=== PATIENT | female | born 1960 | race Caucasian/White ===

== ENCOUNTER 2020-01-21 00:50 | Outpatient (CLI) | payer OTHER, SELFPAY ==
[2020-01-21 17:34] LABS: SARS-CoV-2 RNA PCR Negative
== END 2020-01-21 00:51 | disposition home or self-care (01) ==
LOC: ANHCOVIDDT 00:50
PROVIDERS: PCP Nurse Practitioner Adult Health; Visit Provider Internal Medicine Gastroenterology
DX: Z01.818 Encounter for other preprocedural examination (principal); Z11.59 Encounter for screening for other viral diseases
CPT/HCPCS: 87635; C9803; U0003

== ENCOUNTER 2020-01-23 01:12 | Day surgery (SDC) | payer OTHER, SELFPAY ==
[2020-01-16 14:02] VITALS: BMI 29.9
[2020-01-23 09:30] VITALS: BP 114/66; PULSE 90; RESP 16; TEMP 37.1; O2SAT 100; BMI 29.4
--- NOTE | 2020-01-23 09:35 | PM.HPGS ---
History of Present Illness History of Present Illness Consent: Risks, benefits, and alternatives have been discussed and questions answered. Patient agrees to proceed with procedure. Chief complaint: neoplasm screening Narrative: Shaara Cancino is a 59 year old W female returns for follow-up colonoscopy secondary history of colonic polyps last colonoscopy was 3 years ago which time tubular adenoma was removed. There is no family history of colon polyps or colon cancer. The patient is asymptomatic. [facility] Past Medical History Medical History Hyperlipidemia Hypertension Hypothyroidism MVP (mitral valve prolapse) SVT (supraventricular tachycardia) s/p ablation Surgical History Surgical History (Updated 01/23/20 @ 09:37 by Tito Hall MD) Status post emergency section Status post hemorrhoidectomy Family History Family History Sibling Family history of hypothyroidism Social History Social History Smoking status: Never smoker Alcohol intake: current Gender identity (if verbalized by the patient): Female Meds Home Medications and Allergies Home Medications Medication Instructions Recorded Confirmed Type lisinopril 10 mg tablet 10 mg PO DAILY #90 tablet 07/24/19 01/16/20 Rx simvastatin 20 mg tablet 20 mg PO DAILY #90 tablet 01/07/20 01/16/20 Rx MegaRed [place]-3 Krill Oil 900 mg PO DAILY 01/16/20 01/16/20 History coenzyme Q10 [CoQ-10] 100 mg PO DAILY 01/16/20 01/16/20 History conj estrog-medroxyprogest ashlie 0.45 tablet PO DAILY 01/16/20 01/16/20 History [Prempro] fluticasone propionate [Flonase 1 spray INTRANASAL DAILY 01/16/20 01/16/20 History Allergy Relief] glucosamine-chondroitin [Osteo 250 tablet PO DAILY 01/16/20 01/16/20 History Bi-Flex] levothyroxine 75 mcg PO DAILY 01/16/20 01/16/20 History rstyarfyebgt-Va-srdo-minerals 1 tablet PO DAILY 01/16/20 01/16/20 History [Multiple Vitamin, Womens] Allergies Allergy/AdvReac Type Severity Reaction Status Date / Time Sulfa (Sulfonamide Allergy Unknown Rash Verified 01/16/20 13:59 Antibiotics) sulfamethizole Allergy Unknown Rash Verified 01/16/20 13:59 trimethoprim Allergy Unknown Rash Verified 01/16/20 13:59 Exam Const: Orientation/consciousness: patient oriented x3 Resp: Auscultation: clear to auscultation bilaterally Cardio: Rate: regular rate Rhythm: regular rhythm Heart sounds: no murmurs GI: GI Palp: Yes Soft to palpation, No Tenderness to palpation present (GI), Yes No hepatosplenomegaly present and No Palpable mass present Auscultation: normal bowel sounds Neuro: General: patient oriented x3 and no focal motor deficits Extrem: General: no pedal edema Assessment and Plan Additional Plan screening colonoscopy secondary history of colonic polyps
--- NOTE | 2020-01-23 09:45 | WPDANESEPPF ---
Anes - Initial Pre Proc Eval Procedure: Operation Date: 01/23/20 10:30 Proposed Procedures p Screening Colonoscopy - Tito Hall MD Date/Time: 01/23/20 09:45 Surgeon: Tito Hall MD Pre Op Diagnosis: neoplasm screening Patient Data Age: 59 Gender: F Height: 1.68 m Weight: 84 kg Allergies Allergy/AdvReac Type Severity Reaction Status Date / Time Sulfa (Sulfonamide Allergy Unknown Rash Verified 01/23/20 09:39 Antibiotics) sulfamethizole Allergy Unknown Rash Verified 01/23/20 09:39 trimethoprim Allergy Unknown Rash Verified 01/23/20 09:39 Home Medications Medication Instructions Recorded Confirmed Type lisinopril 10 mg tablet 10 mg PO DAILY #90 tablet 07/24/19 01/16/20 Rx simvastatin 20 mg tablet 20 mg PO DAILY #90 tablet 01/07/20 01/16/20 Rx MegaRed [place]-3 Krill Oil 900 mg PO DAILY 01/16/20 01/16/20 History coenzyme Q10 [CoQ-10] 100 mg PO DAILY 01/16/20 01/23/20 History conj estrog-medroxyprogest ashlie 0.45 tablet PO DAILY 01/16/20 01/16/20 History [Prempro] fluticasone propionate [Flonase 1 spray INTRANASAL DAILY 01/16/20 01/16/20 History Allergy Relief] glucosamine-chondroitin [Osteo 250 tablet PO DAILY 01/16/20 01/16/20 History Bi-Flex] levothyroxine 75 mcg PO DAILY 01/16/20 01/16/20 History nsbuzbyglqlj-Ng-boym-minerals 1 tablet PO DAILY 01/16/20 01/16/20 History [Multiple Vitamin, Womens] Patient hx anesthesia problems: none Family hx anesthesia problems: none PMFSH Past Medical History Medical History Hyperlipidemia Hypertension Hypothyroidism MVP (mitral valve prolapse) SVT (supraventricular tachycardia) s/p ablation Surgical History Surgical History (Updated 01/23/20 @ 09:37 by Tito Hall MD) Status post emergency section Status post hemorrhoidectomy Family History Family History Sibling Family history of hypothyroidism Social History Social History Smoking status: Never smoker Alcohol intake: current Gender identity (if verbalized by the patient): Female Anes - Eval Final PreProcedure Day of Procedure 01/23/20 09:45 Patient weight: overweight Heart: regular rate and rhythm Lungs: clear to auscultation and normal air movement Airway: Mallampati scale class II Neurological: alert and oriented Last oral intake: >/= 8 hours ASA classification: III Emergent: no Anesthetic plan: proceed Anesthesia type and monitoring: general GIVS and standard monitoring Informed Consent: The patient's anesthetic plan and its attendant risks and benefits were discussed with the patient/family/POA. Questions were solicited and answers provided to the satisfaction of the patient/family/POA.
[2020-01-23] MEDS: LACTATED RINGERS 1,000 ML 150 ML IV CONT (09:57)
[2020-01-23 11:09] VITALS: BP 110/65; PULSE 76; RESP 25; O2SAT 98
[2020-01-23 11:19] VITALS: BP 111/56; PULSE 72; RESP 20; O2SAT 100
[2020-01-23 11:29] VITALS: BP 113/69; PULSE 60; RESP 13; O2SAT 100
== END 2020-01-23 11:35 | disposition home or self-care (01) ==
PROVIDERS: PCP Nurse Practitioner Adult Health; Visit Provider Internal Medicine Gastroenterology
PROC: 0DJD8ZZ Inspection of Lower Intestinal Tract, Via Natural or Artificial Opening Endoscopic (ICD-10-PCS; CPT 45378; principal; 2020-01-23 10:30)
DX: Z12.11 Encounter for screening for malignant neoplasm of colon (principal); K57.30 Diverticulosis of large intestine without perforation or abscess without bleeding; Z86.010 Personal history of colon polyps; E78.5 Hyperlipidemia, unspecified; I10 Essential (primary) hypertension; E03.9 Hypothyroidism, unspecified; I34.1 Nonrheumatic mitral (valve) prolapse
CPT/HCPCS: 45378; J2704; J7120

== ENCOUNTER → 2020-06-09 12:39 | Outpatient (CLI) | payer OTHER, SELFPAY ==
--- NOTE | ~2020-06-09 | MM_ITS ---
EXAMINATION: MM screening [facility] [place] HISTORY: Screening mammogram TECHNIQUE: Craniocaudal and mediolateral oblique 3-D tomosynthesis images were obtained and synthetic 2-D images were generated. CAD analysis was submitted and interpreted. COMPARISON: 02/24/2019 713 02/01/2018, 01/16/2017 BREAST PARENCHYMAL COMPOSITION: There are scattered areas of fibroglandular density. FINDINGS: There is no evidence of suspicious mass, calcification, or architectural distortion to sugg est malignancy in either breast. There has been no suspicious interval change. IMPRESSION: 1. No mammographic evidence of malignancy. 2. Recommend routine screening mammography in one year. BI-RADS Category 1: Negative Reviewed, dictated and finalized at location A. NESS SEGMENT MANAGER
== END ==
PROVIDERS: PCP Nurse Practitioner Adult Health; Visit Provider Physician Assistant
DX: Z12.31 Encounter for screening mammogram for malignant neoplasm of breast (principal)
CPT/HCPCS: 77063; 77067

== ENCOUNTER → 2021-04-26 16:06 | Outpatient (CLI) | payer OTHER, SELFPAY ==
--- NOTE | ~2021-04-26 | US_ITS ---
EXAMINATION: US thyroid EXAM DATE: 04/26/2021 16:21 INDICATION: Nontoxic single thyroid nodule. TECHNIQUE: Multiple grayscale and Doppler images of the thyroid were obtained (by a technologist who performed the scan) and subsequently reviewed. Individual nodules and recommendations may be reporte d in accordance with TI-RADS system as designated by the 2017 ACR White Paper TI-RADS committee. The re is no prior study for comparison. FINDINGS: The right thyroid lobe measures 4.0 x 1.4 x 1.4 cm, the left measuring 3.2 x 1.1 x 0.9 cm. There is m oderately diffusely heterogeneous thyroid echogenicity. Possible identification of left thyroid lobe category TR 4 nodule measuring 5 x 7 mm. This is not likely clinically significant. Right thyroid lob e is mildly enlarged. IMPRESSION: Heterogeneous thyroid, mildly enlarged right thyroid lobe. Return to clinical follow-up a nd if additional palpable abnormality develops a repeat ultrasound can be obtained. Reviewed, dictated and finalized at location A. IMPRESSION: Heterogeneous thyroid, mildly enlarged right thyroid lobe. Return t o clinical follow-up and if additional palpable abnormality develops a repeat u ltrasound can be obtained.
== END ==
PROVIDERS: PCP Nurse Practitioner Adult Health; Visit Provider Otolaryngology
DX: E04.9 Nontoxic goiter, unspecified (principal)
CPT/HCPCS: 76536

== ENCOUNTER 2022-06-09 11:27 | Outpatient (CLI) | payer OTHER, SELFPAY ==
[2022-06-09 11:39] LABS: Basophils Absolute Auto 0.1 K/mm3 (0.0-0.1); Basophils Percent Auto 1.1 % (0.2-1.2); Eosinophils Absolute Auto 0.2 K/mm3 (0-0.3); Eosinophils Percent Auto 2.9 % (0-4.4); Hematocrit 36.7 % (37.0-47.0); Hemoglobin 11.8 g/dL (12.0-15.0); Immature Granulocyte Absolute 0.01 K/mm3 (0.00-0.031); Immature Granulocyte Percent A 0.2 % (0-0.5); Lymphocytes Absolute Auto 1.32 K/mm3 (0.9-3.2); Lymphocytes Percent Auto 25.1 % (18.3-44.2); Mean Corpuscular HGB Conc 32.2 g/dl (32-36); Mean Corpuscular Hemoglobin 27.9 pg (26-34); Mean Corpuscular Volume 86.8 fl (80-100); Mean Platelet Volume 9.7 fl (7.4-10.4); Monocytes Absolute Auto 0.7 K/mm3 (0.1-0.6); Monocytes Percent Auto 14.1 % (2.6-8.5); Neutrophils Percent Auto 56.6 % (45.5-73.1); Platelet Count Result 242 k/mm3 (150-375); Red Blood Count 4.23 M/mm3 (4.2-5.4); White Blood Count 5.3 K/mm3 (4.5-10.0)
[2022-06-09 13:10] LABS: Iron 36 ug/dL (37-170)
[2022-06-09 13:14] LABS: Alanine Aminotransferase 13 U/L (6-35); Albumin Level 4.1 g/dL (3.5-5.1); Alkaline Phosphatase 78 U/L (38-126); Anion Gap 9 mmol/L (8-16); Aspartate Amino Transferase 19 U/L (14-36); Bilirubin,Total 0.3 mg/dL (0.2-1.3); Blood Urea Nitrogen 15 mg/dL (7-17); Calcium 8.7 mg/dL (8.4-10.2); Carbon Dioxide 25 mmol/L (22-30); Chloride 105 mmol/L (98-107); Estimated Glomerular Filt Rate > 60; Glucose 91 mg/dL (65-110); Potassium 3.9 mmol/L (3.4-5.0); Sodium 139 mmol/L (137-145)
[2022-06-09 13:20] LABS: Percent Iron Saturation 8 % (20-50)
[2022-06-09 13:47] LABS: Ferritin 9.47 ng/mL (11.1-264)
[2022-06-09 14:19] LABS: Folic Acid 12.7 ng/mL (2.76->20)
== END 2022-06-09 11:28 | disposition home or self-care (01) ==
LOC: ANHLAB 11:28
PROVIDERS: PCP Nurse Practitioner Adult Health; Visit Provider Internal Medicine Hematology & Oncology
DX: D64.9 Anemia, unspecified (principal)
CPT/HCPCS: 36415; 80053; 82607; 82728; 82746; 83540; 83550; 85025

== ENCOUNTER → 2022-06-16 16:00 | Outpatient (CLI) | payer OTHER, SELFPAY ==
--- NOTE | ~2022-06-16 | DEXA_ITS ---
Bone Density Report Name: MOO BOYD Age: 61 Sex: Female Ethnicity: White Date of : 1960 Indication: monitoring treatment; postmenopausal Referring Provider: DEMARIOCARRI Study: Bone densitometry was performed. Exam Date: June 16, 2022 Accession number: [id number] Bone Density: Region BMD T-score Z-score Classification AP Spine (L1-L4) 1.099 0.5 1.9 Normal Femoral Neck (Left) 0.810 -0.4 1.0 Normal Total Hip (Left) 0.967 0.2 1.2 Normal Femoral Neck (Right) 0.789 -0.5 0.8 Normal Total Hip (Right) 0.973 0.3 1.2 Normal Total Hip Mean 0.970 0.3 1.2 Normal World Health Organization criteria for BMD impression classify patients as: Normal (T-score at or above -1.0), Osteopenia (T-score between -1.0 and -2.5), or Osteoporosis (T-score at or below -2.5). 10-year Fracture Risk: FRAX not reported because: All T-scores for Spine Total, Hip Total, Femoral Neck at or above -1.0 Treated for osteoporosis Previous Exams: Region Exam Age BMD T-score BMD Change BMD Change Date g/cm2 vs Baseline vs Previous AP Spine(L1-L4) 06/16/2022 61 1.099 0.5 0.023 0.023 06/20/2017 56 1.076 0.3 Total Hip(Left) 06/16/2022 61 0.967 0.2 -0.020 -0.020 06/20/2017 56 0.987 0.4 Total Hip(Right) 06/16/2022 61 0.973 0.3 -0.022 -0.022 06/20/2017 56 0.996 0.4 *Denotes significance at 95% confidence level, LSC for AP Spine = 0.022 g/cm2, LSC for Total Hip = 0.027 g/cm2 Clinical Information Provided by Patient: Is being treated for osteoporosis Has used the following medications: HRT (i.e. estrogen/hormone therapy), Calcium Patient maximum height was 67 Menopause Age: 52 Does not regularly consume dairy products Drinks caffeinated beverages Onset of menses at age 14 Number of children 2 Impression: The patient has normal bone mass. No significant bone loss was observed. Discussion: PATIENT UNDER TREATMENT WITH NO SIGNIFICANT BMD LOSS SINCE LAST EXAM. In an untreated patient, BMD typically declines with age. A lack of decline or gain is usually a sign that treatment is efficacious and fracture risk is reduced. It is important to ask patients whether they are taking their medications and to encourage continued and appropriate compliance with their osteoporosis therapies to reduce fracture risk. It is also important to review their risk factors and encourage appropriate calcium
== END ==
PROVIDERS: PCP Nurse Practitioner Adult Health; Visit Provider Nurse Practitioner Adult Health
DX: Z78.0 Asymptomatic menopausal state (principal)
CPT/HCPCS: 77080

== ENCOUNTER → 2022-06-20 13:36 | Outpatient (CLI) | payer OTHER, SELFPAY ==
--- NOTE | ~2022-06-20 | MM_ITS ---
EXAMINATION: MM screening [facility] [place] HISTORY: Screening mammogram TECHNIQUE: Craniocaudal and mediolateral oblique 3-D tomosynthesis images were obtained and synthetic 2-D images were generated. CAD analysis was submitted and interpreted. COMPARISON: 06/09/2020, 02/24/2019, 02/08/2018 bilateral screening mammogram examinations BREAST PARENCHYMAL COMPOSITION: There are scattered areas of fibroglandular density. FINDINGS: There is no evidence of suspicious mass, calcification, or architectural distortion to sugg est malignancy in either breast. There has been no suspicious interval change. IMPRESSION: 1. No mammographic evidence of malignancy. 2. Recommend routine screening mammography in one year. BI-RADS Category 1: Negative Reviewed, dictated and finalized at location A. FORCE PLANNER
== END ==
PROVIDERS: PCP Nurse Practitioner Adult Health; Visit Provider Nurse Practitioner Adult Health
DX: Z12.31 Encounter for screening mammogram for malignant neoplasm of breast (principal)
CPT/HCPCS: 77063; 77067

== ENCOUNTER 2022-08-14 10:34 | Outpatient (CLI) | payer OTHER, SELFPAY ==
[2022-08-14 10:48] LABS: Hematocrit 41.3 % (37.0-47.0); Hemoglobin 13.8 g/dL (12.0-15.0); Mean Corpuscular HGB Conc 33.4 g/dl (32-36); Mean Corpuscular Hemoglobin 30.7 pg (26-34); Mean Corpuscular Volume 91.8 fl (80-100); Mean Platelet Volume 10.5 fl (7.4-10.4); Platelet Count Result 236 k/mm3 (150-375); Red Cell Distribution Width 13.8 % (11.5-14.5); White Blood Count 6.8 K/mm3 (4.5-10.0)
[2022-08-14 12:25] LABS: Iron 120 ug/dL (37-170)
[2022-08-14 12:28] LABS: Alanine Aminotransferase 13 U/L (6-35); Albumin Level 4.2 g/dL (3.5-5.1); Alkaline Phosphatase 75 U/L (38-126); Anion Gap 6 mmol/L (8-16); Aspartate Amino Transferase 18 U/L (14-36); Bilirubin,Total 0.4 mg/dL (0.2-1.3); Blood Urea Nitrogen 12 mg/dL (7-17); Calcium 8.6 mg/dL (8.4-10.2); Carbon Dioxide 27 mmol/L (22-30); Chloride 109 mmol/L (98-107); Estimated Glomerular Filt Rate > 60; Glucose 86 mg/dL (65-110); Potassium 4.2 mmol/L (3.4-5.0); Sodium 142 mmol/L (137-145)
[2022-08-14 13:26] LABS: Percent Iron Saturation 29 % (20-50)
[2022-08-14 13:38] LABS: Folic Acid 11.7 ng/mL (2.76->20)
== END 2022-08-14 10:35 | disposition home or self-care (01) ==
LOC: ANHLAB 10:35
PROVIDERS: PCP Nurse Practitioner Adult Health; Visit Provider Internal Medicine Hematology & Oncology
DX: D64.9 Anemia, unspecified (principal)
CPT/HCPCS: 36415; 80053; 82607; 82728; 82746; 83540; 83550; 85027

== ENCOUNTER 2023-02-06 11:41 | Outpatient (CLI) | payer OTHER, SELFPAY ==
[2023-02-06 11:50] LABS: Basophils Absolute Auto 0.1 K/mm3 (0.0-0.1); Basophils Percent Auto 1.3 % (0.2-1.2); Eosinophils Absolute Auto 0.2 K/mm3 (0-0.3); Eosinophils Percent Auto 2.3 % (0-4.4); Hematocrit 41.6 % (37.0-47.0); Hemoglobin 14.2 g/dL (12.0-15.0); Immature Granulocyte Absolute 0.01 K/mm3 (0.00-0.031); Immature Granulocyte Percent A 0.1 % (0-0.5); Lymphocytes Absolute Auto 1.83 K/mm3 (0.9-3.2); Lymphocytes Percent Auto 26.7 % (18.3-44.2); Mean Corpuscular HGB Conc 34.1 g/dl (32-36); Mean Corpuscular Hemoglobin 31.6 pg (26-34); Mean Corpuscular Volume 92.7 fl (80-100); Mean Platelet Volume 9.4 fl (7.4-10.4); Monocytes Absolute Auto 0.8 K/mm3 (0.1-0.6); Monocytes Percent Auto 11.5 % (2.6-8.5); Neutrophils Percent Auto 58.1 % (45.5-73.1); Platelet Count Result 245 k/mm3 (150-375); Red Blood Count 4.49 M/mm3 (4.2-5.4); Red Cell Distribution Width 11.7 % (11.5-14.5); White Blood Count 6.9 K/mm3 (4.5-10.0)
[2023-02-06 13:28] LABS: Iron 226 ug/dL (37-170)
[2023-02-06 13:38] LABS: Percent Iron Saturation 65 % (20-50)
[2023-02-06 13:43] LABS: Folic Acid 14.3 ng/mL (2.76->20)
== END 2023-02-06 11:42 | disposition home or self-care (01) ==
LOC: ANHLAB 11:43
PROVIDERS: PCP Nurse Practitioner Adult Health; Visit Provider Internal Medicine Hematology & Oncology
DX: D64.9 Anemia, unspecified (principal)
CPT/HCPCS: 36415; 82607; 82728; 82746; 83540; 83550; 85025

== ENCOUNTER 2023-02-12 13:32 | Outpatient (CLI) | payer OTHER, SELFPAY | END 2023-02-12 13:33 | disposition home or self-care (01) | LOC: ANHLAB 13:33 | PROVIDERS: PCP Nurse Practitioner Adult Health; Visit Provider Internal Medicine Hematology & Oncology | DX: E83.19 Other disorders of iron metabolism (principal) | CPT/HCPCS: 36415; 81256 ==

== ENCOUNTER 2023-05-10 15:38 | Outpatient (CLI) | payer OTHER, SELFPAY ==
[2023-05-10 15:53] LABS: Basophils Absolute Auto 0.1 K/mm3 (0.0-0.1); Eosinophils Absolute Auto 0.2 K/mm3 (0-0.3); Eosinophils Percent Auto 2.7 % (0-4.4); Hematocrit 39.9 % (37.0-47.0); Hemoglobin 13.5 g/dL (12.0-15.0); Immature Granulocyte Absolute 0.02 K/mm3 (0.00-0.031); Immature Granulocyte Percent A 0.3 % (0-0.5); Lymphocytes Absolute Auto 1.95 K/mm3 (0.9-3.2); Lymphocytes Percent Auto 27.9 % (18.3-44.2); Mean Corpuscular HGB Conc 33.8 g/dl (32-36); Mean Corpuscular Hemoglobin 31.5 pg (26-34); Mean Corpuscular Volume 93.2 fl (80-100); Mean Platelet Volume 9.8 fl (7.4-10.4); Monocytes Absolute Auto 0.7 K/mm3 (0.1-0.6); Neutrophils Absolute Auto 4.1 K/mm3 (1.3-6.7); Neutrophils Percent Auto 58.1 % (45.5-73.1); Platelet Count Result 249 k/mm3 (150-375); Red Blood Count 4.28 M/mm3 (4.2-5.4); Red Cell Distribution Width 11.5 % (11.5-14.5)
[2023-05-10 19:11] LABS: Iron 85 ug/dL (37-170); Percent Iron Saturation 28 % (20-50)
== END 2023-05-10 15:39 | disposition home or self-care (01) ==
PROVIDERS: PCP Nurse Practitioner Adult Health; Visit Provider Internal Medicine Hematology & Oncology
DX: E83.19 Other disorders of iron metabolism (principal)
CPT/HCPCS: 36415; 81256; 82728; 83540; 83550; 85025

== ENCOUNTER 2023-08-21 15:42 | Outpatient (CLI) | payer OTHER, SELFPAY ==
[2023-08-21 15:52] LABS: Basophils Absolute Auto 0.1 K/mm3 (0.0-0.1); Basophils Percent Auto 1.1 % (0.2-1.2); Eosinophils Absolute Auto 0.2 K/mm3 (0-0.3); Hematocrit 40.7 % (37.0-47.0); Hemoglobin 13.6 g/dL (12.0-15.0); Immature Granulocyte Absolute 0.02 K/mm3 (0.00-0.031); Immature Granulocyte Percent A 0.2 % (0-0.5); Lymphocytes Absolute Auto 2.13 K/mm3 (0.9-3.2); Lymphocytes Percent Auto 26.2 % (18.3-44.2); Mean Corpuscular HGB Conc 33.4 g/dl (32-36); Mean Corpuscular Hemoglobin 30.9 pg (26-34); Mean Corpuscular Volume 92.5 fl (80-100); Monocytes Absolute Auto 0.7 K/mm3 (0.1-0.6); Monocytes Percent Auto 8.7 % (2.6-8.5); Neutrophils Percent Auto 61.8 % (45.5-73.1); Platelet Count Result 246 k/mm3 (150-375); Red Cell Distribution Width 11.7 % (11.5-14.5); White Blood Count 8.1 K/mm3 (4.5-10.0)
[2023-08-21 17:41] LABS: Iron 87 ug/dL (37-170)
[2023-08-21 17:51] LABS: Percent Iron Saturation 25 % (20-50)
== END 2023-08-21 15:43 | disposition home or self-care (01) ==
LOC: ANHLAB 15:44
PROVIDERS: PCP Family Medicine; Visit Provider Internal Medicine Hematology & Oncology
DX: E83.19 Other disorders of iron metabolism (principal)
CPT/HCPCS: 36415; 82728; 83540; 83550; 85025

== ENCOUNTER 2023-12-26 12:15 | Outpatient (CLI) | payer OTHER, SELFPAY ==
[2023-12-26 12:35] LABS: Basophils Absolute Auto 0.1 K/mm3 (0.0-0.1); Basophils Percent Auto 1.1 % (0.2-1.2); Eosinophils Absolute Auto 0.1 K/mm3 (0-0.3); Eosinophils Percent Auto 1.7 % (0-4.4); Hematocrit 42.9 % (37.0-47.0); Immature Granulocyte Absolute 0.03 K/mm3 (0.00-0.031); Immature Granulocyte Percent A 0.4 % (0-0.5); Lymphocytes Absolute Auto 1.92 K/mm3 (0.9-3.2); Lymphocytes Percent Auto 23.6 % (18.3-44.2); Mean Corpuscular HGB Conc 32.6 g/dl (32-36); Mean Corpuscular Hemoglobin 30.6 pg (26-34); Mean Corpuscular Volume 93.7 fl (80-100); Mean Platelet Volume 10.1 fl (7.4-10.4); Monocytes Absolute Auto 0.8 K/mm3 (0.1-0.6); Monocytes Percent Auto 9.6 % (2.6-8.5); Neutrophils Absolute Auto 5.2 K/mm3 (1.3-6.7); Neutrophils Percent Auto 63.6 % (45.5-73.1); Platelet Count Result 238 k/mm3 (150-375); Red Blood Count 4.58 M/mm3 (4.2-5.4); Red Cell Distribution Width 11.9 % (11.5-14.5); White Blood Count 8.1 K/mm3 (4.5-10.0)
[2023-12-26 18:40] LABS: Iron 122 ug/dL (37-170)
[2023-12-26 18:49] LABS: Percent Iron Saturation 37 % (20-50)
== END 2023-12-26 12:16 | disposition home or self-care (01) ==
LOC: ANHLAB 12:17
PROVIDERS: PCP Physician Assistant; Visit Provider Internal Medicine Hematology & Oncology
DX: E83.19 Other disorders of iron metabolism (principal)
CPT/HCPCS: 36415; 82728; 83540; 83550; 85025

== ENCOUNTER 2023-12-27 15:40 | Outpatient (CLI) | payer OTHER, SELFPAY ==
--- NOTE | ~2023-12-27 | MM_ITS ---
EXAMINATION: MM screening [facility] [place] HISTORY: Screening TECHNIQUE: Craniocaudal and mediolateral oblique 3-D tomosynthesis images were obtained and synthetic 2-D images were generated. CAD analysis was submitted and interpreted. COMPARISON: Comparison to multiple prior studies sequentially, with oldest reviewed study dated 01/16. BREAST PARENCHYMAL COMPOSITION: Not dense: There are scattered areas of fibroglandular density. FINDINGS: There is no evidence of suspicious mass, calcification, or architectural distortion to sugg est malignancy in either breast. There has been no suspicious interval change. IMPRESSION: 1. No mammographic evidence of malignancy. 2. Recommend routine screening mammography in one year. BI-RADS Category 1: Negative Reviewed, dictated and finalized at location B.
== END 2023-12-27 15:41 ==
LOC: MICIMG 15:40
PROVIDERS: PCP Physician Assistant; Visit Provider Nurse Practitioner
DX: Z12.31 Encounter for screening mammogram for malignant neoplasm of breast (principal)
CPT/HCPCS: 77063; 77067

== ENCOUNTER 2024-03-20 15:49 | Outpatient (CLI) | payer OTHER, SELFPAY ==
--- NOTE | ~2024-03-20 | CT_ITS ---
EXAMINATION: CT soft tissue neck w con DATE: 03/20/2024 16:17 INDICATION: Otalgia, right ear. TECHNIQUE: Computed tomography (CT) of the neck was performed with 75 mL Omnipaque-350 intravenous co ntrast. Automated exposure control and iterative reconstruction technique were employed. The dose-sergio gth product was 338.89 mGy-cm. COMPARISON: None FINDINGS: There are no pathologically enlarged lymph nodes. There is no significant plaque in the pro ximal internal coronary arteries. There is 0% stenosis of the proximal internal carotid arteries rela tive to normal distal artery lumen diameters. The tympanic cavities and mastoid air cells are normal. The external auditory canals are normal. The parotid glands and submandibular glands are normal. The re is mild cervical spondylosis. There is severe osteoarthritis of the temporomandibular joints. Ther e is a loose body in right temporomandibular joint. IMPRESSION: 1. Severe osteoarthritis of the temporomandibular joints. Loose body in right temporomandibular joint . Reviewed, dictated and finalized at location A. IMPRESSION: 1. Severe osteoarthritis of the temporomandibular joints. Loose body in right t emporomandibular joint.
[2024-03-20 16:12] LABS: Estimated Glomerular Filt Rate > 60
== END 2024-03-20 15:50 ==
PROVIDERS: PCP Physician Assistant; Visit Provider Otolaryngology
DX: M19.09 Primary osteoarthritis, other specified site (principal)
CPT/HCPCS: 70491; Q9967

== ENCOUNTER 2024-04-28 15:52 | Outpatient (CLI) | payer OTHER, SELFPAY ==
[2024-04-28 16:05] LABS: Basophils Absolute Auto 0.1 K/mm3 (0.0-0.1); Basophils Percent Auto 0.9 % (0.2-1.2); Eosinophils Absolute Auto 0.1 K/mm3 (0-0.3); Eosinophils Percent Auto 1.2 % (0-4.4); Hematocrit 37.7 % (37.0-47.0); Hemoglobin 12.7 g/dL (12.0-15.0); Immature Granulocyte Absolute 0.03 K/mm3 (0.00-0.031); Immature Granulocyte Percent A 0.3 % (0-0.5); Lymphocytes Absolute Auto 2.25 K/mm3 (0.9-3.2); Lymphocytes Percent Auto 21.5 % (18.3-44.2); Mean Corpuscular HGB Conc 33.7 g/dl (32-36); Mean Corpuscular Hemoglobin 31.2 pg (26-34); Mean Corpuscular Volume 92.6 fl (80-100); Mean Platelet Volume 10.2 fl (7.4-10.4); Monocytes Absolute Auto 0.7 K/mm3 (0.1-0.6); Monocytes Percent Auto 7.1 % (2.6-8.5); Neutrophils Absolute Auto 7.2 K/mm3 (1.3-6.7); Platelet Count Result 264 k/mm3 (150-375); Red Blood Count 4.07 M/mm3 (4.2-5.4); Red Cell Distribution Width 11.9 % (11.5-14.5); White Blood Count 10.5 K/mm3 (4.5-10.0)
[2024-04-28 16:21] LABS: Iron 82 ug/dL (37-170)
[2024-04-28 16:31] LABS: Percent Iron Saturation 23 % (20-50)
== END 2024-04-28 15:53 | disposition home or self-care (01) ==
LOC: ANHLAB 15:54
PROVIDERS: PCP Physician Assistant; Visit Provider Internal Medicine Hematology & Oncology
DX: E83.19 Other disorders of iron metabolism (principal)
CPT/HCPCS: 36415; 82728; 83540; 83550; 85025

== ENCOUNTER 2024-10-28 15:39 | Outpatient (CLI) | payer OTHER, SELFPAY ==
[2024-10-28 15:52] LABS: Hematocrit 36.5 % (37.0-47.0); Hemoglobin 11.9 g/dL (12.0-15.0); Mean Corpuscular HGB Conc 32.6 g/dl (32-36); Mean Corpuscular Hemoglobin 30.1 pg (26-34); Mean Corpuscular Volume 92.2 fl (80-100); Mean Platelet Volume 9.9 fl (7.4-10.4); Platelet Count Result 246 k/mm3 (150-375); Red Blood Count 3.96 M/mm3 (4.2-5.4); White Blood Count 8.2 K/mm3 (4.5-10.0)
--- OUTSIDE RECORDS SUMMARY | 2024-10-28 17:06 | XMS_ITS | Data Portability ---
Author Organization [facility] Address [address] [place] [address] Care Team Providers Care Ems Instructor Name Role Phone ELIA ROSSI Primary Care Provider [phone] DINA SANDOVAL Primary Care Provider [phone] Assessment Encounter Date Assessment Date Assessment LastModified by Organization Details LastModified Time 09/05/2022 09/05/2022 Annual gynecological exam performed. Patient will come back in a year unless there are new symptoms. [email or web address] Not available 09/05/2022 16:56:20 09/14/2023 09/14/2023 Annual gynecological exam performed. Patient will come back in a year unless there are new symptoms. Not available 09/14/2023 10:55:17 10/01/2024 10/01/2024 Annual gynecological exam performed. Patient will come back in a year unless there are new symptoms. [email or web address] Not available 10/01/2024 17:09:17 Plan of Treatment Reminders Order Date Submit Date Provider Last Modified By Organization Details Last Modified Time Details Appointments None recorded. Lab None recorded. Referral None recorded. Procedures None recorded. Surgeries None recorded. Imaging MAMMO, diagnostic, digital, unilateral - Right breast lump noted at 5 o'clock position 2024 [facility] [address], [facility] [address], [place], [address], 12:10:10 MAMMO, screening, digital, bilateral 2023 024 [facility], [address], [address], [place], [address], 4 17:47:44 Medication Orders None recorded. Patient TargetsNo targets recorded. Patient InstructionsNo instructions recorded. Reason for Referral None Reported. Results Created Date Observation Date Name Description Value Unit Range Abnormal Flag Note LastModifiedBy Organization Detail LastModifiedTime 09/05/19 23 09/05/2022 IMAGE GUIDE D PAP AND HPV REGAR DLESS image guided Pap, HPV regardless of Pap result SEE RESULT S BELOW CASE REPOR T: Cytol ogy Gynec ologi john Repor t Case: [id number] Autho doreenrobbie joe Provi eleni: Maria Guadalupe Steele, JAYANT Colle cted: 09/05 1659 Order ing Locat ion: [place] [facility] Recei chip: 09/06 0230 First Scree n: Melony Lerma, CT Rescr een: Mari Sánchez ret, CT Speci men: Scree álvaro Pap - Image d, Cervi x STATE MENT OF ADEQU ACY: Satis facto ry for evalu ation Trans forma tion zone compo nent absen t The absen ce of an endoc ervic al compo nent was confi rmed by an addit ional scree ner. FINAL DIAGN OSIS: Negat jess for Intra epith elial Lesio n or Kathy olsen (NIL) . Elect perla mccarty shun d by Mari Sánchez ret, CT on 023 at 2:21 PM ----- ----- ----- ----- ----- ----- ----- ----- ----- ----- ----- ----- ----- ----- ----- ----- ----- ---- HPV RESUL TS: HPV mRNA E6/E7 : No HPV mRNA Detec jeremiah NOTE: This high risk HPV mRNA assay detec ts fourt een high- risk HPV types (16, 18, 31, 33, 35, 39, 45, 51, 52, 56, 58, 59, 66, 68) witho ut diffe renti ation . COMME NT: Note: This speci men was revie wed by a Cytot echno logis t and/o r Patho logis t (as indic ated in this repor t) after evalu ation using the Thinp rep Imagi ng Syste m. CLINI JOHN INFOR MATIO N: Menst rual Statu s: LMP (if appli cable ): Clini john Histo ry/Pr eviou s Pap: Type of Neopl arlin (if appli cable ): Signi fican t Clini john Findi ngs: Other Histo ry: Hormo ritchie (if appli cable ): PAP EDUCA GADIEL L NOTE: The Pap Test is a scree álvaro test with an inher ent false negat jess rate. Liqui d-bas ed sampl ing may decre ase, but will not elimi vasyl, false negat jess resul ts. A negat jess resul t does not precl ude the prese nce and/o r devel opmen t of disea se, since the prese nce of abnor mal cells in the sampl e depen ds on the locat ion of the lesio n and sampl ing techn ique. Ban nued regul ar scree álvaro is the best metho d of cance r preve ntion . If repor jeremiah cytol ogic findi ng do not corre late with physi john and/o r histo rical findi ngs, furth er inves tigat ion is recom abby d, as clini larry willoughby nted. Not Available [facility] (Lab) [address], [place], [address], 09/07/2022 15:23:07 09/14/19 24 09/14/2023 IMAGE GUIDE D PAP AND HPV REGAR DLESS image guided Pap, HPV regardless of Pap result SEE RESULT S BELOW CASE REPOR T: Cytol ogy Gynec ologi john Repor t Case: [id number] Autho velia g Provi eleni: Maria Guadalupe Steele, JAYANT Colle cted: 09/14 1403 Order ing Locat ion: [place] Patho logeduardo Recei chip: 09/17 0736 First Scree n: Fatimah Enciso, CT Speci men: Scree álvaro Pap - Image d, Cervi x STATE MENT OF ADEQU ACY: Satis facto ry for evalu ation Trans forma tion zone compo nent canno t be defin itive ly ident ified due to the prese nce of atrop hy or other hormo nal irwin es FINAL DIAGN OSIS: Negat jess for Intra epith elial Lesio n or Kathy olsen (NIL) . Atrop hic cell naldo kiser. Elect justinanayely manciaeduardo shun d by Fatimah Enciso, CT on 2023 at 7:42 AM ----- ----- ----- ----- ----- ----- ----- ----- ----- ----- ----- ----- ----- ----- ----- ----- ----- ---- HPV RESUL TS: HPV mRNA E6/E7 : No HPV mRNA Detec jeremiah NOTE: This high risk HPV mRNA assay detec ts fourt een high- risk HPV types (16, 18, 31, 33, 35, 39, 45, 51, 52, 56, 58, 59, 66, 68) witho ut diffe renti ation . COMME NT: This speci men was revie wed by a Cytot echno logis t and/o r Patho logis t (as indic ated in this repor t) after evalu ation using the Thinp rep Imagi ng Syste m. CLINI JOHN INFOR MATIO N: Menst rual Statu s: LMP (if appli cable ): Clini john Histo ry/Pr eviou s Pap: Type of Neopl arlin (if appli cable ): Signi fican t Clini john Findi ngs: Other Histo ry: Hormo ritchie (if appli cable ): PAP EDUCA GADIEL L NOTE: The Pap Test is a scree álvaro test with an inher ent false negat jess rate. Liqui d-bas ed sampl ing may decre ase, but will not elimi vasyl, false negat jess resul ts. A negat jess resul t does not precl ude the prese nce and/o r devel opmen t of disea se, since the prese nce of abnor mal cells in the sampl e depen ds on the locat ion of the lesio n and sampl ing techn ique. Ban nued regul ar scree álvaro is the best metho d of cance r preve ntion . If repor jeremiah cytol ogic findi ng do not corre late with physi john and/o r histo rical findi ngs, furth er inves tigat ion is recom abby d, as clini larry willoughby nted. Not Available [facility] (Lab) [address], [place], [address], 09/20/2023 08:46:55 10/02/19 25 10/01/2024 IMAGE GUIDE D PAP AND HPV REGAR DLESS image guided Pap, HPV regardless of Pap result SEE RESULT S BELOW CASE REPOR T: Cytol ogy Gynec ologi john Repor t Case: [id number] Autho velia g Provi eleni: Maria Guadalupe Steele, JAYANT Colle cted: 10/01 1706 Order ing Locat ion: [place] [facility] Recei chip: 10/02 0151 First Scree n: Nonichole ni, Moham ed, CT Speci men: Scree álvaro Pap - Image d, Cervi x STATE MENT OF ADEQU ACY: Satis facto ry for evalu ation Trans forma tion zone compo nent canno t be defin itive ly ident ified due to the prese nce of atrop hy or other hormo nal irwin es ----- ----- ----- ----- ----- ----- ----- ----- ----- ----- ----- ----- ----- ----- ----- ----- ----- ---- FINAL DIAGN OSIS: Negat jess for Intra epith elial Lesio n or Kathy burdency (NIL) . Atrop hic cell naldo rn. Elect perla mccarty shun d by Hermes rogel, CT on 025 at 0133 CLAY MINER ----- ----- ----- ----- ----- ----- ----- ----- ----- ----- ----- ----- ----- ----- ----- ----- ----- ---- HPV RESUL TS: HPV mRNA E6/E7 : No HPV mRNA Detec jeremiah NOTE: This high risk HPV mRNA assay detec ts fourt een high- risk HPV types (16, 18, 31, 33, 35, 39, 45, 51, 52, 56, 58, 59, 66, 68) witho ut diffe renti ation . COMME NT: This speci men was revie wed by a Cytot echno logis t and/o r Patho logis t (as indic ated in this repor t) after evalu ation using the Thinp rep Imagi ng Syste m. CLINI JOHN INFOR MATIO N: Menst rual Statu s: LMP (if appli cable ): Clini john Histo ry/Pr eviou s Pap: Type of Neopl arlin (if appli cable ): Signi fican t Clini john Findi ngs: Other Histo ry: Hormo ritchie (if appli cable ): PAP EDUCA GADIEL L NOTE: The Pap Test is a scree álvaro test with an inher ent false negat jess rate. Liqui d-bas ed sampl ing may decre ase, but will not elimi vasyl, false negat jess resul ts. A negat jess resul t does not precl ude the prese nce and/o r devel opmen t of disea se, since the prese nce of abnor mal cells in the sampl e depen ds on the locat ion of the lesio n and sampl ing techn ique. Ban nued regul ar scree álvaro is the best metho d of cance r preve ntion . If repor jeremiah cytol ogic findi ng do not corre late with physi jonh and/o r histo rical findi ngs, furth er inves tigat ion is recom abby d, as clini larry willoughby nted. Not Available [facility] (Lab) [address], [place], [address], 10/05/2024 03:36:35 12/27/19 24 12/27/2023 MAMMO , scree álvaro, digit al, bilat eral No observ ation record ed. [facility] [address], [place], [address], 01/03/2024 11:18:28 08/22/1908/22/2024 MAMMO , diagn ostic , digit al, unila teral No observ ation record ed. [facility] [address], [place], [address], 08/25/2024 17:50:27 Result Notes None recorded. Problems Name Problem SNOMED Code Status Onset Date Resolution Date Notes Provider Name and Address Organization Details Recorded Time Microscop ic hematuria 941319581 Active 2015 Other microscopi c hematuria; Recorded Elsewhere: No Locatio n: [facility] rce: EHR Chroni c: N Practice ID: 0001 Billa ble Time: 10:30:00 AM Not Available [facility] 0 18:04:27 Postmenop ausal bleeding [id number] Active 2011 Postmenopa usal bleeding;R ecorded Elsewhere: No Locatio n: [facility] rce: EHR Chroni c: N Practice ID: 0001 Billa ble Time: 02:30:00 PM Not Available [facility] 0 18:04:27 Vaginitis and vulvovagi nitis Active 2011 Vaginitis; Recorded Elsewhere: No Locatio n: [facility] rce: EHR Chroni c: N Practice ID: 0001 Billa ble Time: 02:45:00 PM Not Available [facility] 0 18:04:27 Screening for malignant neoplasm of cervix Active 2011 Screening for malignant neoplasms of the cervix;Rec orded Elsewhere: No Locatio n: [facility] rce: EHR Chroni c: N Practice ID: 0001 Billa ble Time: 10:00:00 AM Not Available [facility] 0 18:04:27 Screening for malignant neoplasm of rectum Active 2018 Encounter for screening for malignant neoplasm of rectum;Rec orded Elsewhere: No Locatio n: [facility] rce: EHR Chroni c: N Practice ID: 0001 Billa ble Time: 10:30:00 AM Not Available [facility] 0 18:04:27 Atypical glandular cells on cervical Papanicol aou smear 525592375 Active 2014 Abnormal glandular Papanicola ou smear of cervix;Rec orded Elsewhere: No Locatio n: [facility] rce: EHR Chroni c: N Practice ID: 0001 Billa ble Time: 01:00:00 PM Not Available [facility] 0 18:04:[address] Concept Active 2018 Encntr for general adult medical exam w/o abnormal findings;R ecorded Elsewhere: No Locatio n: [facility] rce: EHR Chroni c: N Practice ID: 0001 Billa ble Time: 10:30:00 AM Not Available [facility] 0 18:04:27 Overweigh t [id number] Active 2013 Overweight ;Recorded Elsewhere: No Locatio n: [facility] rce: EHR Chroni c: N Practice ID: 0001 Billa ble Time: 02:00:00 PM Not Available [facility] 0 18:04:27 Specializ ed medical examinati on Active 2014 Gynecologi john Examinatio n;Recorded Elsewhere: No Locatio n: [facility] rce: EHR Chroni c: N Practice ID: 0001 Billa ble Time: 10:00:00 AM Not Available [facility] 0 18:04:[address] Concept Active 2015 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) w/o abn findings;R ecorded Elsewhere: No Locatio n: [facility] rce: EHR Chroni c: N Practice ID: 0001 Billa ble Time: 10:30:00 AM Not Available [facility] 0 18:04:27 Evaluatio n finding Active 2018 Hematuria, unspecifie d;Recorded Elsewhere: No Locatio n: [facility] rce: EHR Chroni c: N Practice ID: 0001 Billa ble Time: 10:30:00 AM Not Available [facility] 0 18:04:27 Neoplasti c disease of uncertain behavior [id number] Active 2011 Neoplasm of uncertain behavior, site unspecifie d;Recorded Elsewhere: No Locatio n: [facility] rce: EHR Chroni c: N Practice ID: 0001 Billa ble Time: 10:00:00 AM Not Available [facility] 0 18:04:27 Cyst of ovary 57716622 Active 2012 Other and unspecifie d ovarian cyst;Recor ded Elsewhere: No Locatio n: [facility] rce: EHR Chroni c: N Practice ID: 0001 Billa ble Time: 09:00:00 AM Not Available [facility] 0 18:04:28 Satisfact ory for evaluatio n but limited by absence of an endocervi john/trans formation zone component from a patient with a cervix [id number] Active 2011 SAT CERV SMR-NO TRNSFRM;Re corded Elsewhere: No Locatio n: [facility] rce: EHR Chroni c: Y Practice ID: 0001 Billa ble Time: 11:00:00 AM Not Available [facility] 0 18:04:28 Abnormal cervical Papanicol aou smear 129995714 Active 2011 SAT CERV SMR-NO TRNSFRM;Re corded Elsewhere: No Locatio n: [facility] rce: EHR Chroni c: Y Practice ID: 0001 Billa ble Time: 11:00:00 AM Not Available [facility] 0 18:04:28 Abnormal cervical Papanicol aou smear with 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 129165843 Active 2013 Cervical high risk human papillomav irus (HPV) DNA test positive;R ecorded Elsewhere: No Locatio n: [facility] rce: EHR Chroni c: N Practice ID: 0001 Billa ble Time: 02:00:00 PM Not Available [facility] 0 18:04:28 Adult health examinati on Active 2014 ROUTINE MEDICAL EXAM;Recor ded Elsewhere: No Locatio n: [facility] rce: EHR Chroni c: N Practice ID: 0001 Billa ble Time: 10:00:00 AM Not Available [facility] 0 18:04:28 Menopausa l symptom 66307586 Active 2011 Menopausal or female climacteri c states;Rec orded Elsewhere: No Locatio n: [facility] rce: EHR Chroni c: N Practice ID: 0001 Billa ble Time: 02:00:00 PM Not Available [facility] 0 18:04:28 Dysfuncti onal uterine bleeding Active 2011 Other disorders of menstruati on and other abnormal bleeding from female genital tract;Joshua rded Elsewhere: No Locatio n: [facility] rce: EHR Chroni c: N Practice ID: 0001 Billa ble Time: 04:45:00 PM Not Available [facility] 0 18:04:28 Radiologi c finding 575701554 Active 2017 Oth abn and inconclusi ve findings on dx imaging of breast;Rec orded Elsewhere: No Locatio n: [facility] rce: EHR Chroni c: N Practice ID: 0001 Billa ble Time: 10:22:40 AM Not Available [facility] 0 18:04:28 Urinary tract infectiou s disease 65800740 Active 2014 UTI;Record ed Elsewhere: No Locatio n: [facility] rce: EHR Chroni c: N Practice ID: 0001 Billa ble Time: 10:00:00 AM Not Available [facility] 0 18:04:29 Screening for malignant neoplasm of colon Active 2010 Special screening for malignant neoplasms, colon;Prac christina ID: 0001 Not Available [facility] 0 18:04:29 test negative 628953413 Active 2011 Negative Test;Abelinot ice ID: 0001 Not Available [facility] 0 18:04:30 Problem Notes None recorded. Procedures Surgical History Date Name Laterality Status Provider Name and Address Organization Details Recorded Time 12/27/19 24 Date of Last Mammogram completed [facility] 08/12/2024 17:04:01 09/14/19 24 Date of Last Pap Smear completed [facility] 09/14/2023 11:01:27 01/23/20 20 Date of Last Colonoscopy completed [facility] 08/12/2024 17:04:01 04/15/19 89 Caesarean Section completed [facility] 09/05/2022 16:56:55 06/26/19 87 Caesarean Section completed [facility] 09/05/2022 16:56:55 LEEP completed [facility] 09/05/2022 16:56:55 Colonoscopy completed [facility] 09/05/2022 16:56:55 cardiac radiofrequency ablation using ultrasound guidance completed RUPALI Carvajal [address], [place], [address], [facility] 09/05/2022 17:20:05 [facility] 10:59:46 Imaging Results Imaging Date Name Status LastModified by Organiz ation Details LastModified Time 12/27/2023 MAMMO, screening, digital, bilateral completed [facility] [address] [address], [place], [address], 01/03/2024 11:18:28 08/22/2024 MAMMO, diagnostic, digital, unilateral completed [facility] [address], [place], [address], 08/25/2024 17:50:27 Procedure Notes None recorded. Medical Equipment None Reported. Allergies Allergen ID Allergen Name Allergen Category Reaction Reaction Severity Criticality Documentation Date Start Date Code Code System Note Provider Name and Address Organization Details Recorded Time 52356 Substance with sulfonami de structure and antibacte rial mechanism of action (substanc e) medicatio n Not available Not available Not available 07/16/2020 17071 8003 SNOMED Comme nt: [facility]at [facility]; Not Available [facility] 0 14:20:57 Medications Name Sig Start Date Stop Date Status Note LastModified by Organization Details LastModified Time nystatin 1mu/oz, hydrocort isone 1%, zinc oxide 1% topical gel Apply to affected areas twice daily for 3 weeks then as needed. 08/12 completed Not Available Not Available Not Available Vitamin C 500 mg tablet 1 mg every day by oral route. active Not Available Not Available No t Available biotin 5 mg capsule 01/22 completed Prescrib ed Elsewher e: Yes Loca tion: [facility] odify By: chris rehman DateTime : 01/05/20 12 10:00:00 AM Not Available Not Available Not Available Monistat 7 2 % vaginal cream insert 1 applicat orful by vaginal route every day at bedtime 06/06 completed Prescrib ed Elsewher e: No [facility] By: ngoc rehman DateTime : 02/19/20 12 02:45:00 PM Not Available Not Available Not Available prednison e 20 mg tablet TAKE 1 TABLET BY MOUTH DAILY FOR 5 DAYS 08/12 completed Not Available Not Available Not Available Synthroid 100 mcg tablet 1 tablet every day by oral route. active Not Available Not Available No t Available phentermi ne 37.5 mg tablet TAKE 1 TABLET BY MOUTH EVERY DAY 09/05 completed Not Available Not Available Not Available norethind scott acetate 1 mg-ethiny l estradiol 5 mcg tablet 09/05 completed Not Available Not Available Not Available levothyro xine 25 mcg tablet take 1 tablet by oral route every day 08/31 completed Prescrib ed Elsewher e: Yes Loca tion: [facility] odify By: niesha babcock DateTime : 02/11/20 19 10:30:00 AM Not Available Not Available Not Available aspirin 500 mg tablet take 2 tablet by oral route every 6 hours as needed 01/31 completed Prescrib ed Elsewher e: Yes Loca tion: [facility] odify By: sreedhar babcock DateTime : 01/04/20 12 10:41:43 PM Not Available Not Available Not Available benzonata te 100 mg capsule TAKE 1 CAPSULE BY MOUTH THREE TIMES DAILY NEEDED 08/12 completed Not Available Not Available Not Available simvastat in 20 mg tablet active Not Available Not Available Not Available Cipro 500 mg tablet take 1 tablet by oral route every 12 hours 01/31 completed Prescrib ed Elsewher e: No Locat ion: [facility] odify By: sreedhar babcock DateTime : 01/26/20 15 10:00:00 AM Not Available Not Available Not Available lisinopri l 10 mg tablet 1 mg every day by oral route. active Not Available Not Available No t Available Calcium-6 00 600 mg (as calcium carbonate 1,500 mg) tablet 01/22 completed Prescrib ed Elsewher e: Yes Loca tion: [facility] odify By: chris rehman DateTime : 06/06/20 12 02:30:00 PM Not Available Not Available Not Available Ferrous Sulfate FC 325 mg tablet Take 1 tablet every day by oral route. 08/12 completed Not Available Not Available Not Available Zocor 40 mg tablet take 1 tablet by oral route every day in the evening 08/31 completed Prescrib ed Elsewher e: Yes Loca tion: [facility] odify By: arnaldo aguilar DateTime : 01/04/20 12 10:41:43 PM Not Available Not Available Not Available lisinopri l 2.5 mg tablet take 1 tablet by oral route every day 09/05 completed Prescrib ed Elsewher e: Yes Loca tion: [facility] odify By: juanita rehman DateTime : 01/05/20 12 10:00:00 AM Not Available Not Available Not Available ipratropi um bromide 21 mcg (0.03 %) nasal spray USE 2 SPRAYS IN EACH NOSTRIL THREE TIMES DAILY active Not Available Not Available No t Available amoxicill in 875 mg-potass ium clavulana te 125 mg tablet TAKE 1 TABLET BY MOUTH TWICE DAILY FOR 7 DAYS 08/12 completed Not Available Not Available Not Available Norethind scott/Ethi n Estradiol 0.5 mg-35 mcg tablet Take 1 tablet every day by oral route. 09/14 completed Not Available Not Available Not Available Prempro 0.45 mg-1.5 mg tablet TAKE 1 TABLET DAILY 08/31 completed Prescrib ed Elsewher e: No [facility] By: char Red ter DateTime : 03/25/20 08:43:48 AM Not Available Not Available Not Available ciproflox acin 0.3 %-dexamet hasone 0.1 % ear drops,josephine pension SHAKE LIQUID AND INSTILL 4 DROPS TO AFFECTED EAR TWICE DAILY FOR 7 DAYS 08/12 completed Not Available Not Available Not Available Prempro 0.3 mg-1.5 mg tablet take 1 tablet by oral route every day 05/17 completed Prescrib ed Elsewher e: No Locat ion: [facility] odify By: char rehman DateTime : 02/01/20 16 10:30:00 AM Not Available Not Available Not Available Fiber (psyllium husk) 0.52 gram capsule 01/25 completed Prescrib ed Elsewher e: Yes Loca tion: [facility] odify By: cmedical Encount er DateTime : 01/05/20 12 10:00:00 AM Not Available Not Available Not Available CoQ10 active Not Available Not Availa ble Not Available [place] 3 Fish Oil active Not Available Not Available Not Available meloxicam 7.5 mg/5 mL oral suspensio n take 5 millilit er by oral route every day 06/06 completed Prescrib ed Elsewher e: Yes Loca tion: [facility] odify By: ngoc rehman DateTime : 01/05/20 12 10:00:00 AM Not Available Not Available Not Available simvastat in (bulk) 09/05 completed Not Available Not Available Not Available Activella 0.5 mg-0.1 mg tablet take 1 tablet by oral route every day 01/14 completed Prescrib ed Elsewher e: No Locat ion: [facility] odify By: portia Junior ncounter DateTime : 01/15/20 12 02:00:00 PM Not Available Not Available Not Available Omnaris 50 mcg nasal spray spray 2 spray by intranas al route every day in each nostril 01/04 completed Prescrib ed Elsewher e: Yes Loca tion: [facility] odify By: juanita rehman DateTime : 01/04/20 12 10:41:43 PM Not Available Not Available Not Available B12 active Not Available Not Availa ble Not Available Lo Loestrin Fe 1 mg-10 mcg (24)/10 mcg (2) tablet TAKE 1 TABLET BY ORAL ROUTE EVERY DAY 01/31 completed Prescrib ed Elsewher e: No Locat ion: [facility] odify By: sreedhar Junior ncounter DateTime : 12/24/19 14 03:31:09 PM Not Available Not Available Not Available Fish Oil 120 mg-180 mg-500 mg capsule 01/22 completed Prescrib ed Elsewher e: Yes Loca tion: [facility] odify By: chris rehman DateTime : 01/04/20 12 10:41:43 PM Not Available Not Available Not Available Glucosami ne Chondroit in PLUS 10/01 completed Not Available Not Available Not Available [employer] COVID-19 Antigen Home Test kit 09/05 completed Not Available Not Available Not Available Paxlovid 300 mg (150 mg x 2)-100 mg tablets in a dose pack TAKE 2 NIRMATRE LVIR TABLETS AND 1 RITONAVI R TABLET TOGETHER BY MOUTH TWICE DAILY FOR 5 DAYS 08/12 completed Not Available Not Available Not Available Vitals Date Recorded Body height Body mass index (BMI) Body weight Systolic blood pressure Diastolic blood pressure Provider Name and Address Organization Details Last Updated DateTime 09/05/2022 168.91 cm 27.9 kg/m2 41145.1 g 136 mm[Hg] 89 mm[Hg] Martha Gasca [facility] 3 16:56:46 Date Recorded Body weight Systolic blood pressure Diastolic blood pressure Provider Name and Address Organization Details Last Updated DateTime 09/14/2023 73908.22 g 130 mm[Hg] 85 mm[Hg] Naty Boateng [facility] 09/14/2023 10:59:27 Date Recorded Body height Body mass index (BMI) Body weight Systolic blood pressure Diastolic blood pressure Provider Name and Address Organization Details Last Updated DateTime 08/12/2024 168.91 cm 28.2 kg/m2 29028.29 g 140 mm[Hg] 84 mm[Hg] Huong Isaacs [facility] 5 17:08:47 Date Recorded Body height Body mass index (BMI) Body weight Systolic blood pressure Diastolic blood pressure Systolic blood pressure Diastolic blood pressure Provider Name and Address Organization Details Last Updated DateTime 5 168.91 cm 27.8 kg/m2 02261.6 6 g 149 mm[Hg] 84 mm[Hg] 150 mm[Hg] 90 mm[Hg] ZOFIA Patel [facility] 5 17:13:37 Social History Question Answer Notes LastModified by Organizat ion Details LastModified Time Tobacco Smoking Status Never Smoker Martha Gasca [facility] 09/05/2022 17:01:35 Do You Have An Advance Directive? No [email or web address] Information n ot available 08/12/2024 What Is Your Level Of Alcohol Consumption? None Information not available 09/05/2022 Are You Blind Or Do You Have Difficulty Seeing? No Information n ot available 09/05/2022 What Is Your Level Of Caffeine Consumption? Occasional Information not available 09/14/2023 How Much Tobacco Do You Chew? None Information not available 09/14/2023 In The 14 Days Before Symptom Onset, Have You Had Close Contact With A Laboratory-confirm ed COVID-19 While That Case Was Ill? No Information n ot available 09/14/2023 In The 14 Days Before Symptom Onset, Have You Had Close Contact With A Person Who Is Under Investigation For COVID-19 While That Person Was Ill? No Information not available 09/14/2023 Have You Been To An Area Known To Be High Risk For COVID-19? No Information not available 09/14/2023 Are You Deaf Or Do You Have Serious Difficulty Hearing? No Information not available 09/05/2022 What Type Of Diet Are You Following? REGULAR Information n ot available 09/05/2022 What Is The Highest Grade Or Level Of School You Have Completed Or The Highest Degree You Have Received? 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 No Information not available 09/14/2023 Do You Use Protection During Sex? No Information not available 09/14/2023 Do You Use Your Seat Belt Or Car Seat Routinely? Yes Information not available 09/14/2023 Are You Sexually Active? Yes Information not available 09/14/2023 Do You Have Smoke And Carbon Monoxide Detectors In Your Home? Yes Information not available 09/14/2023 How Much Tobacco Do You Smoke? No Information not available 09/14/2023 Do You Feel Stressed (tense, Restless, Nervous, Or Anxious, Or Unable To Sleep At Night)? [id number] Information not available 09/14/2023 Do You Use Any Illicit Or Recreational Drugs? No Information not available 09/14/2023 Do You Use Sunscreen Routinely? Yes Information not available 09/14/2023 Have You Used IV Drugs? No Information not available 09/14/2023 Sex: Unknown Functional Status Question Answer Note LastModified by Organizat ion Details LastModified Time Do you have difficulty walking or climbing stairs? No Information not available 09/05/2022 Are you able to walk? YESWOREST Information not available 09/05/2022 Are you able to care for yourself? Yes Information not available 09/05/2022 Do you have difficulty dressing or bathing? No Information not available 09/05/2022 What is your exercise level? Moderate Information not available 09/14/2023 Mental Status None recorded. Family History Relationship Description Onset Age of this Age Resolved Age Notes LastModified by Organization Details LastModified Time Paternal Grandmother Malignant neoplastic disease [email or web address] Not available 2024 17:04:00 Mother Disorder of thyroid gland [email or web address] Not available 2024 17:04:00 Mother Hypertensive disorder [email or web address] Not available 2024 17:04:00 Daughter Disorder of thyroid gland [email or web address] Not available 2024 17:04:00 Daughter Anxiety disorder [email or web address] Not available 2024 17:04:00 Sister Disorder of thyroid gland [email or web address] Not available 2024 17:04:00 Sister Hypertensive disorder [email or web address] Not available 2024 17:04:00 Father Malignant neoplastic disease [email or web address] Not available 2024 17:04:00 Father Hypertensive disorder [email or web address] Not available 2024 17:04:00 Notes:Father: Parkinson's di sease, Hypertension Maternal grandfather: Cancer, lung Mother: Thyroid disease, Hypertension Paternal grandfather: Stroke Paternal grandmother: Cancer, lung Sister: Thyroid disease Medical History Condition Response Allergies (Food, seasonal, environmental ) N Other Y Breast Cancer N Drug/Latex Allergies/Reactions N Blood Transfusion N Dermatologic Disorders N Lung Disease N Defects or Inherited Disease N Breast Problem N Gestational Diabetes N Hematologic disorders Y Anesthesia Complications N History of STI N Deep Vein Thrombosis N Polycystic ovary syndrome N Anxiety Disorder N Autoimmune disease N Arthritis N Infertility N Polyps N Acid Reflux (GERD) N History of abnormal pap N Cancer N Stroke N Varicosities N Neurologic/Epilepsy N Endometriosis N High Cholesterol Y Headaches N Fibromyalgia N Kidney Disease N Heart Problems Y Kidney or Bladder Problems N Thyroid Problems Y GI Problems N Eating Disorder N Anemia N Art (IVF or FET) N Psychiatric Illness N Ovarian Cancer N Diabetes N Pulmonary (TB, Asthma) N Hepatitis/Liver Disease N No Past Medical History N Eczema N Urinary Tract Infection N Abuse/Domestic Violence N Asthma N Trauma/Violence N Depression/ depression N Heart Disease N Pre-Eclampsia N Hypertension Y Osteoporosis N Thrombophilias N Gynecological History Statement/Question Response Abnormal Pap Y Date of Last Mammogram 12/27/2023 On BCP's at Conception? N N STIs/STDs N HPV Vaccine N Current Control Method Menopause Age at First Child 26 Date of Last Colonoscopy 01/23/2020 Sexually Active? Y Date of DEXA bone scan 06/16/2022 Age of first menstrual cycle 14 Date of Last Pap Smear 09/14/2023 Sexual Problems? N LMP Unknown N Obstetrics History GPAL:G 2 P 0 0 0 2 Type Value Living 2 Total 2 Past Encounters Encounter ID Performer Location Encounter Start Date Encounter Closed Date Diagnosis/Indication Diagnosis SNOMED-CT Code Diagnosis ICD10 Code Diagnosis Note [id number] RUPALI Carvajal [facility] [address] [address] 09/05/2022 16:41:43 09/05/2022 17:37:04 Gynecologic examination 56792023 Z01.419 Take Calcium with Vitamin D 12-1500mg daily. Do monthly self breast exams. It is advised to get annual flu shot in the fall and she could obtain at [facility] or [facility] clinic. If you haven't received the Tdap vaccine in the last 10 years you should obtain one as well. Have mammogram yearly, bone density every 2-3 years and colonoscop y every 5-10 years depending on findings and history. Engage in daily exercise of low impact aerobic exercise 45-60 minutes 4-5 times weekly. Avoid tobacco and illicit drugs as well as using moderation with alcohol intake less than 1-2 8 oz beverages daily. This lifestyle behavior pattern will lead to less health conditions and longer life span. If BMI greater than 25 weight watchers or dietary consult advised. Questions have been answered. Patient appears to understand instructio ns, but if you have any further questions call or respond to this email WWEPostmen opausalOn HRT. No hot flashes or night sweats. Desires to discontinu e HRT use. We discussed this, she will notify the office if hot flashes/ni ght sweats return.Hx of abnormal paps, LEEP 25-30 years ago. Last abnormal pap 2013, HPV (+).Last pap 2019, normal per patientPap done todaySTI testing declinedMa mmogram UTD, due 3Dex a UTD, 05/2022 - normal per patientCol onoscopy UTD - last 3-4 years ago, told to repeat in 10 yearsUTD with PCPRTC in 1 year or sooner if needed [id number] RUPALI Carvajal [place] [address] [address] 09/14/2023 10:52:09 09/14/2023 11:51:42 Gynecologic examination [id number] Z01.419 WWEpap updateddec lined STI screeningm ammogram order givencolon oscopy UTDdexa due 2024routin e labs UTDRTC in 1 yr or sooner if needed Take Calcium with Vitamin D daily. Do monthly self breast exams. It is advised to get annual flu shot in the fall and she could obtain at [facility] or [facility] clinic. If you haven't received the Tdap vaccine in the last 10 years you should obtain one as well. Have mammogram yearly, bone density every 2-3 years and colonoscop y every 5-10 years depending on findings and history. Engage in daily exercise of low impact aerobic exercise 45-60 minutes 4-5 times weekly. Avoid tobacco and illicit drugs as well as using moderation with alcohol intake less than 1-2 8 oz beverages daily. This lifestyle behavior pattern will lead to less health conditions and longer life span. If BMI greater than 25 dietary consult advised. Questions have been answered. Patient appears to understand instructio ns, but if you have any further questions call or respond to this email veg based moisturize r routine discussedd iscussed vaginal estrogen, r/b/a reviewed - declined at this time Screening for malignant neoplasm of breast [id number] Z12.39 [id number] SAGAR CAMARA NP [facility] [address] [address] 08/12/2024 17:01:42 08/12/2024 17:30:17 Mass of right breast [id number] N63.10 We discussed her breast exam findings and pt is counseled. Questions answered.I maging: Diagnostic mammogram of right breast with u/s ordered to further evaluate right breast mass. Order given, pt to call and schedule mammogram. Patient to continue to perform self-breas t exams and report any changes.FU for WWE on/after 09/14/24. [id number] RUPALI Carvajal [place] [address] [address] 10/01/2024 16:58:35 10/02/2024 11:16:05 Gynecologic examination [id number] Z01.419 WWEpostmen opausalPap - done today per pt preference STI screen - declinedMa mmogram - UTDColon cancer screening - UTD/PCPDex a - UTD/PCPRou chon labs - UTD/PCPBP precaution s discussedR TC in 1 yr or sooner if needed Do monthly self breast exams.It is advised to get annual flu shot in the fall and she could obtain at local pharmacy. If you haven't received the Tdap vaccine in the last 10 years you should obtain one as well.Have mammogram yearly, bone density every 2-3 years and stay up to date on colon cancer screening. Engage in regular exercise. Avoid tobacco and illicit drugs. This lifestyle behavior pattern will lead to less health conditions and longer life span. If BMI greater than 25 dietary consult advised.Qu estions have been answered. Health Concerns Section Related Observation LastModified by Organization Detai ls LastModified Time None Recorded Concern Status LastModified by Organization Details LastModified Time None Recorded Advance Directives Directive N: Payers Encounter Date Sequence Insurance Name Policy Number Policy [place] Covered Member ID [place] Member ID Guarantor Name 09/05/2022 1 [facility] [id number] [facility] [id number] Sahara Cancino 09/14/2023 1 [facility] [id number] [facility] [id number] Sahara Cancino 08/12/2024 1 [facility] [id number] Sahara Cancino [id number] Sahara Mackenzieconstantino 10/01/2024 1 [facility] [id number] Sahara Cancino [id number] Sahara Cancino Notes Date Note Type Note Provider Name and Address Organization Details Recorded Time 3 text/html Annual Manager Field Sales Post-MenopausalReporte d bypatient.Menopausal Symptoms:no menopausal symptoms; normal vaginal lubrication Vaginal Bleeding:history of menopause having occurred; no history of post menopausal bleeding Urinary Symptoms:no hematuria; no incontinence; no nocturia; no urinary frequency Vulva:no genital lesion; no vulvar atrophy Vagina:normal vaginal discharge; no vaginal atrophy Breast:no breast lump; no nipple discharge; no breast pain Sexual Complaints:no sexual complaints Psychological Symptoms:no depression; no anxiety Preventive Measures:encourage regular mammograms starting age 40; encourage self breast examination; encourage regular exercise; encourage no tobacco use; mammogram performed within the past year; history of recent colonoscopy RUPALI Carvajal [address], [place], [address], [facility] 09/05/2022 17:34:42 4 text/html Annual Manager Field Sales Post-MenopausalReporte d bypatient.Menopausal Symptoms:no menopausal symptoms; normal vaginal lubrication Vaginal Bleeding:history of menopause having occurred; no history of post menopausal bleeding Urinary Symptoms:no hematuria; no incontinence; no nocturia; no urinary frequency Vulva:no genital lesion; no vulvar atrophy Vagina:normal vaginal discharge; no vaginal atrophy Breast:no breast lump; no nipple discharge; no breast pain Sexual Complaints:no sexual complaints Psychological Symptoms:no depression; no anxiety Preventive Measures:encourage regular mammograms starting age 40; encourage self breast examination; encourage regular exercise; encourage no tobacco use; needs to schedule mammogram; history of recent colonoscopy; needs to schedule bone densityNotes:h/o LEEP 30 years agolast abnormal pap 2014pap done 08/2022 normalmammogram 1 yr agocolonoscopy UTDdexa done 2021 - normal per pt has some vaginal dryness [address], [place], [address], [facility] 09/14/2023 11:50:22 5 text/html Patient here with c/o lump under right breast since Sunday. Patient states that the size has remained unchanged.Denies skin changes, breast pain, or nipple discharge. Reports tenderness upon palpation of breast lump.Denies family or personal history of breast cancer.Last mammogram: 12/27/23 [facility] 1Patient reports applying a combo topical cream of lanolin/low-dose steroid under bilateral breasts and belt-line that was prescribed by plastic welder for skin irritation r/t friction caused by bras/underwear. SAGAR CAMARA NP [address], [place], [address], [facility] 08/12/2024 17:29:29 5 text/html Annual Manager Field Sales Post-MenopausalReporte d bypatient.Menopausal Symptoms:no menopausal symptoms; normal vaginal lubrication Vaginal Bleeding:history of menopause having occurred; no history of post menopausal bleeding Urinary Symptoms:no hematuria; no incontinence; no nocturia; no urinary frequency Vulva:no genital lesion; no vulvar atrophy Vagina:normal vaginal discharge; no vaginal atrophy Breast:no breast lump; no nipple discharge; no breast pain Sexual Complaints:no sexual complaints Psychological Symptoms:no depression; no anxiety Preventive Measures:encourage regular mammograms starting age 40; encourage self breast examination; encourage regular exercise; encourage no tobacco use; mammogram performed within the past yearNotes:64yo wwepostmenopausallast pap 09/14/2023 : nilm, HPV (-)h/o abnormal pap last 2013dexa UTD/PCPmammogram UTDcolonoscopy UTD/PCP RUPALI Carvajal [address], [place], [address], [facility] 10/02/2024 11:01:46 OBGyn Episode Ob Episode Information Episode Created Date Number of Fetuses Patient Bloodtype Patient rh Status Prepregnancy Weight lbs Domestic Partner Domestic Partner Phone Father Name Plaster Maker Status 09/05/19 23 1 CLOSED Fetus Data First Name Last Name Admitted to NICU Weight (g) Sex Living Outcome Pediatric Complications Fetus ID Race Codes Race Delivery Type 1502.29 [id number] F Prematur e [id number] Primary Carlo Calculation Initial Carlo Date Initial Exam Date Initial Exam Provider Initial Ultrasound Date Last Menstrual Period Date Ultra Sound Weeks Gestation 0 Eighteen To Twenty Week Carlo Update Ultra Sound Date Fundal Height At Umbil Quickening Date Ultra Sound Latest Weeks Gestation Final Carlo Confirmed By Final Carlo Confirmed Date Final Carlo Date Ultra Sound Latest Days Gestation 0 0 Menstrual History Last Menstrual Date Menses Monthly On Bcp Conception Prior Menses Frequency Hcg Plus Date Menarche Onset Age Delivery Information Delivery Date Delivery Type Labor Anesthesia Weeks Gestation Incision Type Labor Labor Length Hrs Delivered By Post Complications Tubal Sterilization Discharge Date Comments 7 28 Discharge Information Feeding Method Contraceptive Method Maternal HG B and HCT Levels Ob Episode Information Episode Created Date Number of Fetuses Patient Bloodtype Patient rh Status Prepregnancy Weight lbs Domestic Partner Domestic Partner Phone Father Name Plaster Maker Status 09/05/19 23 1 CLOSED Fetus Data First Name Last Name Admitted to NICU Weight (g) Sex Living Outcome Pediatric Complications Fetus ID Race Codes Race Delivery Type 3798.83 3 F Full Term [id number] Repeat Carlo Calculation Initial Carlo Date Initial Exam Date Initial Exam Provider Initial Ultrasound Date Last Menstrual Period Date Ultra Sound Weeks Gestation 0 Eighteen To Twenty Week Carlo Update Ultra Sound Date Fundal Height At Umbil Quickening Date Ultra Sound Latest Weeks Gestation Final Carlo Confirmed By Final Carlo Confirmed Date Final Carlo Date Ultra Sound Latest Days Gestation 0 0 Menstrual History Last Menstrual Date Menses Monthly On Bcp Conception Prior Menses Frequency Hcg Plus Date Menarche Onset Age Delivery Information Delivery Date Delivery Type Labor Anesthesia Weeks Gestation Incision Type Labor Labor Length Hrs Delivered By Post Complications Tubal Sterilization Discharge Date Comments 9 37 Discharge Information Feeding Method Contraceptive Method Maternal HG B and HCT Levels
--- OUTSIDE RECORDS SUMMARY | 2024-10-28 17:06 | XMS_ITS | Clinical Summary ---
Author Organization [facility] Address [address] [place] [address] Care Team Providers Care Bookkeeper Receptionist Name Role Phone Nia Pickard Primary Care Provider + [phone] Allergies Active Allergy Reactions Criticality Noted Date Comments Sulfamethoxazole-Trimethoprim Itching 2019 Medications lisinopril 10 MG tablet Take 10 mg by mouth daily. Active simvastatin 20 MG tablet Take 20 mg by mouth nightly at bedtime. Active levothyroxine 75 MCG tablet Take 75 mcg by mouth every morning. Active Ascorbic Acid (VITAMIN C) 100 MG tablet Take 100 mg by mouth daily. Active Multiple Vitamin (ONE-A-DAY 55 PLUS OR) Take by mouth daily. Active Boswellia-Gluco samine-Vit D (OSTEO BI-FLEX ONE PER DAY OR) Take by mouth daily. Active Cyanocobalamin (B-12) 250 MCG Tab Take 500 mg by mouth daily. Active PREMPRO LOW DOSE 0.45-1.5 MG tabletIndicatio ns:Menopause TAKE 1 TABLET DAILY 84 tablet 08/11/2020 Active Active Problems No known active problems Immunizations Name Administration Dates Next Due MODERNA COVID-19 (12+) MRNA, LNP-S, PF, 100 MCG/ 0.5 ML DOSE 05/31/2021,10/09/2020,09/11/2020 MODERNA COVID-19 (SUPERVISOR LIQUEFACTION CATRACHITA GYPSY), MRNA, LNP-S, PF, 50 MCG/ 0.25 ML DOSE 11/07/2021 Tdap (Historical Only-select from [employer] glass) 02/17/2020 Family History Medical History Relation Comments Cancer Father Hypertension Mother hypothyroidism Mother Relation Status Comments Father Mother Alive Social History Tobacco Use Types Packs/Day Years Used Date Smoking Tobacco: Never Smokeless Tobacco: Never Alcohol Use Standard Drinks/Week Comments Yes 0 (1 standard drink = 0.6 oz pur e alcohol) socially PHQ-2 Answer Date Recorded PHQ-2 Score - If the patient scores above 3, please move on to questions 3-9 0 02/17/2020 Comments Unknown Sex and Gender Information Value Date Recorded Sex Assigned at Not on file Legal Sex Female 4:16 PM CDT Gender Identity Not on file Sexual Orientation Not on file Last Filed Vital Signs Vital Sign Reading Time Taken Comments Blood Pressure 120/84 02/17/2020 9:57 AM CDT Pulse 84 02/17/2020 9:57 AM CDT Temperature 35.9 C (96.7 F) 02/17/2020 9:57 AM CDT Respiratory Rate 18 02/17/2020 9:57 AM CDT Oxygen Saturation 99% 02/17/2020 9:57 AM CDT Inhaled Oxygen Concentration - - Weight 84.8 kg (187 lb) 02/17/2020 9:57 AM CDT Height 172.7 cm (5' 8 ) 02/17/2020 9:57 AM CDT Body Mass Index 28.43 02/17/2020 9:57 AM CDT Plan of Treatment Health Maintenance Due Date Last Done Comments Colorectal Cancer Screening Colonoscopy (10 Years) 1961 Hepatitis C 1979 Mammogram Screening 02/08/2019 02/08/2018, 02/01/2018, 01/16/2017, Additional history exists Annual Physical 02/16/2021 02/17/2020 Cervical Cancer Screening Pap with HPV Testing (Age 30 to 64) Every 5 Years 02/06/2022 02/06/2017, 02/01/2016, 01/25/2015, Additional history exists Cervical Cancer Screening Pap Smear (Age 30 to 64) Every 3 Years 02/16/2023 02/17/2020, 02/10/2019, 02/07/2018 Cervical Cancer Screening with HPV 02/16/2023 COVID-19 Vaccine ( season) 2024 11/07/2021, 05/31/2021, 10/09/2020, Additional history exists DTaP, Tdap and Td Vaccines (3 - Td or Tdap) 02/16/2030 02/17/2020, 04/19/2017 RSV Immunization or 60+ Years (1 - 1-dose 75+ series) 2036 Zoster Vaccines Completed 06/06/2022, 02/01/2022 Meningococcal B Vaccine Aged Out No l onger eligible based on patient's age to complete this topic Meningococcal Vaccine Aged Out No gladys kendrick eligible based on patient's age to complete this topic Pneumococcal Vaccine: Pediatrics (0 to 5 Years) and At-Risk Patients (6 to 64 Years) Aged Out No longer eligible based on patient's age to complete this topic RSV Immunizations Under 20 Months Aged Out No longer eligible based on patient's age to complete this topic Procedures Procedure Name Priority Date/Time Associated Diagnosis Comments CYTOPATH CERV/VAG THIN LAYER Routine 02/17/2020 11:18 AM CDT Need for diphtheria-tetanus- pertussis (Tdap) vaccine MAMMOGRAM GENERIC (SCAN ORDER) 02/08/2018 OUTSIDE CYTOPATH CERV/VAG INTERPRET (PAP) 02/06/2017 from Last 3 Months or Most Recently Relevant to Health Maintenance Results * Cytopath Cerv/Vag Thin Layer (02/17/2020 11:18 AM CDT) CLINICAL INFORMATION: Information not provided [place], [place] Clinical Information: INFORMATION NOT PROVIDED [place], [place] Date of Last Pap INFORMATION NOT PROVIDED [place], [place] Previous Biopsy? INFORMATION NOT PROVIDED [place], [place] SOURCE (QST) Information not provided [place], [place] STATEMENT OF ADEQUACY: [place], [place] Comment: Satisfactory for evaluation. Endocervical/transformation zone component present. PAP INTERPRETATION/RESU LTS Negative for intraepithelial lesion or malignancy. [place], [place] CONCRETE JOURNEYMAN E[place], [place] Comment: YQ, CT(ASCP) CT screening location: [place] [address] [address] [address] COMMENT: [place], [place] Comment: EXPLANATORY NOTE: The Pap is a screening test for cervical cancer. It is not a diagnostic test and is subject to false negative and false positive results. It is most reliable when a satisfactory sample, regularly obtained, is submitted with relevant clinical findings and history, and when the Pap result is evaluated along with historic and current clinical information. 02/17/2020 11:1 8 AM CDT 02/18/2020 3:59 AM CDT Narrative Resulting Agency Comment Performing Organization Information: Site ID: Name[facility] Address: [facility] [place] [address] Director: Nany Subramanian us Nia BEASLEY PATHOLOGY/CYTOLOGY ORDERABLE S Final Result [facility] [address], [place] * MAMMOGRAM GENERIC (02/08/2018) Anatomical Region Laterality Modality Other 02/08/2018 Narrative 02/08/2018 Ordered by an unspecified provider. us Documents Scanned SCANNING Final Result * OUTSIDE CYTOPATH VAG/CERV PAP WITH HPV (02/06/2017) 02/06/2017 Narrative 02/06/2017 Ordered by an unspecified provider. us Documents Scanned SCANNING Final Result from Last 3 Months or Most Recently Relevant to Health Maintenance Insurance [facility] Care Teams Bookkeeper Receptionist Relationship Specialty [place] [address] [place] [address] PCP - General PHYSICIAN PICKING BELT OPERATOR 02/17/20
--- OUTSIDE RECORDS SUMMARY | 2024-10-28 17:06 | XMS_ITS | Data Portability ---
Author Organization [facility], Main Office Address [address] [place] [address] Assessment No assessment recorded. Plan of Treatment Reminders Order Date Submit Date Provider Last Modified By Organization Details Last Modified Time Details Appointments None recorded. Lab CBC w/ auto diff 2023 024 [email or web address] [facility] (Lab), [address] [place], [address], 4 08:57:03 ferritin, serum or plasma 2023 024 [email or web address] 2 [facility] (Lab), [address] [place], [address], 4 08:57:03 lipid panel, serum 2023 024 [email or web address] 2 [facility] (Lab), [address] [place], [address], 4 08:57:02 CMP, serum or plasma 2023 024 [email or web address] 2 [facility] (Lab), [address] [place], [address], 4 08:57:02 CK (creatine kinase), total, serum 2023 024 [email or web address] 2 [facility] (Lab), [address] [place], [address], 4 08:57:03 TSH, serum or plasma 2023 024 [email or web address] 2 [facility] (Lab), [address] [place], [address], 4 08:57:02 T4, free, serum 2023 024 [email or web address] 2 [facility] (Lab), [address] [place], [address], 4 08:57:02 Referral None recorded. Procedures None recorded. Surgeries None recorded. Imaging None recorded. Medication Orders Synthroid 100 mcg tablet 2023 024 [facility] [address] [facility], [address] [facility], [place], [address], 4 16:37:50 Patient TargetsNo targets recorded. Patient InstructionsNo instructions recorded. Reason for Referral None Reported. Results Created Date Observation Date Name Description Value Unit Range Abnormal Flag Note LastModifiedBy Organization Detail LastModifiedTime 02/26/20 21 02/26/2021 HEPAT IC FUNCT ION PANEL protein, total 6.7 g/dL 6.1-8. 1 normal Not Available [facility] [address] [address] [place], [address], 02/26/2021 04:14:53 02/26/2002/26/2021 HEPAT IC FUNCT ION PANEL albumin 4.3 g/dL 3.6-5. 1 normal Not Available [facility] [address] [address] [place], [address], 02/26/2021 04:14:53 02/26/20 21 02/26/2021 HEPAT IC FUNCT ION PANEL globulin 2.4 g/dL_ (calc ) 1.9-3. 7 normal Not Available [facility] [address] [address] [place], [address], 02/26/2021 04:14:53 02/26/20 21 02/26/2021 HEPAT IC FUNCT ION PANEL albumin/glob ulin ratio 1.8 (calc ) 1.0-2. 5 normal Not Available [address] [address] [place], [address], 02/26/2021 04:14:53 02/26/20 21 02/26/2021 HEPAT IC FUNCT ION PANEL bilirubin, total 0.8 mg/dL 0.2-1. 2 normal Not Available [address] [address] [place], [address], 02/26/2021 04:14:53 02/26/20 21 02/26/2021 HEPAT IC FUNCT ION PANEL bilirubin, direct 0.1 mg/dL < or = 0.2 normal Not Available [address] [address] [place], [address], 02/26/2021 04:14:53 02/26/20 21 02/26/2021 HEPAT IC FUNCT ION PANEL bilirubin, indirect 0.7 mg/dL _(john c) 0.2-1. 2 normal Not Available [address] [address] [place], [address], 02/26/2021 04:14:53 02/26/20 21 02/26/2021 HEPAT IC FUNCT ION PANEL alkaline phosphatase 69 U/L 37-153 normal Not Available [facility] [employer] [facility] [address] [address] [place], [address], 02/26/2021 04:14:53 02/26/20 21 02/26/2021 HEPAT IC FUNCT ION PANEL AST 14 U/L 10-35 normal Not Available [address], [address], 02/26/2021 04:14:53 02/26/20 21 02/26/2021 HEPAT IC FUNCT ION PANEL ALT 10 U/L 6-29 normal Not Available [address] [address] [place], [address], 02/26/2021 04:14:53 02/26/20 21 02/26/2021 BASIC METAB OLIC PANEL creatinine 0.84 mg/dL 0.50-1 .05 normal For patie nts >49 years of age, the refer ence limit for Creat inine is appro jadet juany 13% highe r for peopl e ident ified as Afric an-Am rogelio n. Not Available [address], [address], 02/26/2021 04:14:53 02/26/20 21 02/26/2021 BASIC METAB OLIC PANEL glucose 88 mg/dL 65-99 normal Fasti ng refer ence inter yulia Not Available [address], [address], 02/26/2021 04:14:53 02/26/20 21 02/26/2021 BASIC METAB OLIC PANEL urea nitrogen (BUN) 15 mg/dL 7-25 normal Not Available [address], [address], 02/26/2021 04:14:53 02/26/20 21 02/26/2021 BASIC METAB OLIC PANEL eGFR non-afr. australian 76 mL/mi n/1.7 3m2 > or = 60 normal Not Available [address], [address], 02/26/2021 04:14:53 02/26/20 21 02/26/2021 BASIC METAB OLIC PANEL eGFR 88 mL/mi n/1.7 3m2 > or = 60 normal Not Available [facility] [address], [address], 02/26/2021 04:14:53 02/26/20 21 02/26/2021 BASIC METAB OLIC PANEL BUN/creatini ne ratio not applic able (calc ) 6-22 Not Available [address], [address], 02/26/2021 04:14:53 02/26/20 21 02/26/2021 BASIC METAB OLIC PANEL sodium 139 mmol/ L 135-14 6 normal Not Available [address], [address], 02/26/2021 04:14:53 02/26/20 21 02/26/2021 BASIC METAB OLIC PANEL potassium 4.1 mmol/ L 3.5-5. 3 normal Not Available [address], [address], 02/26/2021 04:14:53 02/26/20 21 02/26/2021 BASIC METAB OLIC PANEL chloride 106 mmol/ L 98-110 normal Not Available [address], [address], 02/26/2021 04:14:53 02/26/20 21 02/26/2021 BASIC METAB OLIC PANEL carbon dioxide 25 mmol/ L 20-32 normal Not Available [address], [address], 02/26/2021 04:14:53 02/26/20 21 02/26/2021 BASIC METAB OLIC PANEL calcium 9.0 mg/dL 8.6-10 .4 normal Not Available [address], [address], 02/26/2021 04:14:53 02/26/20 21 02/26/2021 LIPID PANEL , STAND [place]WARD HDL cholesterol 37 mg/dL > or = 50 low Not Available [address], [address], 02/26/2021 04:14:52 02/26/20 21 02/26/2021 LIPID PANEL , ST[facility] [place] cholesterol, total 156 mg/dL <200 normal Not Available [address], [address], 02/26/2021 04:14:52 02/26/20 21 02/26/2021 LIPID PANEL , [place] [place]WARD triglyceride s 144 mg/dL <150 normal Not Available [address], [address], 02/26/2021 04:14:52 02/26/20 21 02/26/2021 LIPID PANEL , [place] [place] LDL-choleste rol 95 mg/dL _(john c) normal Refer ence range : <100 Joe able range <100 mg/dL for prima ry preve ntion ; <70 mg/dL for patie nts with CHD or diabe tic patie nts with > or = 2 CHD risk facto rs. LDL-C is now calcu lated using the Lay n-Hop kins calcu latjad n, which is a valid ated novel metho d provi ding carole r accur acy than the Fried shahriar equat ion in the estim ation of LDL-C . Lay patterson SS et al. ARTIE. 2013; 310(1 9): 2061- 2068 (http ://ed ucati on.Qu estDi OnMyBlock. com/f aq/FA Q164) Not Available [address], [address], 02/26/2021 04:14:52 02/26/20 21 02/26/2021 LIPID PANEL , ST[place]WARD chol/HDLC ratio 4.2 (calc ) <5.0 normal Not Available [address] [place], [address], 02/26/2021 04:14:52 02/26/20 21 02/26/2021 LIPID PANEL , [place] [place] non HDL cholesterol 119 mg/dL _(john c) <130 normal For patie nts with diabe mragarita plus 1 major ASCVD risk facto r, treat ing to a non-H DL-C goal of <100 mg/dL (LDL- C of <70 mg/dL ) is consi dered a thera peuti c optio n. Not Available [facility] [address], [address], 02/26/2021 04:14:52 02/26/20 21 02/26/2021 IRON, TIBC AND MANAN TIN PANEL iron, total 193 mcg/d L 45-160 high Not Available [address], [address], 02/26/2021 04:14:52 02/26/20 21 02/26/2021 IRON, TIBC AND MANAN TIN PANEL iron binding capacity 432 mcg/d L_(ca lc) 250-45 0 normal Not Available [address], [address], 02/26/2021 04:14:52 02/26/20 21 02/26/2021 IRON, TIBC AND MANAN TIN PANEL % saturation 45 %_(ca lc) 16-45 normal Not Available [address], [address], 02/26/2021 04:14:52 02/26/20 21 02/26/2021 IRON, TIBC AND MANAN TIN PANEL ferritin 16 NG/mL 16-232 normal Not Available [address], [address], 02/26/2021 04:14:52 02/26/2002/26/2021 TSH TSH 2.13 mIU/L 0.40-4 .50 normal Not Available [address], [address], 02/26/2021 04:14:55 02/26/2002/26/2021 CBC (INCL UDES DIFF/ PLT) white blood cell count 6.6 thous and/u L 3.8-10 .8 normal Not Available [address], [address], 02/26/2021 04:14:55 02/26/20 21 02/26/2021 CBC (INCL UDES DIFF/ PLT) red blood cell count 5.01 ernestine on/uL 3.80-5 .10 normal Not Available [address], [address], 02/26/2021 04:14:55 02/26/20 21 02/26/2021 CBC (INCL UDES DIFF/ PLT) hemoglobin 13.9 g/dL 11.7-1 5.5 normal Not Available [address], [address], 02/26/2021 04:14:55 02/26/2002/26/2021 CBC (INCL UDES DIFF/ PLT) hematocrit 44.6 % 35.0-4 5.0 normal Not Available [address], [address], 02/26/2021 04:14:55 02/26/20 21 02/26/2021 CBC (INCL UDES DIFF/ PLT) MCV 89.0 fL 80.0-1 00.0 normal Not Available [address], [address], 02/26/2021 04:14:55 02/26/20 21 02/26/2021 CBC (INCL UDES DIFF/ PLT) MCH 27.7 pg 27.0-3 3.0 normal Not Available [address], [address], 02/26/2021 04:14:55 02/26/2002/26/2021 CBC (INCL UDES DIFF/ PLT) MCHC 31.2 g/dL 32.0-3 6.0 low Not Available [address], [address], 02/26/2021 04:14:55 02/26/20 21 02/26/2021 CBC (INCL UDES DIFF/ PLT) RDW 13.7 % 11.0-1 5.0 normal Not Available [facility] [place] [address] [address], [place], [address], 02/26/2021 04:14:55 02/26/20 21 02/26/2021 CBC (INCL UDES DIFF/ PLT) platelet count 250 thous and/u L 140-40 0 normal Not Available [address], [address], 02/26/2021 04:14:55 02/26/20 21 02/26/2021 CBC (INCL UDES DIFF/ PLT) MPV 11.5 fL 7.5-12 .5 normal Not Available [address], [address], 02/26/2021 04:14:55 02/26/20 21 02/26/2021 CBC (INCL UDES DIFF/ PLT) absolute neutrophils 4019 cells /uL 1500-7 800 normal Not Available [address], [address], 02/26/2021 04:14:55 02/26/20 21 02/26/2021 CBC (INCL UDES DIFF/ PLT) absolute lymphocytes 1736 cells /uL 850-39 00 normal Not Available [address], [address], 02/26/2021 04:14:55 02/26/20 21 02/26/2021 CBC (INCL UDES DIFF/ PLT) absolute monocytes 653 cells /uL 200-95 0 normal Not Available [address], [address], 02/26/2021 04:14:55 02/26/20 21 02/26/2021 CBC (INCL UDES DIFF/ PLT) lymphocytes 26.3 % normal Not Available [address], [address], 02/26/2021 04:14:55 02/26/20 21 02/26/2021 CBC (INCL UDES DIFF/ PLT) absolute eosinophils 132 cells /uL 15-500 normal Not Available [address], [address], 02/26/2021 04:14:55 02/26/20 21 02/26/2021 CBC (INCL UDES DIFF/ PLT) absolute basophils 59 cells /uL 0-200 normal Not Available [address], [address], 02/26/2021 04:14:55 02/26/20 21 02/26/2021 CBC (INCL UDES DIFF/ PLT) neutrophils 60.9 % normal Not Available [address], [address], 02/26/2021 04:14:55 02/26/20 21 02/26/2021 CBC (INCL UDES DIFF/ PLT) monocytes 9.9 % normal Not Available [address], [address], 02/26/2021 04:14:55 02/26/2002/26/2021 CBC (INCL UDES DIFF/ PLT) eosinophils 2.0 % normal Not Available [address], [address], 02/26/2021 04:14:55 02/26/2002/26/2021 CBC (INCL UDES DIFF/ PLT) basophils 0.9 % normal Not Available [address], [address], 02/26/2021 04:14:55 09/17/19 22 09/18/2021 TSH W/REF HERLINDA TO FT4 TSH w/reflex to FT4 1.76 mIU/L 0.40-4 .50 normal Not Available [address], [address], 09/18/2021 08:52:11 03/03/20 22 03/04/2022 TSH TSH 2.98 mIU/L 0.40-4 .50 normal Not Available [facility] [address], [address], 03/04/2022 02:27:37 03/03/20 22 03/04/2022 CBC (INCL UDES DIFF/ PLT) white blood cell count 5.5 thous and/u L 3.8-10 .8 normal Not Available [facility] [address], [address], 03/04/2022 02:27:36 03/03/20 22 03/04/2022 CBC (INCL UDES DIFF/ PLT) red blood cell count 4.32 ernestine on/uL 3.80-5 .10 normal Not Available [address], [address], 03/04/2022 02:27:36 03/03/20 22 03/04/2022 CBC (INCL UDES DIFF/ PLT) hemoglobin 11.2 g/dL 11.7-1 5.5 low Not Available [facility] [address], [address], 03/04/2022 02:27:36 03/03/20 22 03/04/2022 CBC (INCL UDES DIFF/ PLT) hematocrit 36.8 % 35.0-4 5.0 normal Not Available [facility] [address], [address], 03/04/2022 02:27:36 03/03/20 22 03/04/2022 CBC (INCL UDES DIFF/ PLT) MCV 85.2 fL 80.0-1 00.0 normal Not Available [facility] [address], [address], 03/04/2022 02:27:36 03/03/20 22 03/04/2022 CBC (INCL UDES DIFF/ PLT) MCH 25.9 pg 27.0-3 3.0 low Not Available [facility] [place] [address] [address], [place], [address], 03/04/2022 02:27:36 03/03/20 22 03/04/2022 CBC (INCL UDES DIFF/ PLT) MCHC 30.4 g/dL 32.0-3 6.0 low Not Available [address], [address], 03/04/2022 02:27:36 03/03/20 22 03/04/2022 CBC (INCL UDES DIFF/ PLT) RDW 15.1 % 11.0-1 5.0 high Not Available [address], [address], 03/04/2022 02:27:36 03/03/20 22 03/04/2022 CBC (INCL UDES DIFF/ PLT) platelet count 295 thous and/u L 140-40 0 normal Not Available [address], [address], 03/04/2022 02:27:36 03/03/20 22 03/04/2022 CBC (INCL UDES DIFF/ PLT) MPV 10.8 fL 7.5-12 .5 normal Not Available [address], [address], 03/04/2022 02:27:36 03/03/20 22 03/04/2022 CBC (INCL UDES DIFF/ PLT) absolute neutrophils 3394 cells /uL 1500-7 800 normal Not Available [facility] [address], [address], 03/04/2022 02:27:36 03/03/20 22 03/04/2022 CBC (INCL UDES DIFF/ PLT) absolute basophils 61 cells /uL 0-200 normal Not Available [facility] [address], [address], 03/04/2022 02:27:36 03/03/20 22 03/04/2022 CBC (INCL UDES DIFF/ PLT) absolute lymphocytes 1392 cells /uL 850-39 00 normal Not Available [address], [address], 03/04/2022 02:27:36 03/03/20 22 03/04/2022 CBC (INCL UDES DIFF/ PLT) absolute monocytes 517 cells /uL 200-95 0 normal Not Available [address], [address], 03/04/2022 02:27:36 03/03/20 22 03/04/2022 CBC (INCL UDES DIFF/ PLT) absolute eosinophils 138 cells /uL 15-500 normal Not Available [address], [address], 03/04/2022 02:27:36 03/03/20 22 03/04/2022 CBC (INCL UDES DIFF/ PLT) neutrophils 61.7 % normal Not Available [facility] [address], [address], 03/04/2022 02:27:36 03/03/20 22 03/04/2022 CBC (INCL UDES DIFF/ PLT) lymphocytes 25.3 % normal Not Available [facility] [address], [address], 03/04/2022 02:27:36 03/03/20 22 03/04/2022 CBC (INCL UDES DIFF/ PLT) monocytes 9.4 % normal Not Available [facility] [address], [address], 03/04/2022 02:27:36 03/03/20 22 03/04/2022 CBC (INCL UDES DIFF/ PLT) eosinophils 2.5 % normal Not Available [facility] [address], [address], 03/04/2022 02:27:36 03/03/20 22 03/04/2022 CBC (INCL UDES DIFF/ PLT) basophils 1.1 % normal Not Available [address], [address], 03/04/2022 02:27:36 03/03/20 22 03/04/2022 HEPAT IC FUNCT ION PANEL protein, total 6.8 g/dL 6.1-8. 1 normal Not Available [address], [address], 03/04/2022 02:27:36 03/03/20 22 03/04/2022 HEPAT IC FUNCT ION PANEL albumin 4.4 g/dL 3.6-5. 1 normal Not Available [address], [address], 03/04/2022 02:27:36 03/03/20 22 03/04/2022 HEPAT IC FUNCT ION PANEL globulin 2.4 g/dL_ (calc ) 1.9-3. 7 normal Not Available [address], [address], 03/04/2022 02:27:36 03/03/20 22 03/04/2022 HEPAT IC FUNCT ION PANEL albumin/glob ulin ratio 1.8 (calc ) 1.0-2. 5 normal Not Available [address], [address], 03/04/2022 02:27:36 03/03/20 22 03/04/2022 HEPAT IC FUNCT ION PANEL bilirubin, total 0.6 mg/dL 0.2-1. 2 normal Not Available [address], [address], 03/04/2022 02:27:36 03/03/20 22 03/04/2022 HEPAT IC FUNCT ION PANEL bilirubin, direct 0.1 mg/dL < or = 0.2 normal Not Available [address], [place], [address], 03/04/2022 02:27:36 03/03/20 22 03/04/2022 HEPAT IC FUNCT ION PANEL bilirubin, indirect 0.5 mg/dL _(john c) 0.2-1. 2 normal Not Available [address], [address], 03/04/2022 02:27:36 03/03/20 22 03/04/2022 HEPAT IC FUNCT ION PANEL alkaline phosphatase 65 U/L 37-153 normal Not Available [facility] [address] [address] [place], [address], 03/04/2022 02:27:36 03/03/20 22 03/04/2022 HEPAT IC FUNCT ION PANEL AST 13 U/L 10-35 normal Not Available [address], [address], 03/04/2022 02:27:36 03/03/20 22 03/04/2022 HEPAT IC FUNCT ION PANEL ALT 8 U/L 6-29 normal Not Available [address], [address], 03/04/2022 02:27:36 03/03/20 22 03/04/2022 HEPAT IC FUNCT ION PANEL comment We recei chip your handw ritte n test order and perfo rmed the AMA defin ed Hepat ic Funct ion Panel . If this is not what you inten ded to order , pleas e conta ct your local clien t servi ce repre senta tive immed iatel y so that we may adjus t our alec ng appro lowell harrington. You may also inqui re about alter nativ e or addit ional testi ng. Not Available [address], [address], 03/04/2022 02:27:36 03/03/20 22 03/04/2022 BASIC METAB OLIC PANEL creatinine 0.84 mg/dL 0.50-1 .05 normal Not Available [address] [address] [place], [address], 03/04/2022 02:27:35 03/03/20 22 03/04/2022 BASIC METAB OLIC PANEL glucose 90 mg/dL 65-99 normal Fasti ng refer ence inter yulia Not Available [address], [address], 03/04/2022 02:27:35 03/03/20 22 03/04/2022 BASIC METAB OLIC PANEL urea nitrogen (BUN) 15 mg/dL 7-25 normal Not Available [address], [address], 03/04/2022 02:27:35 03/03/20 22 03/04/2022 BASIC METAB OLIC PANEL eGFR 80 mL/mi n/1.7 3m2 > or = 60 normal The eGFR is based on the CKD-E PI 2020 equat ion. To calcu late the new eGFR from a previ ous Creat inine or Cysta tin C resul t, go to https ://pura trent/mary ibrahim/ kdoqi /gfr% 5Fcal culat or Not Available [address] [address] [place], [address], 03/04/2022 02:27:35 03/03/20 22 03/04/2022 BASIC METAB OLIC PANEL BUN/creatini ne ratio not applic able (calc ) 6-22 Not Available [address] [address] [place], [address], 03/04/2022 02:27:35 03/03/20 22 03/04/2022 BASIC METAB OLIC PANEL sodium 141 mmol/ L 135-14 6 normal Not Available [address] [address] [place], [address], 03/04/2022 02:27:35 03/03/20 22 03/04/2022 BASIC METAB OLIC PANEL potassium 4.9 mmol/ L 3.5-5. 3 normal Not Available [address], [address], 03/04/2022 02:27:35 03/03/20 22 03/04/2022 BASIC METAB OLIC PANEL chloride 108 mmol/ L 98-110 normal Not Available [address], [address], 03/04/2022 02:27:35 03/03/20 22 03/04/2022 BASIC METAB OLIC PANEL carbon dioxide 25 mmol/ L 20-32 normal Not Available [address], [address], 03/04/2022 02:27:35 03/03/20 22 03/04/2022 BASIC METAB OLIC PANEL calcium 9.1 mg/dL 8.6-10 .4 normal Not Available [address], [address], 03/04/2022 02:27:35 03/03/20 22 03/04/2022 LIPID PANEL , [place] cholesterol, total 161 mg/dL <200 normal Not Available [address], [address], 03/04/2022 02:27:35 03/03/20 22 03/04/2022 LIPID PANEL , [place] HDL cholesterol 42 mg/dL > or = 50 low Not Available [address], [address], 03/04/2022 02:27:35 03/03/20 22 03/04/2022 LIPID PANEL , [place] triglyceride s 143 mg/dL <150 normal Not Available [address], [address], 03/04/2022 02:27:35 03/03/20 22 03/04/2022 LIPID PANEL , [place] LDL-choleste rol 95 mg/dL _(john c) normal Refer ence range : <100 Joe able range <100 mg/dL for prima ry preve ntion ; <70 mg/dL for patie nts with CHD or diabe tic patie nts with > or = 2 CHD risk facto rs. LDL-C is now calcu lated using the Lay n-Hop kins kristenu john n, which is a valid ated novel metho d provi ding carole r accur acy than the Fried shahriar equat ion in the estim ation of LDL-C . Lay patterson SS et al. ARTIE. 2013; 310(1 9): 2061- 2068 (http ://ed ucati on.[employer]anny[employer]. com/f aq/FA Q164) Not Available [facility] [address], [address], 03/04/2022 02:27:35 03/03/20 22 03/04/2022 LIPID PANEL , [place] chol/HDLC ratio 3.8 (calc ) <5.0 normal Not Available [address], [address], 03/04/2022 02:27:35 03/03/20 22 03/04/2022 LIPID PANEL , [place] non HDL cholesterol 119 mg/dL _(john c) <130 normal For patie nts with diabe margarita plus 1 major ASCVD risk facto r, treat ing to a non-H DL-C goal of <100 mg/dL (LDL- C of <70 mg/dL ) is consi dered a thera peuti c optio n. Not Available [facility] [address], [address], 03/04/2022 02:27:35 03/03/20 22 03/04/2022 IRON, TIBC AND MANAN TIN PANEL iron, total 47 mcg/d L 45-160 normal Not Available [facility] [address], [address], 03/04/2022 02:27:34 03/03/20 22 03/04/2022 IRON, TIBC AND MANAN TIN PANEL iron binding capacity 478 mcg/d L_(ca lc) 250-45 0 high Not Available [address], [address], 03/04/2022 02:27:34 03/03/20 22 03/04/2022 IRON, TIBC AND MANAN TIN PANEL % saturation 10 %_(ca lc) 16-45 low Not Available [address], [address], 03/04/2022 02:27:34 03/03/20 22 03/04/2022 IRON, TIBC AND MANAN TIN PANEL ferritin 4 NG/mL 16-232 low Not Available [address], [address], 03/04/2022 02:27:34 09/27/19 24 09/28/2023 LIPID PANEL , [place] cholesterol, total 158 mg/dL <200 normal Not Available [address], [address], 09/28/2023 06:28:22 09/27/19 24 09/28/2023 LIPID PANEL , [place] HDL cholesterol 43 mg/dL > or = 50 low Not Available [address], [address], 09/28/2023 06:28:22 09/27/19 24 09/28/2023 LIPID PANEL , [place]AND [place] triglyceride s 93 mg/dL <150 normal Not Available [address], [address], 09/28/2023 06:28:22 09/27/19 24 09/28/2023 LIPID PANEL , [place] LDL-choleste rol 96 mg/dL _(john c) normal Refer ence range : <100 Joe able range <100 mg/dL for prima ry preve ntion ; <70 mg/dL for patie nts with CHD or diabe tic patie nts with > or = 2 CHD risk facto rs. LDL-C is now calcu lated using the [facility] n-Hop kins calcu génesisjad n, which is a valid ated novel metho d provi ding carole r accur acy than the Fried shahriar equat ion in the estim ation of LDL-C . Lay patterson SS et al. ARTIE. 2013; 310(1 9): 2061- 2068 (http ://ed ucati on.Qu estInsyde Software. com/f aq/FA Q164) Not Available [facility] [address] [address] [place], [address], 09/28/2023 06:28:22 09/27/19 24 09/28/2023 LIPID PANEL , [place] chol/HDLC ratio 3.7 (calc ) <5.0 normal Not Available [facility] [address] [address] [place], [address], 09/28/2023 06:28:22 09/27/1909/28/2023 LIPID PANEL , [place] non HDL cholesterol 115 mg/dL _(john c) <130 normal For patie nts with diabe margarita plus 1 major ASCVD risk facto r, treat ing to a non-H DL-C goal of <100 mg/dL (LDL- C of <70 mg/dL ) is consi dered a thera petereso c optio n. Not Available [facility] [address] [address] [address] , [place], [address], 09/28/2023 06:28:22 09/27/1909/28/2023 COMPR EHENS JENNIFER METAB OLIC PANEL glucose 95 mg/dL 65-99 normal Fasti ng refer ence inter yulia Not Available [facility] [address] [address] [place], [address], 09/28/2023 06:28:24 09/27/19 24 09/28/2023 COMPR EHENS JENNIFER METAB OLIC PANEL urea nitrogen (BUN) 15 mg/dL 7-25 normal Not Available [address], [address], 09/28/2023 06:28:24 09/27/19 24 09/28/2023 COMPR EHENS JENNIFER METAB OLIC PANEL creatinine 0.68 mg/dL 0.50-1 .05 normal Not Available [address], [address], 09/28/2023 06:28:24 09/27/19 24 09/28/2023 COMPR EHENS JENNIFER METAB OLIC PANEL eGFR 98 mL/mi n/1.7 3m2 > or = 60 normal Not Available [address], [address], 09/28/2023 06:28:24 09/27/19 24 09/28/2023 COMPR EHENS JENNIFER METAB OLIC PANEL BUN/creatini ne ratio SEE NOTE: (calc ) 6-22 Not Repor jeremiah: BUN and Creat inine are withi n refer ence range . Not Available [address], [address], 09/28/2023 06:28:24 09/27/19 24 09/28/2023 COMPR EHENS EJNNIFER METAB OLIC PANEL sodium 142 mmol/ L 135-14 6 normal Not Available [address], [address], 09/28/2023 06:28:24 09/27/19 24 09/28/2023 COMPR EHENS JENNIFER METAB OLIC PANEL potassium 4.3 mmol/ L 3.5-5. 3 normal Not Available [address], [address], 09/28/2023 06:28:24 09/27/19 24 09/28/2023 COMPR EHENS JENNIFER METAB OLIC PANEL chloride 107 mmol/ L 98-110 normal Not Available [address], [address], 09/28/2023 06:28:24 09/27/19 24 09/28/2023 COMPR EHENS JENNIFER METAB OLIC PANEL carbon dioxide 25 mmol/ L 20-32 normal Not Available [address], [address], 09/28/2023 06:28:24 09/27/19 24 09/28/2023 COMPR EHENS JENNIFER METAB OLIC PANEL calcium 9.3 mg/dL 8.6-10 .4 normal Not Available [address], [address], 09/28/2023 06:28:24 09/27/19 24 09/28/2023 COMPR EHENS JENNIFER METAB OLIC PANEL protein, total 6.4 g/dL 6.1-8. 1 normal Not Available [address], [address], 09/28/2023 06:28:24 09/27/19 24 09/28/2023 COMPR EHENS JENNIFER METAB OLIC PANEL albumin 4.3 g/dL 3.6-5. 1 normal Not Available [address], [address], 09/28/2023 06:28:24 09/27/19 24 09/28/2023 COMPR EHENS JENNIFER METAB OLIC PANEL globulin 2.1 g/dL_ (calc ) 1.9-3. 7 normal Not Available [address], [address], 09/28/2023 06:28:24 09/27/19 24 09/28/2023 COMPR EHENS JENNIFER METAB OLIC PANEL albumin/glob ulin ratio 2.0 (calc ) 1.0-2. 5 normal Not Available [address], [address], 09/28/2023 06:28:24 09/27/19 24 09/28/2023 COMPR EHENS JENNIFER METAB OLIC PANEL bilirubin, total 0.9 mg/dL 0.2-1. 2 normal Not Available [address], [address], 09/28/2023 06:28:24 09/27/19 24 09/28/2023 COMPR EHENS JENNIFER METAB OLIC PANEL alkaline phosphatase 84 U/L 37-153 normal Not Available [address], [address], 09/28/2023 06:28:24 09/27/19 24 09/28/2023 COMPR EHENS JENNIFER METAB OLIC PANEL AST 18 U/L 10-35 normal Not Available [address], [address], 09/28/2023 06:28:24 09/27/19 24 09/28/2023 COMPR EHENS JENNIFER METAB OLIC PANEL ALT 14 U/L 6-29 normal Not Available [address], [address], 09/28/2023 06:28:24 09/27/19 24 09/28/2023 CREAT INE KINAS E, TOTAL creatine kinase, total 73 U/L 29-143 normal Not Available [address], [address], 09/28/2023 06:28:25 09/27/19 24 09/28/2023 CBC (INCL UDES DIFF/ PLT) white blood cell count 5.9 thous and/u L 3.8-10 .8 normal Not Available [address], [address], 09/28/2023 06:28:26 09/27/19 24 09/28/2023 CBC (INCL UDES DIFF/ PLT) red blood cell count 4.56 ernestine on/uL 3.80-5 .10 normal Not Available [address], [address], 09/28/2023 06:28:26 09/27/19 24 09/28/2023 CBC (INCL UDES DIFF/ PLT) hemoglobin 14.1 g/dL 11.7-1 5.5 normal Not Available [address], [address], 09/28/2023 06:28:26 09/27/19 24 09/28/2023 CBC (INCL UDES DIFF/ PLT) hematocrit 41.6 % 35.0-4 5.0 normal Not Available [address], [address], 09/28/2023 06:28:26 09/27/19 24 09/28/2023 CBC (INCL UDES DIFF/ PLT) MCV 91.2 fL 80.0-1 00.0 normal Not Available [address], [address], 09/28/2023 06:28:26 09/27/19 24 09/28/2023 CBC (INCL UDES DIFF/ PLT) MCH 30.9 pg 27.0-3 3.0 normal Not Available [address], [address], 09/28/2023 06:28:26 09/27/19 24 09/28/2023 CBC (INCL UDES DIFF/ PLT) MCHC 33.9 g/dL 32.0-3 6.0 normal Not Available [address], [address], 09/28/2023 06:28:26 09/27/19 24 09/28/2023 CBC (INCL UDES DIFF/ PLT) RDW 12.3 % 11.0-1 5.0 normal Not Available [facility] [address], [address], 09/28/2023 06:28:26 09/27/19 24 09/28/2023 CBC (INCL UDES DIFF/ PLT) platelet count 222 thous and/u L 140-40 0 normal Not Available [address], [address], 09/28/2023 06:28:26 09/27/19 24 09/28/2023 CBC (INCL UDES DIFF/ PLT) MPV 10.9 fL 7.5-12 .5 normal Not Available [address], [address], 09/28/2023 06:28:26 09/27/19 24 09/28/2023 CBC (INCL UDES DIFF/ PLT) absolute neutrophils 3811 cells /uL 1500-7 800 normal Not Available [address], [address], 09/28/2023 06:28:26 09/27/19 24 09/28/2023 CBC (INCL UDES DIFF/ PLT) absolute lymphocytes 1375 cells /uL 850-39 00 normal Not Available [address], [address], 09/28/2023 06:28:26 09/27/19 24 09/28/2023 CBC (INCL UDES DIFF/ PLT) absolute monocytes 525 cells /uL 200-95 0 normal Not Available [address], [address], 09/28/2023 06:28:26 09/27/19 24 09/28/2023 CBC (INCL UDES DIFF/ PLT) absolute eosinophils 118 cells /uL 15-500 normal Not Available [address], [address], 09/28/2023 06:28:26 09/27/19 24 09/28/2023 CBC (INCL UDES DIFF/ PLT) absolute basophils 71 cells /uL 0-200 normal Not Available [address], [address], 09/28/2023 06:28:26 09/27/19 24 09/28/2023 CBC (INCL UDES DIFF/ PLT) neutrophils 64.6 % normal Not Available [address], [address], 09/28/2023 06:28:26 09/27/19 24 09/28/2023 CBC (INCL UDES DIFF/ PLT) lymphocytes 23.3 % normal Not Available [address], [address], 09/28/2023 06:28:26 09/27/19 24 09/28/2023 CBC (INCL UDES DIFF/ PLT) monocytes 8.9 % normal Not Available [address], [address], 09/28/2023 06:28:26 09/27/19 24 09/28/2023 CBC (INCL UDES DIFF/ PLT) eosinophils 2.0 % normal Not Available [address], [address], 09/28/2023 06:28:26 09/27/19 24 09/28/2023 CBC (INCL UDES DIFF/ PLT) basophils 1.2 % normal Not Available [address], [address], 09/28/2023 06:28:26 09/27/19 24 09/28/2023 MANAN TIN ferritin 26 NG/mL 16-288 normal Not Available [address], [address], 09/28/2023 06:28:27 09/27/19 24 09/28/2023 T4, FREE T4, free 1.4 NG/dL 0.8-1. 8 normal Not Available [address] [place], [address], 09/28/2023 06:28:28 09/27/19 24 09/28/2023 TSH TSH 3.20 mIU/L 0.40-4 .50 normal Not Available [facility] [address] , [place], [address], 09/28/2023 06:28:29 04/27/20 21 04/26/2021 US, thyro id No observ ation record ed. [id number] [facility] [address], [place], [address], 09/27/2022 08:28:14 06/20/20 22 06/16/2022 bone densi ty No observ ation record ed. [id number] [facility] [address], [place], [address], 09/27/2022 08:28:14 06/20/20 22 06/20/2022 MAMMO , scree álvaro, digit al, bilat eral No observ ation record ed. [id number] [facility] [address], [place], [address], 09/27/2022 08:28:14 06/20/20 22 06/20/2022 MAMMO , scree álvaro, digit al, bilat eral No observ ation record ed. [id number] [facility] [address], [place], [address], 09/27/2022 08:28:14 Result Notes None recorded. Problems Name Problem SNOMED Code Status Onset Date Resolution Date Notes Provider Name and Address Organization Details Recorded Time Ferritin level below reference range 809364938 Active 2019 Not Available [facility] 3 08:23:29 Anemia 233554338 Active 2020 Not Available [facility] 3 08:23:29 Hypertensive disorder 09109619 Active 2018 Not Available [facility] 3 08:23:29 Hypothyroidis m 70216236 Active 2018 Not Available [facility] 3 08:23:29 Hyperlipidemi a 52501125 Active 2018 Not Available [facility] 3 08:23:29 Hereditary hemochromatos is 05708677 Active 2023 GALE Ledezma [address], [place], [address] , [place] [facility] 4 16:23:14 Problem Notes None recorded. Procedures Surgical History Date Name Laterality Status Provider Name and Address Organization Details Recorded Time 01/07/20 Date of Last Colonoscopy completed Not Available [facility] 09/27/2022 08:19:14 Imaging Results Imaging Date Name Status LastModified by Organiz ation Details LastModified Time 04/26/2021 US, thyroid completed [id number] [facility] [address], [place], [address], 09/27/2022 08:28:14 06/16/2022 bone density completed [id number] [facility] [address], [place], [address], 09/27/2022 08:28:14 06/20/2022 MAMMO, screening, digital, bilateral completed [id number] [facility] [address], [place], [address], 09/27/2022 08:28:14 06/20/2022 MAMMO, screening, digital, bilateral completed [id number] [facility] [address], [place], [address], 09/27/2022 08:28:14 Procedure Notes None recorded. Medical Equipment None Reported. Allergies Allergen ID Allergen Name Allergen Category Reaction Reaction Severity Criticality Documentation Date Start Date Code Code System Note Provider Name and Address Organization Details Recorded Time Substance with sulfonami de structure and antibacte rial mechanism of action (substanc e) medicatio n Not available Not available Not available 09/27/2022 [id number] SNOMED Not Available [facility] 3 08:28:03 Medications Name Sig Start Date Stop Date Status Note LastModified by Organization Details LastModified Time amoxicill in 500 mg capsule TAKE 1 CAPSULE BY MOUTH THREE TIMES DAILY UNTIL ALL TAKEN 10/06 completed Not Available Not Available Not Available azithromy aman 250 mg tablet TAKE 2 TABLETS (500 MG) BY ORAL ROUTE ONCE DAILY FOR 1 DAY THEN 1 TABLET (250 MG) BY ORAL ROUTE ONCE DAILY FOR 4 DAYS 11/30 completed Not Available Not Available Not Available ibuprofen 800 mg tablet takes as needed 02/27 completed Not Available Not Available Not Available Synthroid 100 mcg tablet TAKE 1 TABLET DAILY FOR HYPOTHYR OIDISM (PATIENT NEEDS APPOINTM ENT FOR REFILLS) 2024 active Not Available Not Available Not Avai lable fluoroura cil 5 % topical cream active Not Available Not Available Not Available penicilli n V potassium 500 mg tablet 02/18 completed Not Available Not Available Not Available phentermi ne 37.5 mg tablet TAKE 1 TABLET BY MOUTH EVERY DAY 09/13 completed Not Available Not Available Not Available norethind scott acetate 1 mg-ethiny l estradiol 5 mcg tablet Take 1 tablet every day by oral route for 90 days. 09/13 completed Not Available Not Available Not Available levothyro xine 25 mcg tablet TK 1 T PO D 11/30 completed Not Available Not Available Not Available benzonata te 100 mg capsule TAKE 1 CAPSULE BY MOUTH EVERY 8 HOURS NEEDED 02/27 completed Not Available Not Available Not Available simvastat in 20 mg tablet TAKE 1 TABLET BY ORAL ROUTE DAILY 2023 active Not Available Not Available Not Avai lable lisinopri l 10 mg tablet TAKE 1 TABLET DAILY 2024 active Not Available Not Available Not Avai lable Synthroid 75 mcg tablet TAKE 1 TABLET DAILY active Not Available Not Available No t Available Synthroid 50 mcg tablet Take 1 po daily 01/10 completed Brand name Not Available Not Available Not Available hydroxyzi ne HCl 25 mg tablet 02/18 completed Not Available Not Available Not Available lisinopri l 5 mg tablet 02/18 completed Not Available Not Available Not Available amoxicill in 875 mg-potass ium clavulana te 125 mg tablet TAKE 1 TABLET BY MOUTH EVERY 12 HOURS FOR 10 DAYS 02/27 completed Not Available Not Available Not Available Prempro 0.45 mg-1.5 mg tablet 10/25 completed Not Available Not Available Not Available Vitamin C 02/23 completed gummies Not Available Not Available Not Available multivita min 2020 active Not Available Not Available Not Avai lable Elderberr y 11/04 completed gummies Not Available Not Available Not Available ferrous sulfate 324 mg (65 mg iron) tablet,de layed release TAKE 1 TABLET BY MOUTH DAILY active Not Available Not Available No t Available Triple [place] 3-6-9 2020 active Not Available Not Available Not Avai lable Suprep Bowel Prep Kit 17.5 gram-3.13 gram-1.6 gram oral solution MIX AND DRINK UTD active Not Available Not Available No t Available Osteo Bi-Flex 02/23 completed Not Available Not Available Not Available Auvi-Q 0.3 mg/0.3 mL injection , auto-inje ctor USE DIRECTED active Not Available Not Available No t Available Virtussin AC 10 mg-100 mg/5 mL oral liquid 11/30 completed Not Available Not Available Not Available Flonase Allergy Relief 2 sprays each nostril once daily 02/27 completed as needed Not Available Not Available Not Available Afluria Quad 9758-8794 (PF) 60 mcg (15 mcg x 4)/0.5 mL IM syringe ADM 0.5ML IM UTD 02/18 completed Not Available Not Available Not Available Flucelvax Quad (PF) 60 mcg (15 mcg x 4)/0.5 mL IM syringe ADM 0.5ML IM UTD 11/30 completed Not Available Not Available Not Available Flucelvax Quad (PF) 60 mcg (15 mcg x 4)/0.5 mL IM syringe ADM 0.5ML IM UTD 05/13 completed Not Available Not Available Not Available Flowflex COVID-19 Antigen Home Test kit 09/13 completed Not Available Not Available Not Available Vitals Date Recorded Body mass index (BMI) Body height Oxygen saturation Oxygen saturation in Arterial blood by Pulse oximetry Heart rate Body temperature Body weight Systolic blood pressure Diastolic blood pressure Provider Name and Address Organization Details Last Updated DateTime 1 29.3 kg/m2 168.91 cm 97 % 97 % 84 /min 97.2 [degF] 13693 g 136 mm[Hg] 84 mm[Hg] Not Available [facility] 3 08:20:32 Date Recorded Body mass index (BMI) Body height Oxygen saturation Oxygen saturation in Arterial blood by Pulse oximetry Heart rate Body temperature Body weight Systolic blood pressure Diastolic blood pressure Provider Name and Address Organization Details Last Updated DateTime 2 29.7 kg/m2 167.64 cm 98 % 98 % 96 /min 97.2 [degF] 67323 g 120 mm[Hg] 82 mm[Hg] Not Available [facility] 3 08:20:33 Date Recorded Body mass index (BMI) Body height Oxygen saturation Oxygen saturation in Arterial blood by Pulse oximetry Heart rate Body temperature Body weight Systolic blood pressure Diastolic blood pressure Provider Name and Address Organization Details Last Updated DateTime 2 28.2 kg/m2 167.64 cm 98 % 98 % 97 /min 97.7 [degF] 40364.9 5 g 120 mm[Hg] 80 mm[Hg] Not Available [facility] 3 08:20:33 Date Recorded Body mass index (BMI) Body height Oxygen saturation Oxygen saturation in Arterial blood by Pulse oximetry Heart rate Body temperature Body weight Systolic blood pressure Diastolic blood pressure Provider Name and Address Organization Details Last Updated DateTime 3 27.9 kg/m2 167.64 cm 98 % 98 % 84 /min 97.2 [degF] 01682.4 8 g 136 mm[Hg] 82 mm[Hg] Not Available [facility] 3 08:20:33 Date Recorded Body weight Body mass index (BMI) Body height Body temperature Heart rate Oxygen saturation Oxygen saturation in Arterial blood by Pulse oximetry Respiratory rate Systolic blood pressure Diastolic blood pressure Provider Name and Address Organization Details Last Updated DateTime 4 80049.4 4 g 28.7 kg/m2 167.64 cm 97.8 [degF] 84 /min 97 % 97 % 16 /min 128 mm[Hg] 84 mm[Hg] Danette Yadav RN [facility] 15:57:44 Social History Question Answer Notes LastModified by [facility] Details LastModified Time Tobacco Smoking Status Never Smoker Elena Magalie sahu [facility] 09/18/2023 15:52:23 What Is Your Level Of Alcohol Consumption? Occasional [id number] Information not available 09/27/2022 What Is Your Level Of Caffeine Consumption? Moderate [id number] Information not available 09/27/2022 In The 14 Days Before Symptom Onset, Have You Had Close Contact With A Laboratory-confirm ed COVID-19 While That Case Was Ill? No [email or web address] Information n ot available 09/18/2023 In The 14 Days Before Symptom Onset, Have You Had Close Contact With A Person Who Is Under Investigation For COVID-19 While That Person Was Ill? No [email or web address] Information not available 09/18/2023 What Type Of Diet Are You Following? REGULAR [id number] Information not available 09/27/2022 Are There Any Guns Present In Your Home? No [email or web address] Information not available 09/18/2023 What Was The Date Of Your Most Recent Tobacco Screening? 10/07/2020 Information not available 09/18/2023 Have You Ever Been Counseled For Unhealthy Alcohol Use? No [email or web address] Information not available 09/18/2023 Do You Use Any Illicit Or Recreational Drugs? No [email or web address] Information not available 09/18/2023 Has Tobacco Cessation Counseling Been Provided? No [email or web address] Information not available 09/18/2023 Have You Recently Traveled Abroad? No [email or web address] Information not available 09/18/2023 Do You Have Any Dietary Restrictions? No [email or web address] Information not available 09/18/2023 Do You Or Have You Ever Used Any Other Forms Of Tobacco Or Nicotine? No [email or web address] Information not available 09/18/2023 Sex: Unknown Functional Status Question Answer Note LastModified by [facility] Details LastModified Time What is your exercise level? Moderate [id number] Information not available 09/27/2022 Mental Status None recorded. Family History Relationship Description Onset Age of this Age Resolved Age Notes LastModified by Organization Details LastModified Time Father Hypertensive disorder [id number] Not available 09/27/2022 08:19:18 Mother Hypertensive disorder [id number] Not available 09/27/2022 08:19:18 Medical History Condition Response BLINDNESS N RHEUMATIC FEVER N KIDNEY STONES N BLADDER PROBLEMS N OTHER # 1 N POLIO N LUNG DISEASE/DISORDER N RADIATION / CHEMOTHERAPY N COPD N Other # 2 N BLOOD DISEASES N SURGERY N EAR OR HEARING PROBLEMS N MUMPS N FEMALE PROBLEMS / INFECTIONS N DEPRESSION (INCLUDING POST ) N BOWEL PROBLEMS N STROKE/TIA N THYROID DISEASE N ULCERS N BENIGN PROSTATIC HYPERPLASIA N MEASLES N CERVICALGIA N TB SKIN TEST N MYOCARDIAL INFARCTION N PARAPELGIA N OBESITY N GERD/NAUSEA N ANEURYSM N URINARY/BLADDER/KIDNEY PROBLEMS N INPATIENT PSYCH CARE N CORONARY ARTERY DISEASE (CAD) N MENIERE'S DISEASE N ADDICTION CONCERNS N ENDOMETRIOSIS N USE OF BLOOD THINNERS N SKIN PROBLEMS N EMPHYSEMA N GASTROINTESTINAL DISORDER N MUSCLE,JOINT OR BONE PROBLEMS N GASTROINTESTINAL BLEEDING N BLOOD CLOTS N ASTHMA N CATARACTS N ERECTILE DYSFUNCTION N GI PROBLEMS N CHF N Low Testosterone N NEUROPATHY N INFERTILITY N AIDS/HIV N FRACTURES N VISION/EYE PROBLEMS N LIVER DISEASE N MALE HYPOGONADISM N HYPERTENSION N ANXIETY DISORDER N BLOOD TRANSFUSION N ANEMIA/BLOOD DISORDER N CHRONIC EAR INFECTIONS N BRONCHITIS N TUBERCULOSIS N GLAUCOMA N FOOT PROBLEM N DIVERTICULITIS N SLEEP APNEA N CHICKENPOX N ALLERGIES/HAYFEVER N INFECTIOUS DISEASE N PROSTATE N HEART ARRHYTHMIA N INSOMNIA N HIGH CHOLESTEROL / HYPERLIPIDEMIA N EYE PROBLEMS N HYPERTHYROIDISM N EATING DISORDER N NEUROLOGICAL PROBLEMS N EDEMA N CHRONIC PAIN SYNDROME N HYPOTHYROIDISM N CAROTID BLOCKAGE N CONSTIPATION N BACK / NECK PROBLEMS N HAVE YOU BEEN HOSPITALIZED OR SEEN IN [facility] IN THE PAST YEAR ? N ATHEROSCLEROSIS N BREAST PROBLEMS N DIALYSIS N ECZEMA N FIBROMYALGIA N OSTEOPOROSIS N ARTHRITIS N NO SIGNIFICANT PAST MEDICAL HISTORY N APPENDICITIS N DIABETES, TYPE N BAD TEETH N HEARTBURN / REFLUX N ADD/ADHD N AUTISM SPECTRUM DISORDER (ASD) N HEPATITIS / LIVER DISEASE N PULMONARY DISEASE N GOUT N SLEEP DISORDER N ALZHEIMER'S DISEASE N PAIN N DEMENTIA N HERPES N SEIZURES/EPILEPSY N HEADACHES/MIGRAINES N VASCULAR DISEASE N PACEMAKER N DIZZINESS N HEART DISEASE/HEART PROBLEMS N KIDNEY DISEASE N SCARLET FEVER N MULTIPLE SCLEROSIS N DEVELOPMENTAL OR BEHAVIORAL DISORDERS N MENTAL DISORDER/ILLNESS N CANCER: SPECIFY N CARDIAC ARRHYTHMIA N PNEUMONIA N ANESTHESIA COMPLICATIONS N ATRIAL FIBRILLATION N PULMONARY EMBOLISM N AUTOIMMUNE DISEASE N Gynecological History Statement/Question Response Date of Last Pap 02/06/2020 Date of Last Mammogram 06/09/2020 Date of Last Colonoscopy 01/07/2020 Obstetrics History GPAL:G 0 P 0 0 0 0 Immunizations Vaccine Type Date Status Note Provider Nam e and Address Organization Details Recorded Time SARS-COV-2 (COVID-19) vaccine, UNSPECIFIED 1 completed Not Available [facility] 09/27/2022 08:27:50 SARS-COV-2 (COVID-19) vaccine, UNSPECIFIED 1 completed Not Available [facility] 09/27/2022 08:27:50 Influenza, split virus, quadrivalent, preservative 2 completed Not Available [facility] 09/27/2022 08:27:51 Influenza, split virus, quadrivalent, preservative 0 completed Not Available [facility] 09/27/2022 08:27:51 Influenza, split virus, quadrivalent, preservative 9 completed Not Available [facility] 09/27/2022 08:27:51 Past Encounters Encounter ID Performer Location Encounter Start Date Encounter Closed Date Diagnosis/Indication Diagnosis SNOMED-CT Code Diagnosis ICD10 Code Diagnosis Note [id number] [facility] [place] [address] 10/06/2020 00:00:00 10/07/2020 17:14:00 [id number] [facility] [place] [address] 11/04/2020 00:00:00 11/04/2020 17:00:13 [id number] [facility] [place] [address] 02/23/2021 00:00:00 02/23/2021 09:42:47 [id number] [facility] [place] [address] 02/27/2022 00:00:00 02/27/2022 10:34:14 [id number] [facility] [place] [address] [place] [address] 05/08/2022 00:00:00 05/08/2022 12:56:29 [id number] [facility] [place] [address] [place] [address] 09/13/2022 00:00:00 09/13/2022 10:28:20 [id number] GALE Ledezma [facility] [place] [address] [place] [address] 09/18/2023 15:43:33 09/18/2023 17:08:16 Hypothyroidism 28184447 E03.9 Hyperlipidemia 18101701 E78.5 Anemia 909893277 D64.9 Hereditary hemochromatosis 88014892 E83.110 Hypertensive disorder 38 890067 I10 Health Concerns Section Related Observation LastModified by Organization Detai ls LastModified Time None Recorded Concern Status LastModified by Organization Details LastModified Time None Recorded Advance Directives Directive None Recorded Payers Encounter Date Sequence Insurance Name Policy Number Policy [place] Covered Member ID [place] Member ID Guarantor Name 09/18/2023 1 [facility] [id number] Sahara Cancino [id number] Sahara Cancino Notes Date Note Type Note Provider Name and Address Organization Details Recorded Time 09/18/2023 text/html diagnosed with hemochromatosis GALE Ledezma [address] [place] [address] Amelia [facility] [address], [place], [address], [facility] 12/11/2023 14:30:12 OBGyn Episode No OBEpisode recorded.
--- OUTSIDE RECORDS SUMMARY | 2024-10-28 17:07 | XMS_ITS | Clinical Summary ---
Author Organization [facility] Abimael Yo Address [address] [place] [address] Care Team Providers Care Schedule Clerk Name Role Phone Michaela Valenzuela MD Primary Care Provider [phone] Allergies Active Allergy Reactions Criticality Noted Date Comments Sulfa (Sulfonamide Antibiotics) Hives High 05/30 Medications lisinopriL (PRINIVIL) 10 mg tablet 05/28/2022 Active simvastatin (ZOCOR) 20 mg tablet 05/21/2022 Active levothyroxine 75 mcg tablet Take 100 mcg by mouth. Active norethindrone-e thynyl estradiol (FEMHRT) 1-5 mg-mcg tablet 06/05/2022 Activ e ascorbic acid, vitamin C, (VITAMIN C) 100 mg Tablet Take 100 mg by mouth daily. Active ferrous sulfate 324 mg (65 mg iron) Tablet, Delayed Release (E.C.) ferrous sulfate 324 mg (65 mg iron) tablet,delay ed release TAKE 1 TABLET BY MOUTH DAILY Active cyanocobalamin (VITAMIN B-12) 250 mcg Tablet Take 500 mg by mouth daily. Active omega-3 fatty acids-fish oil 300-1,000 mg Capsule Take by mouth daily. Active coenzyme Q10 100 mg Capsule Take 100 mg by mouth daily. Active Active Problems No known active problems Encounters Date Type Department Care Team Description 10/15/2024 External Device Data [facility] ABSTRACTION Provider, Abstract 10/08/2024 External Device Data [facility] ABSTRACTION Provider, Abstract 10/07/2024 External Device Data [facility] ABSTRACTION Provider, Abstract 10/06/2024 External Device Data [facility] ABSTRACTION Provider, Abstract 10/04/2024 External Device Data [facility] ABSTRACTION Provider, Abstract 10/04/2024 External Device Data [facility] ABSTRACTION Provider, Abstract 10/01/2024 External Device Data [facility] ABSTRACTION Provider, Abstract 09/17/2024 External Device Data [facility] ABSTRACTION Provider, Abstract 08/21/2024 External Device Data [facility] ABSTRACTION Provider, Abstract 08/12/2024 External Device Data [facility] ABSTRACTION Provider, Abstract from Last 3 Months Family History Relation Name Status Comments Father Mother Alive Sister 1 Alive Sister 2 Alive Social History Tobacco Use Types Packs/Day Years Used Date Smoking Tobacco: Never Smokeless Tobacco: Never Tobacco Cessation:Counseling Given: Not Answered Comments Unknown Sex and Gender Information Value Date Recorded Sex Assigned at Not on file Legal Sex Female 3:47 PM CDT Gender Identity Not on file Sexual Orientation Not on file Last Filed Vital Signs Vital Sign Reading Time Taken Comments Blood Pressure 148/71 05/05/2024 2:51 PM CDT Pulse 71 05/05/2024 2:51 PM CDT Temperature 36.5 C (97.7 F) 05/05/2024 2:51 PM CDT Respiratory Rate 14 01/01/2024 2:01 PM CDT Oxygen Saturation 98% 05/05/2024 2:51 PM CDT Inhaled Oxygen Concentration - - Weight 81.2 kg (179 lb) 05/05/2024 2:51 PM CDT Height 170.2 cm (5' 7 ) 02/12/2023 1:07 PM CDT Body Mass Index 28.04 02/12/2023 1:07 PM CDT Plan of Treatment Upcoming Encounters Date Type Department Care Team (Late st Contact Info) Description 11/05/2024 1:00 PM CDT Office Visit [facility] Oncology and Hematology - [place] [address] [facility] [address] [place] [address] Kip Mccarty MD [address] [facility] [address] [place] [address] Health Maintenance Due Date Last Done Comments Pre-Diabetes and Diabetes Screening 1961 HPV/Cotest (21-29) 1982 HPV/Cotest (30-65) 1991 BREAST CANCER SCREENING 2001 COLORECTAL SCREENING 2006 Colorectal Cancer Screening 2006 FIT-DNA Q 3 years 2006 FIT/FOBT Q 1 year 2006 Flex Sig/CT Colonography Q 5 years 2006 ZOSTER VACCINE (1 of 2) 2011 INFLUENZA VACCINE (#1) 2024 04/28/2023 COVID-19 Vaccine (5 - 2023-2 5 season) 2024 11/07/2021, 05/31/2021, 10/09/2020, Additional history exists Preventative Visit- Commercial 07/30/2024 09/05/2022 , 02/17/2020 CERVICAL CANCER SCREENING 09/14/2026 PAP SMEAR 09/14/2026 09/14/2023, 01/2023, 02/17/2020 DTAP/TDAP/TD VACCINES (2 - T d or Tdap) 02/16/2030 02/17/2020 RSV VACCINE (60+ or ) (1 - 1-dose 75+ series) 2036 Insurance Care Teams Schedule Clerk Relationship Specialty Start Date End Date Michaela Valenzuela MD PCP - General Family Practice 02/12/23
--- OUTSIDE RECORDS SUMMARY | 2024-10-28 17:07 | XMS_ITS | Encounter Summary ---
Author Organization [facility] Address [address] [place] [address] Care Team Providers Care Manager Pharmacy Name Role Phone Neal Barger DO Primary Care Provider [phone] Neal Barger DO Primary Care Provider [phone] Miriam Laurent Primary Care Pr ovider Encounter Details Date Type Department Care Team (Late st Contact Info) Description 10/12/2016 Orders Only [facility]hythmia Center Provider, MD Haley [address] [place] [id number] Social History Tobacco Use Types Packs/Day Years Used Date Smoking Tobacco: Never Assessed Alcohol Use Standard Drinks/Week Comments Yes 0 (1 standard drink = 0.6 oz pur e alcohol) Comments Unknown Sex and Gender Information Value Date Recorded Sex Assigned at Not on file 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 Historical Provider [facility] DUFFY Final Result documented in this encounter Visit Diagnoses Not on filedocumented in this encounter Care Teams Manager Pharmacy Relationship Specialty Start Date End Date Neal Barger DO PCP - General 10/27/16 07/23/24 Neal Barger DO PCP - General 08/24/16 10/26/16 Miriam Laurent PA [address] [place] [address] PCP - General Physician Prizer Hand 07/24/24 documented as of this encounter
--- OUTSIDE RECORDS SUMMARY | 2024-10-28 17:07 | XMS_ITS | Referral Summary ---
Author Organization [facility] [address] Address [address] [place] [address] Care Team Providers Care Learning Manager Name Role Phone Miriam Laurent Primary Care Pr ovider Allergies Active Allergy Reactions Criticality Noted Date Comments Sulfa (Sulfonamide Antibiotics) Medications simvastatin (ZOCOR) 20 mg tablet take 1 tablet by oral route every day in the evening 0 0 4 Active lisinopril (PRINIVIL,ZESTRI L) 5 mg tablet take 1 tablet by oral route every day 0 0 4 Active Additional Information Patient taking differently: 10 mg oral Daily, Reported on 07/24/2024 mometasone (NASONEX) 50 mcg/actuation nasal spray spray 2 spray by intranasal route every day in each nostril 0 spray 0 7 Active Additional Information Patient not taking.Reported on 07/24/2024 coenzyme Q10 (CO Q-10) 100 mg capsule take 1 by Oral route once 0 0 7 Active metoprolol (LOPRESSOR) 25 mg tablet take 1 tablet by oral route every day as needed 60 1 4 Active Additional Information Patient not taking.Reported on 07/24/2024 chromium-brindal hare (APPETITE CONTROL) 200-500 mcg-mg tablet 0 3 Active aspirin (ASPIRIN LOW DOSE) 81 mg tablet take 1 tablet (81MG) by oral route every day 0 3 Active Additional Information Patient not taking.Reported on 07/24/2024 glucosamine-rosa droit-vit C-Mn (GLUCOSAMINE CHONDROITIN MAXSTR) 500-400 mg capsule take 2 Capsule by Oral route every day 0 3 Active Additional Information Patient not taking.Reported on 07/24/2024 lisinopril (PRINIVIL,ZESTRI L) 5 mg tablet take 1 tablet (5MG) by oral route every day 0 3 Active Additional Information Patient not taking.Reported on 07/24/2024 norethindrone-e. estradiol-iron (LOESTRIN 24 FE) 1 mg-20 mcg (24)/75 mg (4) per tablet take 1 tablet by oral route every day 0 3 Active Additional Information Patient not taking.Reported on 07/24/2024 methylcellulose, laxative, (FIBER THERAPY, M-CELLULOSE,) 500 mg tablet 500 mg. 0 3 Active Additional Information Patient not taking.Reported on 07/24/2024 simvastatin (ZOCOR) 20 mg tablet take 1 tablet (20MG) by oral route every day at bedtime 0 3 Active Additional Information Patient not taking.Reported on 07/24/2024 collagenase (SANTYL) ointment 0 3 Active Additional Information Patient not taking.Reported on 07/24/2024 cyanocobalamin (Vitamin B-12) 250 mcg tablet Take 2,000 tablets (500,000 mcg total) by mouth daily Active ascorbic acid (VITAMIN C) 100 mg tablet Take 1 tablet (100 mg total) by mouth daily Active fish,bora,flax oils-om3,6,9no1 (Triple [place] 3-6-9) 400-400-400 mg capsule 1 Active benzonatate (TESSALON) 100 mg capsuleIndicatio ns:Cough Take 1 capsule (100 mg total) by mouth 3 (three) times a day as needed for cough 21 capsule 4 Active Active Problems No known active problems Social History Tobacco Use Types Packs/Day Years Used Date Smoking Tobacco: Never Assessed Alcohol Use Standard Drinks/Week Comments Yes 0 (1 standard drink = 0.6 oz pur e alcohol) Comments Unknown Sex and Gender Information Value Date Recorded Sex Assigned at Not on file 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 Gender Identity Not on file Sexual Orientation Not on file Last Filed Vital Signs Vital Sign Reading Time Taken Comments Blood Pressure 147/86 07/24/2024 3:20 PM WRONG ADDRESS CLERK Pulse 87 07/24/2024 3:20 PM WRONG ADDRESS CLERK Temperature 36.9 C (98.5 F) 07/24/2024 3:20 PM WRONG ADDRESS CLERK Respiratory Rate 18 07/24/2024 3:20 PM WRONG ADDRESS CLERK Oxygen Saturation 99% 07/24/2024 3:20 PM WRONG ADDRESS CLERK Inhaled Oxygen Concentration - - Weight 80.4 kg (177 lb 3.2 oz) 07/24/2024 3:20 P M WRONG ADDRESS CLERK Height 170.2 cm (5' 7.01 ) 07/24/2024 3:20 PM CS T Body Mass Index 27.75 07/24/2024 3:20 PM WRONG ADDRESS CLERK Plan of Treatment Not on file Insurance [facility] CHOICE PLUS [facility] HMO/PPO Address: [facility] [address] [id number] Care Teams Learning Manager Relationship Specialty Start Date End Date Miriam Laurent PA [address] [place] [address] PCP - General Physician Manager Immunology 07/24/24
--- OUTSIDE RECORDS SUMMARY | 2024-10-28 17:07 | XMS_ITS | Encounter Summary ---
Author Organization [facility] Address [address] [facility] [address] [place] [address] Care Team Providers Care Day Care Aide Name Role Phone Neal Barger DO Primary Care Provider [phone] Neal Barger DO Primary Care Provider [phone] Miriam Laurent Primary Care Pr ovider Encounter Details Date Type Department Care Team (Late st Contact Info) Description 08/24/2016 Orders Only Arrhythmia Center Provider, MD Haley [address] [place] [id number] Social History Tobacco Use Types Packs/Day Years Used Date Smoking Tobacco: Never Assessed Alcohol Use Standard Drinks/Week Comments Yes 0 (1 standard drink = 0.6 oz pur e alcohol) Comments Unknown Sex and Gender Information Value Date Recorded Sex Assigned at Not on file 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 Historical Provider [facility] DUFF[facility] Final Result documented in this encounter Visit Diagnoses Not on filedocumented in this encounter Care Teams Day Care Aide Relationship Specialty Start Date End Date Neal Barger DO PCP - General 10/27/16 07/23/24 Neal Barger DO PCP - General 08/24/16 10/26/16 Miriam Laurent PA [address] [place] [address] PCP - General Physician Party Plan Salesperson 07/24/24 documented as of this encounter
--- OUTSIDE RECORDS SUMMARY | 2024-10-28 17:07 | XMS_ITS | Clinical Summary ---
Author Organization [facility] [address] Address [address] [place] [phone] Care Team Providers Care Aquatic Performer Name Role Phone Miriam Laurent Primary Care [...] by mouth daily Active fish,bora,flax oils-om3,6,9no1 (Triple [place] 3-6-9) 400-400-400 mg capsule 1 Active benzonatate (TESSALON) 100 mg capsuleIndicatio ns:Cough Take 1 capsule (100 mg total) by mouth 3 (three) times a day as needed for cough 21 capsule 4 Active Active Problems No known active problems Surgical History Surgery Date Site/Laterality Comments SECTION 1986 Caesarean Section SECTION 1988 Caesarean Section Medical History Medical History Date Comments Delivered by section Jana lira delivery; Comments: HUSSAIN 04/02/2014 - Family History Medical History Relation Name Comments Arrhythmia Father 2 Arrhythmias; Valvular heart disease Sister 3 1 Valvu lar Heart Disease; Arrhythmia Sister 4 2 Arrhythmias; Relation Name Status Comments Father 1 Alive Father 2 Sister 1 1 Alive Sister 2 2 Alive Sister 3 1 Sister 4 2 Social History Tobacco Use Types Packs/Day Years Used Date Smoking Tobacco: Never Assessed Alcohol Use Standard Drinks/Week Comments Yes 0 (1 standard drink = 0.6 oz pur e alcohol) Comments Unknown Sex and Gender Information Value Date Recorded Sex Assigned at Not on file 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 Gender Identity Not on file Sexual Orientation Not on file Obstetrics History Last Filed Vital Signs Vital Sign Reading Time Taken Comments Blood Pressure 147/86 07/24/2024 3:20 PM PROFESSOR OF ENGLISH Pulse 87 07/24/2024 3:20 PM PROFESSOR OF ENGLISH Temperature 36.9 C (98.5 F) 07/24/2024 3:20 PM PROFESSOR OF ENGLISH Respiratory Rate 18 07/24/2024 3:20 PM PROFESSOR OF ENGLISH Oxygen Saturation 99% 07/24/2024 3:20 PM PROFESSOR OF ENGLISH Inhaled Oxygen Concentration - - Weight 80.4 kg (177 lb 3.2 oz) 07/24/2024 3:20 P M PROFESSOR OF ENGLISH Height 170.2 cm (5' 7.01 ) 07/24/2024 3:20 PM CS T Body Mass Index 27.75 07/24/2024 3:20 PM PROFESSOR OF ENGLISH Plan of Treatment Health Maintenance Due Date Last Done Comments Breast Cancer Screening-Mammogram 1961 Colon Cancer Screening-Colonoscopy 1961 Depression Screening 1961 Hepatitis C Screening 1961 Hepatitis B Screening 1979 Regular Well Visit/Exam 18-64 1979 Cervical Cancer Screening 02/16/2021 02/17/2020 DTaP/Tdap/Td Vaccine (3 - Td or Tdap) 02/16/2030 02/17/2020, 04/19/2017 Zoster Vaccine Completed 06/06/2022, 02/01/2022 Influenza Vaccine Completed 05/17/2024, , 05/05/2022, Additional history exists Covid-19 Vaccine Completed 05/29/2024, 08/2022, 11/07/2021, Additional history exists Pneumococcal vaccine <65 Aged Out No longer eligible based on patient's age to complete this topic Insurance [facility] CHOICE PLUS Care Teams Aquatic Performer Relationship Specialty Start Date End Date Miriam Laurent PA [address] [place] [address] PCP - General Physician Instructional Writer 07/24/24
[2024-10-28 17:22] LABS: Iron 86 ug/dL (37-170)
[2024-10-28 17:32] LABS: Percent Iron Saturation 24 % (20-50)
[2024-10-28 17:56] LABS: Ferritin 9.99 ng/mL (11.1-264)
[2024-10-28 18:28] LABS: Folic Acid 9.1 ng/mL (2.76->20)
== END 2024-10-28 15:40 | disposition home or self-care (01) ==
LOC: ANHLAB 15:40
PROVIDERS: PCP Physician Assistant; Visit Provider Internal Medicine Hematology & Oncology
DX: E83.19 Other disorders of iron metabolism (principal)
CPT/HCPCS: 36415; 82607; 82728; 82746; 83540; 83550; 85027

== ENCOUNTER 2024-12-29 15:49 | Outpatient (CLI) | payer OTHER, SELFPAY ==
--- NOTE | ~2024-12-29 | MM_ITS ---
PROCEDURE: MM SCREENING VIVIAN BI W SAMUEL INDICATION: Asymptomatic, referred for screening mammogram COMPARISON: 12/27/2023 through 02/24/2019 TECHNIQUE: Digital breast tomosynthesis craniocaudal and mediolateral oblique views of Both breasts w ere obtained with computer-aided detection to assist in interpretation of the study. FINDINGS: There are scattered areas of fibroglandular density No focal dominant mass, architectural distortion, or suspicious microcalcifications are identified. There are no features to suggest malignancy. IMPRESSION: No evidence of malignancy in the breast. Recommend continued screening mammography BI-RADS 1, NEGATIVE Reviewed, dictated and finalized at location B.
== END 2024-12-29 15:50 | disposition home or self-care (01) ==
LOC: MICIMG 15:50
PROVIDERS: PCP Nurse Practitioner; Visit Provider Physician Assistant
DX: Z12.31 Encounter for screening mammogram for malignant neoplasm of breast (principal)
CPT/HCPCS: 77063; 77067

== ENCOUNTER 2025-01-16 13:54 | Outpatient (CLI) | payer OTHER, SELFPAY ==
--- NOTE | ~2025-01-16 | US_ITS ---
Thyroid ultrasound. Clinical History: Thyroid nodule COMPARISON: 04/26/2021 Findings: Real-time sonography of the thyroid gland was performed. The right lobe measures 3.8 x 1.6 x 1.7 cm. The left lobe measures 3.2 x 1.1 x 0.8 cm. The isthmus is 3 mm in AP diameter. Thyroid parenchyma is markedly and diffusely heterogeneous. No definite discrete nodule seen. Impression: Diffusely, markedly heterogeneous thyroid parenchyma without definite, discrete nodule.. Reviewed, dictated and finalized at location M. Impression: Diffusely, markedly heterogeneous thyroid parenchyma without definite, discrete nodule..
== END 2025-01-16 13:55 | disposition home or self-care (01) ==
PROVIDERS: PCP Nurse Practitioner; Visit Provider Physician Assistant
DX: E07.9 Disorder of thyroid, unspecified (principal)
CPT/HCPCS: 76536

== ENCOUNTER 2025-05-20 15:31 | Outpatient (CLI) | payer OTHER, SELFPAY ==
[2025-05-20 15:44] LABS: Hematocrit 39.0 % (37.0-47.0); Hemoglobin 13.0 g/dL (12.0-15.0); Mean Corpuscular HGB Conc 33.3 g/dl (32-36); Mean Corpuscular Hemoglobin 30.7 pg (26-34); Mean Corpuscular Volume 92.2 fl (80-100); Platelet Count Result 217 k/mm3 (150-375); Red Blood Count 4.23 M/mm3 (4.2-5.4); White Blood Count 7.2 K/mm3 (4.5-10.0)
[2025-05-20 17:08] LABS: Iron 82 ug/dL (37-170)
[2025-05-20 17:21] LABS: Percent Iron Saturation 24 % (20-50)
[2025-05-20 17:45] LABS: Ferritin 15.80 ng/mL (11.1-264)
[2025-05-20 17:53] LABS: Vitamin B12 992.0 pg/mL (239-931)
--- OUTSIDE RECORDS SUMMARY | 2025-05-20 19:47 | XMS_ITS | Data Portability ---
Author Organization [place] [facility] [address], Main Office Address [address] [place] [address] Assessment No assessment recorded. Plan of Treatment Reminders Order Date Submit Date Provider Last Modified By Organization Details Last Modified Time Details Appointments None recorded. Lab CBC w/ auto diff 2023 024 [email or web address] [facility] (Lab), [address] [place], [address], 4 08:57:03 ferritin, serum or plasma 2023 024 [email or web address] 2 [facility] (Lab), [address] [place], [address], 4 08:57:03 lipid panel, serum 2023 024 [email or web address] [facility] (Lab), [address] [place], [address], 4 08:57:02 CMP, serum or plasma 2023 024 [email or web address] 2 [facility] (Lab), [address] [place], [address], 4 08:57:02 CK (creatine kinase), total, serum 2023 024 [email or web address] 2 [facility] (Lab), [address] [place], [address], 4 08:57:03 TSH, serum or plasma 2023 024 [email or web address] 2 [facility] (Lab), [address] [place], [address], 4 08:57:02 T4, free, serum 2023 024 [email or web address] 2 [facility] (Lab), [address] [place], [address], 4 08:57:02 Referral None recorded. Procedures None recorded. Surgeries None recorded. Imaging None recorded. Medication Orders Synthroid 100 mcg tablet 2023 024 [email or web address] [address] [facility], [address] [facility], [place], [address], 4 16:37:50 Patient TargetsNo targets recorded. Patient InstructionsNo instructions recorded. Reason for Referral None Reported. Results Created Date Observation Date Name Description Value Unit Range Abnormal Flag Note LastModifiedBy Organization Detail LastModifiedTime 02/26/20 21 02/26/2021 HEPAT IC FUNCT ION PANEL protein, total 6.7 g/dL 6.1-8. 1 normal Not Available [facility] [place] [address] [place], [address], 02/26/2021 04:14:53 02/26/2002/26/2021 HEPAT IC FUNCT ION PANEL albumin 4.3 g/dL 3.6-5. 1 normal Not Available [facility] [address] [address] [place], [address], 02/26/2021 04:14:53 02/26/20 21 02/26/2021 HEPAT IC FUNCT ION PANEL globulin 2.4 g/dL_ (calc ) 1.9-3. 7 normal Not Available [facility] [address] [place] [address] [place], [address], 02/26/2021 04:14:53 02/26/20 21 02/26/2021 HEPAT IC FUNCT ION PANEL albumin/glob ulin ratio 1.8 (calc ) 1.0-2. 5 normal Not Available [address], [address], 02/26/2021 04:14:53 02/26/20 21 02/26/2021 HEPAT IC FUNCT ION PANEL bilirubin, total 0.8 mg/dL 0.2-1. 2 normal Not Available [address] [place], [address], 02/26/2021 04:14:53 02/26/20 21 02/26/2021 HEPAT IC FUNCT ION PANEL bilirubin, direct 0.1 mg/dL < or = 0.2 normal Not Available [address] [address] [place], [address], 02/26/2021 04:14:53 02/26/20 21 02/26/2021 HEPAT IC FUNCT ION PANEL bilirubin, indirect 0.7 mg/dL _(john c) 0.2-1. 2 normal Not Available [address] [address] [place], [address], 02/26/2021 04:14:53 02/26/20 21 02/26/2021 HEPAT IC FUNCT ION PANEL alkaline phosphatase 69 U/L 37-153 normal Not Available [address] [address] [place], [address], 02/26/2021 04:14:53 02/26/20 21 02/26/2021 HEPAT IC FUNCT ION PANEL AST 14 U/L 10-35 normal Not Available [address], [address], 02/26/2021 04:14:53 02/26/20 21 02/26/2021 HEPAT IC FUNCT ION PANEL ALT 10 U/L 6-29 normal Not Available [address], [address], 02/26/2021 04:14:53 02/26/20 21 02/26/2021 BASIC METAB OLIC PANEL creatinine 0.84 mg/dL 0.50-1 .05 normal For patie nts >49 years of age, the refer ence limit for Creat inine is appro ximat juany 13% highe r for peopl e ident ified as Afric an-Am rogelio n. Not Available [address], [address], 02/26/2021 04:14:53 02/26/20 21 02/26/2021 BASIC METAB OLIC PANEL glucose 88 mg/dL 65-99 normal Fasti ng refer ence inter yulia Not Available [address], [address], 02/26/2021 04:14:53 02/26/20 21 02/26/2021 BASIC METAB OLIC PANEL urea nitrogen (BUN) 15 mg/dL 7-25 normal Not Available [address], [address], 02/26/2021 04:14:53 02/26/20 21 02/26/2021 BASIC METAB OLIC PANEL eGFR non-afr. togolese 76 mL/mi n/1.7 3m2 > or = 60 normal Not Available [address], [address], 02/26/2021 04:14:53 02/26/20 21 02/26/2021 BASIC METAB OLIC PANEL eGFR 88 mL/mi n/1.7 3m2 > or = 60 normal Not Available [address], [address], 02/26/2021 04:14:53 02/26/20 21 02/26/2021 BASIC METAB OLIC PANEL BUN/creatini ne ratio not applic able (calc ) 6-22 Not Available [address], [address], 02/26/2021 04:14:53 02/26/20 21 02/26/2021 BASIC METAB OLIC PANEL sodium 139 mmol/ L 135-14 6 normal Not Available [address], [address], 02/26/2021 04:14:53 02/26/20 21 02/26/2021 BASIC METAB OLIC PANEL potassium 4.1 mmol/ L 3.5-5. 3 normal Not Available [address], [address], 02/26/2021 04:14:53 02/26/20 21 02/26/2021 BASIC METAB OLIC PANEL chloride 106 mmol/ L 98-110 normal Not Available [address], [address], 02/26/2021 04:14:53 02/26/20 21 02/26/2021 BASIC METAB OLIC PANEL carbon dioxide 25 mmol/ L 20-32 normal Not Available [address], [address], 02/26/2021 04:14:53 02/26/20 21 02/26/2021 BASIC METAB OLIC PANEL calcium 9.0 mg/dL 8.6-10 .4 normal Not Available [address], [address], 02/26/2021 04:14:53 02/26/20 21 02/26/2021 LIPID PANEL , STAND EDWARD HDL cholesterol 37 mg/dL > or = 50 low Not Available [address], [address], 02/26/2021 04:14:52 02/26/20 21 02/26/2021 LIPID PANEL , STAND [place]WARD cholesterol, total 156 mg/dL <200 normal Not Available [address], [address], 02/26/2021 04:14:52 02/26/20 21 02/26/2021 LIPID PANEL , STAND EDWARD triglyceride s 144 mg/dL <150 normal Not Available [facility] [address] [place], [address], 02/26/2021 04:14:52 02/26/20 21 02/26/2021 LIPID PANEL [...] lated using the Lay n-Hop kins calcu john n, which is a valid ated novel metho d provi ding carole r accur acy than the Fried shahriar equat ion in the estim ation of LDL-C . Lay patterson SS et al. ARTIE. 2013; 310(1 9): 2061- 2068 (http ://ed ucati on.[employer]. com/f aq/FA Q164) Not Available [address], [place], [address], 02/26/2021 04:14:52 02/26/20 21 02/26/2021 LIPID PANEL , STAND EDWARD chol/HDLC ratio 4.2 (calc ) <5.0 normal Not Available [facility] [address] [facility] [place], [address], 02/26/2021 04:14:52 02/26/20 21 02/26/2021 LIPID PANEL , [place] non HDL cholesterol 119 mg/dL _(john c) <130 normal For patie nts with diabe margarita plus 1 major ASCVD risk facto r, treat ing to a non-H DL-C goal of <100 mg/dL (LDL- C of <70 mg/dL ) is consi dered a thera peuti c optio n. Not Available [address], [address], 02/26/2021 04:14:52 02/26/2002/26/2021 IRON, TIBC AND MANAN TIN PANEL iron, total 193 mcg/d L 45-160 high Not Available [address], [address], 02/26/2021 04:14:52 02/26/20 21 02/26/2021 IRON, TIBC AND MANAN TIN PANEL iron binding capacity 432 mcg/d L_(ca lc) 250-45 0 normal Not Available [address], [address], 02/26/2021 04:14:52 02/26/20 21 02/26/2021 IRON, TIBC AND MANAN TIN PANEL % saturation 45 %_(ca lc) 16-45 normal Not Available [address], [address], 02/26/2021 04:14:52 02/26/20 21 02/26/2021 IRON, TIBC AND MANAN TIN PANEL ferritin 16 NG/mL 16-232 normal Not Available [address], [address], 02/26/2021 04:14:52 02/26/2002/26/2021 TSH TSH 2.13 mIU/L 0.40-4 .50 normal Not Available [address], [address], 02/26/2021 04:14:55 02/26/2002/26/2021 CBC (INCL UDES DIFF/ PLT) white blood cell count 6.6 thous and/u L 3.8-10 .8 normal Not Available [address], [address], 02/26/2021 04:14:55 02/26/20 21 02/26/2021 CBC (INCL UDES DIFF/ PLT) red blood cell count 5.01 ernestine on/uL 3.80-5 .10 normal Not Available [address], [address], 02/26/2021 04:14:55 02/26/20 21 02/26/2021 CBC (INCL UDES DIFF/ PLT) hemoglobin 13.9 g/dL 11.7-1 5.5 normal Not Available [address], [address], 02/26/2021 04:14:55 02/26/20 21 02/26/2021 CBC (INCL UDES DIFF/ PLT) hematocrit 44.6 % 35.0-4 5.0 normal Not Available [address], [address], 02/26/2021 04:14:55 02/26/20 21 02/26/2021 CBC (INCL UDES DIFF/ PLT) MCV 89.0 fL 80.0-1 00.0 normal Not Available [address], [address], 02/26/2021 04:14:55 02/26/20 21 02/26/2021 CBC (INCL UDES DIFF/ PLT) MCH 27.7 pg 27.0-3 3.0 normal Not Available [address], [address], 02/26/2021 04:14:55 02/26/20 21 02/26/2021 CBC (INCL UDES DIFF/ PLT) MCHC 31.2 g/dL 32.0-3 6.0 low Not Available [address], [address], 02/26/2021 04:14:55 02/26/20 21 02/26/2021 CBC (INCL UDES DIFF/ PLT) RDW 13.7 % 11.0-1 5.0 normal Not Available [address], [address], 02/26/2021 04:14:55 02/26/20 21 02/26/2021 CBC (INCL UDES DIFF/ PLT) platelet count 250 thous and/u L 140-40 0 normal Not Available [address], [address], 02/26/2021 04:14:55 02/26/20 21 02/26/2021 CBC (INCL UDES DIFF/ PLT) MPV 11.5 fL 7.5-12 .5 normal Not Available [address], [address], 02/26/2021 04:14:55 02/26/20 21 02/26/2021 CBC (INCL UDES DIFF/ PLT) absolute neutrophils 4019 cells /uL 1500-7 800 normal Not Available [address], [address], 02/26/2021 04:14:55 02/26/20 21 02/26/2021 CBC (INCL UDES DIFF/ PLT) absolute lymphocytes 1736 cells /uL 850-39 00 normal Not Available [address], [address], 02/26/2021 04:14:55 02/26/20 21 02/26/2021 CBC (INCL UDES DIFF/ PLT) absolute monocytes 653 cells /uL 200-95 0 normal Not Available [address], [address], 02/26/2021 04:14:55 02/26/2002/26/2021 CBC (INCL UDES DIFF/ PLT) lymphocytes 26.3 % normal Not Available [address], [address], 02/26/2021 04:14:55 02/26/20 21 02/26/2021 CBC (INCL UDES DIFF/ PLT) absolute eosinophils 132 cells /uL 15-500 normal Not Available [address], [address], 02/26/2021 04:14:55 02/26/20 21 02/26/2021 CBC (INCL UDES DIFF/ PLT) absolute basophils 59 cells /uL 0-200 normal Not Available [address], [address], 02/26/2021 04:14:55 02/26/20 21 02/26/2021 CBC (INCL UDES DIFF/ PLT) neutrophils 60.9 % normal Not Available [address], [address], 02/26/2021 04:14:55 02/26/20 21 02/26/2021 CBC (INCL UDES DIFF/ PLT) monocytes 9.9 % normal Not Available [address], [address], 02/26/2021 04:14:55 02/26/2002/26/2021 CBC (INCL UDES DIFF/ PLT) eosinophils 2.0 % normal Not Available [address], [address], 02/26/2021 04:14:55 02/26/2002/26/2021 CBC (INCL UDES DIFF/ PLT) basophils 0.9 % normal Not Available [address], [address], 02/26/2021 04:14:55 09/17/19 22 09/18/2021 TSH W/REF HERLINDA TO FT4 TSH w/reflex to FT4 1.76 mIU/L 0.40-4 .50 normal Not Available [address], [address], 09/18/2021 08:52:11 03/03/20 22 03/04/2022 TSH TSH 2.98 mIU/L 0.40-4 .50 normal Not Available [address], [address], 03/04/2022 02:27:37 03/03/20 22 03/04/2022 CBC (INCL UDES DIFF/ PLT) white blood cell count 5.5 thous and/u L 3.8-10 .8 normal Not Available [address], [address], 03/04/2022 02:27:36 03/03/20 22 03/04/2022 CBC (INCL UDES DIFF/ PLT) red blood cell count 4.32 ernestine on/uL 3.80-5 .10 normal Not Available [address], [address], 03/04/2022 02:27:36 03/03/20 22 03/04/2022 CBC (INCL UDES DIFF/ PLT) hemoglobin 11.2 g/dL 11.7-1 5.5 low Not Available [facility] [address], [address], 03/04/2022 02:27:36 03/03/20 22 03/04/2022 CBC (INCL UDES DIFF/ PLT) hematocrit 36.8 % 35.0-4 5.0 normal Not Available [address], [address], 03/04/2022 02:27:36 03/03/20 22 03/04/2022 CBC (INCL UDES DIFF/ PLT) MCV 85.2 fL 80.0-1 00.0 normal Not Available [facility] [address], [address], 03/04/2022 02:27:36 03/03/20 22 03/04/2022 CBC (INCL UDES DIFF/ PLT) MCH 25.9 pg 27.0-3 3.0 low Not Available [facility] [address], [address], 03/04/2022 02:27:36 03/03/20 22 03/04/2022 CBC (INCL UDES DIFF/ PLT) MCHC 30.4 g/dL 32.0-3 6.0 low Not Available [address], [address], 03/04/2022 02:27:36 03/03/20 22 03/04/2022 CBC (INCL UDES DIFF/ PLT) RDW 15.1 % 11.0-1 5.0 high Not Available [address], [address], 03/04/2022 02:27:36 03/03/20 22 03/04/2022 CBC (INCL UDES DIFF/ PLT) platelet count 295 thous and/u L 140-40 0 normal Not Available [address], [address], 03/04/2022 02:27:36 03/03/20 22 03/04/2022 CBC (INCL UDES DIFF/ PLT) MPV 10.8 fL 7.5-12 .5 normal Not Available [address], [address], 03/04/2022 02:27:36 03/03/20 22 03/04/2022 CBC (INCL UDES DIFF/ PLT) absolute neutrophils 3394 cells /uL 1500-7 800 normal Not Available [facility] [address], [address], 03/04/2022 02:27:36 03/03/20 22 03/04/2022 CBC (INCL UDES DIFF/ PLT) absolute basophils 61 cells /uL 0-200 normal Not Available [facility] [address], [address], 03/04/2022 02:27:36 03/03/20 22 03/04/2022 CBC (INCL UDES DIFF/ PLT) absolute lymphocytes 1392 cells /uL 850-39 00 normal Not Available [address], [address], 03/04/2022 02:27:36 03/03/20 22 03/04/2022 CBC (INCL UDES DIFF/ PLT) absolute monocytes 517 cells /uL 200-95 0 normal Not Available [address], [address], 03/04/2022 02:27:36 03/03/20 22 03/04/2022 CBC (INCL UDES DIFF/ PLT) absolute eosinophils 138 cells /uL 15-500 normal Not Available [address], [address], 03/04/2022 02:27:36 03/03/20 22 03/04/2022 CBC (INCL UDES DIFF/ PLT) neutrophils 61.7 % normal Not Available [facility] [address], [address], 03/04/2022 02:27:36 03/03/20 22 03/04/2022 CBC (INCL UDES DIFF/ PLT) lymphocytes 25.3 % normal Not Available [facility] [address], [address], 03/04/2022 02:27:36 03/03/20 22 03/04/2022 CBC (INCL UDES DIFF/ PLT) monocytes 9.4 % normal Not Available [facility] [address], [address], 03/04/2022 02:27:36 03/03/20 22 03/04/2022 CBC (INCL UDES DIFF/ PLT) eosinophils 2.5 % normal Not Available [facility] [address], [address], 03/04/2022 02:27:36 03/03/20 22 03/04/2022 CBC (INCL UDES DIFF/ PLT) basophils 1.1 % normal Not Available [address], [address], 03/04/2022 02:27:36 03/03/20 22 03/04/2022 HEPAT IC FUNCT ION PANEL protein, total 6.8 g/dL 6.1-8. 1 normal Not Available [address], [address], 03/04/2022 02:27:36 03/03/20 22 03/04/2022 HEPAT IC FUNCT ION PANEL albumin 4.4 g/dL 3.6-5. 1 normal Not Available [address], [address], 03/04/2022 02:27:36 03/03/20 22 03/04/2022 HEPAT IC FUNCT ION PANEL globulin 2.4 g/dL_ (calc ) 1.9-3. 7 normal Not Available [address], [address], 03/04/2022 02:27:36 03/03/20 22 03/04/2022 HEPAT IC FUNCT ION PANEL albumin/glob ulin ratio 1.8 (calc ) 1.0-2. 5 normal Not Available [address], [address], 03/04/2022 02:27:36 03/03/20 22 03/04/2022 HEPAT IC FUNCT ION PANEL bilirubin, total 0.6 mg/dL 0.2-1. 2 normal Not Available [address], [address], 03/04/2022 02:27:36 03/03/20 22 03/04/2022 HEPAT IC FUNCT ION PANEL bilirubin, direct 0.1 mg/dL < or = 0.2 normal Not Available [address] [address] [place], [address], 03/04/2022 02:27:36 03/03/20 22 03/04/2022 HEPAT IC FUNCT ION PANEL bilirubin, indirect 0.5 mg/dL _(john c) 0.2-1. 2 normal Not Available [address] [address] [place], [address], 03/04/2022 02:27:36 03/03/20 22 03/04/2022 HEPAT IC FUNCT ION PANEL alkaline phosphatase 65 U/L 37-153 normal Not Available [facility] [address] [address] [place], [address], 03/04/2022 02:27:36 03/03/20 22 03/04/2022 HEPAT IC FUNCT ION PANEL AST 13 U/L 10-35 normal Not Available [address], [address], 03/04/2022 02:27:36 03/03/20 22 03/04/2022 HEPAT IC FUNCT ION PANEL ALT 8 U/L 6-29 normal Not Available [address], [address], 03/04/2022 02:27:36 03/03/20 22 03/04/2022 HEPAT IC [...] or addit ional testi ng. Not Available [address] [address] [place], [address], 03/04/2022 02:27:36 03/03/20 22 03/04/2022 BASIC METAB OLIC PANEL creatinine 0.84 mg/dL 0.50-1 .05 normal Not Available [address], [address], 03/04/2022 02:27:35 03/03/20 22 03/04/2022 BASIC METAB OLIC PANEL glucose 90 mg/dL 65-99 normal Fasti ng refer ence inter yulia Not Available [address], [address], 03/04/2022 02:27:35 03/03/20 22 03/04/2022 BASIC METAB OLIC PANEL urea nitrogen (BUN) 15 mg/dL 7-25 normal Not Available [address], [address], 03/04/2022 02:27:35 03/03/20 22 03/04/2022 BASIC METAB OLIC PANEL eGFR 80 mL/mi n/1.7 3m2 > or = 60 normal The eGFR is based on the CKD-E PI 2020 equat ion. To calcu late the new eGFR from a previ ous Creat inine or Cysta socrates C resul t, go to https ://pura durand.mallory trent/mary galan s/ kdoqi /gfr% 5Fcal culat or Not Available [address], [address], 03/04/2022 02:27:35 03/03/20 22 03/04/2022 BASIC METAB OLIC PANEL BUN/creatini ne ratio not applic able (calc ) 6-22 Not Available [address], [address], 03/04/2022 02:27:35 03/03/20 22 03/04/2022 BASIC METAB OLIC PANEL sodium 141 mmol/ L 135-14 6 normal Not Available [address], [address], 03/04/2022 02:27:35 03/03/20 22 03/04/2022 BASIC METAB OLIC PANEL potassium 4.9 mmol/ L 3.5-5. 3 normal Not Available [address], [address], 03/04/2022 02:27:35 03/03/20 22 03/04/2022 BASIC METAB OLIC PANEL chloride 108 mmol/ L 98-110 normal Not Available [address], [address], 03/04/2022 02:27:35 03/03/20 22 03/04/2022 BASIC METAB OLIC PANEL carbon dioxide 25 mmol/ L 20-32 normal Not Available [address], [address], 03/04/2022 02:27:35 03/03/20 22 03/04/2022 BASIC METAB OLIC PANEL calcium 9.1 mg/dL 8.6-10 .4 normal Not Available [address], [address], 03/04/2022 02:27:35 03/03/20 22 03/04/2022 LIPID PANEL , STAND [place]WARD cholesterol, total 161 mg/dL <200 normal Not Available [address], [address], 03/04/2022 02:27:35 03/03/20 22 03/04/2022 LIPID PANEL , [place] HDL cholesterol 42 mg/dL > or = 50 low Not Available [address], [address], 03/04/2022 02:27:35 03/03/20 22 03/04/2022 LIPID PANEL , [place] triglyceride s 143 mg/dL <150 normal Not Available [address], [address], 03/04/2022 02:27:35 03/03/20 22 03/04/2022 LIPID PANEL [...] lated using the Lay n-Hop kins calcu john n, which is a valid ated novel metho d provi ding carole r accur acy than the Fried shahriar equat ion in the estim ation of LDL-C . Lay patterson SS et al. ARTIE. 2013; 310(1 9): 2061- 2068 (http ://ed ucati on.[employer]. [employer]/f aq/FA Q164) Not Available [facility] [address], [address], 03/04/2022 02:27:35 03/03/20 22 03/04/2022 LIPID PANEL , [place] chol/HDLC ratio 3.8 (calc ) <5.0 normal Not Available [address], [address], 03/04/2022 02:27:35 03/03/20 22 03/04/2022 LIPID PANEL , [place] non HDL cholesterol 119 mg/dL _(john c) <130 normal For patie nts with diabe margarita plus 1 major ASCVD risk facto r, treat ing to a non-H DL-C goal of <100 mg/dL (LDL- C of <70 mg/dL ) is consi fouziad a thera peuti c optio n. Not Available [address], [address], 03/04/2022 02:27:35 03/03/20 22 03/04/2022 IRON, TIBC AND MANAN TIN PANEL iron, total 47 mcg/d L 45-160 normal Not Available [facility] [address] [place], [address], 03/04/2022 02:27:34 03/03/20 22 03/04/2022 IRON, TIBC AND MANAN TIN PANEL iron binding capacity 478 mcg/d L_(ca lc) 250-45 0 high Not Available [address], [address], 03/04/2022 02:27:34 03/03/20 22 03/04/2022 IRON, TIBC AND MANAN TIN PANEL % saturation 10 %_(ca lc) 16-45 low Not Available [address], [address], 03/04/2022 02:27:34 03/03/20 22 03/04/2022 IRON, TIBC AND MANAN TIN PANEL ferritin 4 NG/mL 16-232 low Not Available [address], [address], 03/04/2022 02:27:34 09/27/19 24 09/28/2023 LIPID PANEL , [place]AND [place] cholesterol, total 158 mg/dL <200 normal Not Available [address], [address], 09/28/2023 06:28:22 09/27/19 24 09/28/2023 LIPID PANEL , [place] HDL cholesterol 43 mg/dL > or = 50 low Not Available [address], [address], 09/28/2023 06:28:22 09/27/19 24 09/28/2023 LIPID PANEL , [place] triglyceride s 93 mg/dL <150 normal Not Available [address], [address], 09/28/2023 06:28:22 09/27/19 24 09/28/2023 LIPID PANEL , [place] LDL-choleste rol 96 mg/dL _(john c) normal Refer ence range : <100 Joe able range <100 mg/dL for prima ry preve ntion ; <70 mg/dL for patie nts with CHD or diabe tic patie nts with > or = 2 CHD risk facto rs. LDL-C is now calcu lated using the [facility] n-Hop kins calcu john n, which is a valid ated novel metho d provi ding carole r accur acy than the Fried shahriar equat ion in the estim ation of LDL-C . Lay patterson SS et al. ARTIE. 2013; 310(1 9): 2061- 2068 (http ://ed ucati on.[employer]. [employer]/f aq/FA Q164) Not Available [facility] [address] [address] [place], [address], 09/28/2023 06:28:22 09/27/19 24 09/28/2023 LIPID PANEL , [place] chol/HDLC ratio 3.7 (calc ) <5.0 normal Not Available [facility] [address] [address] [address] , [place], [address], 09/28/2023 06:28:22 09/27/19 24 09/28/2023 LIPID PANEL , [place] non HDL cholesterol 115 mg/dL _(john c) <130 normal For patie nts with diabe margarita plus 1 major ASCVD risk facto r, treat ing to a non-H DL-C goal of <100 mg/dL (LDL- C of <70 mg/dL ) is consi fouziad a nahid breaux c optio n. Not Available [facility] [address] [place] [address] [place], [address], 09/28/2023 06:28:22 09/27/19 24 09/28/2023 COMPR EHENS JENNIFER METAB OLIC PANEL glucose 95 mg/dL 65-99 normal Fasti ng refer ence inter yulia Not Available [facility] [address] [address] [place], [address], 09/28/2023 06:28:24 09/27/19 24 09/28/2023 COMPR EHENS JENNIFER METAB OLIC PANEL urea nitrogen (BUN) 15 mg/dL 7-25 normal Not Available [address], [address], 09/28/2023 06:28:24 09/27/19 24 09/28/2023 COMPR EHENS JENNIFER METAB OLIC PANEL creatinine 0.68 mg/dL 0.50-1 .05 normal Not Available [address], [address], 09/28/2023 06:28:24 09/27/19 24 09/28/2023 COMPR EHENS JENNIFER METAB OLIC PANEL eGFR 98 mL/mi n/1.7 3m2 > or = 60 normal Not Available [address], [address], 09/28/2023 06:28:24 09/27/19 24 09/28/2023 COMPR EHENS JENNIFER METAB OLIC PANEL BUN/creatini ne ratio SEE NOTE: (calc ) 6-22 Not Repor jeremiah: BUN and Creat inine are withi n refer ence range . Not Available [address], [address], 09/28/2023 06:28:24 09/27/19 24 09/28/2023 COMPR EHENS JENNIFER METAB OLIC PANEL sodium 142 mmol/ L 135-14 6 normal Not Available [address], [address], 09/28/2023 06:28:24 09/27/19 24 09/28/2023 COMPR EHENS JENNIFER METAB OLIC PANEL potassium 4.3 mmol/ L 3.5-5. 3 normal Not Available [address], [address], 09/28/2023 06:28:24 09/27/19 24 09/28/2023 COMPR EHENS JENNIFER METAB OLIC PANEL chloride 107 mmol/ L 98-110 normal Not Available [address], [address], 09/28/2023 06:28:24 09/27/19 24 09/28/2023 COMPR EHENS JENNIFER METAB OLIC PANEL carbon dioxide 25 mmol/ L 20-32 normal Not Available [address], [address], 09/28/2023 06:28:24 09/27/19 24 09/28/2023 COMPR EHENS JENNIFER METAB OLIC PANEL calcium 9.3 mg/dL 8.6-10 .4 normal Not Available [address], [address], 09/28/2023 06:28:24 09/27/19 24 09/28/2023 COMPR EHENS JENNIFER METAB OLIC PANEL protein, total 6.4 g/dL 6.1-8. 1 normal Not Available [address], [address], 09/28/2023 06:28:24 09/27/19 24 09/28/2023 COMPR EHENS JENNIFER METAB OLIC PANEL albumin 4.3 g/dL 3.6-5. 1 normal Not Available [address], [address], 09/28/2023 06:28:24 09/27/19 24 09/28/2023 COMPR EHENS JENNIFER METAB OLIC PANEL globulin 2.1 g/dL_ (calc ) 1.9-3. 7 normal Not Available [address], [address], 09/28/2023 06:28:24 09/27/19 24 09/28/2023 COMPR EHENS JENNIFER METAB OLIC PANEL albumin/glob ulin ratio 2.0 (calc ) 1.0-2. 5 normal Not Available [address], [address], 09/28/2023 06:28:24 09/27/19 24 09/28/2023 COMPR EHENS JENNIFER METAB OLIC PANEL bilirubin, total 0.9 mg/dL 0.2-1. 2 normal Not Available [address], [address], 09/28/2023 06:28:24 09/27/19 24 09/28/2023 COMPR EHENS JENNIFER METAB OLIC PANEL alkaline phosphatase 84 U/L 37-153 normal Not Available [address], [address], 09/28/2023 06:28:24 09/27/19 24 09/28/2023 COMPR EHENS JENNIFER METAB OLIC PANEL AST 18 U/L 10-35 normal Not Available [address], [address], 09/28/2023 06:28:24 09/27/19 24 09/28/2023 COMPR EHENS JENNIFER METAB OLIC PANEL ALT 14 U/L 6-29 normal Not Available [address], [address], 09/28/2023 06:28:24 09/27/19 24 09/28/2023 CREAT INE KINAS E, TOTAL creatine kinase, total 73 U/L 29-143 normal Not Available [address], [address], 09/28/2023 06:28:25 09/27/19 24 09/28/2023 CBC (INCL UDES DIFF/ PLT) white blood cell count 5.9 thous and/u L 3.8-10 .8 normal Not Available [address], [address], 09/28/2023 06:28:26 09/27/19 24 09/28/2023 CBC (INCL UDES DIFF/ PLT) red blood cell count 4.56 ernestine on/uL 3.80-5 .10 normal Not Available [address], [address], 09/28/2023 06:28:26 09/27/19 24 09/28/2023 CBC (INCL UDES DIFF/ PLT) hemoglobin 14.1 g/dL 11.7-1 5.5 normal Not Available [address], [address], 09/28/2023 06:28:26 09/27/19 24 09/28/2023 CBC (INCL UDES DIFF/ PLT) hematocrit 41.6 % 35.0-4 5.0 normal Not Available [address], [address], 09/28/2023 06:28:26 09/27/19 24 09/28/2023 CBC (INCL UDES DIFF/ PLT) MCV 91.2 fL 80.0-1 00.0 normal Not Available [address], [address], 09/28/2023 06:28:26 09/27/19 24 09/28/2023 CBC (INCL UDES DIFF/ PLT) MCH 30.9 pg 27.0-3 3.0 normal Not Available [address], [address], 09/28/2023 06:28:26 09/27/19 24 09/28/2023 CBC (INCL UDES DIFF/ PLT) MCHC 33.9 g/dL 32.0-3 6.0 normal Not Available [address], [address], 09/28/2023 06:28:26 09/27/19 24 09/28/2023 CBC (INCL UDES DIFF/ PLT) RDW 12.3 % 11.0-1 5.0 normal Not Available [address], [place], [address], 09/28/2023 06:28:26 09/27/19 24 09/28/2023 CBC (INCL UDES DIFF/ PLT) platelet count 222 thous and/u L 140-40 0 normal Not Available [address], [address], 09/28/2023 06:28:26 09/27/19 24 09/28/2023 CBC (INCL UDES DIFF/ PLT) MPV 10.9 fL 7.5-12 .5 normal Not Available [facility] [address], [address], 09/28/2023 06:28:26 09/27/19 24 09/28/2023 CBC (INCL UDES DIFF/ PLT) absolute neutrophils 3811 cells /uL 1500-7 800 normal Not Available [address], [address], 09/28/2023 06:28:26 09/27/19 24 09/28/2023 CBC (INCL UDES DIFF/ PLT) absolute lymphocytes 1375 cells /uL 850-39 00 normal Not Available [address], [address], 09/28/2023 06:28:26 09/27/19 24 09/28/2023 CBC (INCL UDES DIFF/ PLT) absolute monocytes 525 cells /uL 200-95 0 normal Not Available [address], [address], 09/28/2023 06:28:26 09/27/19 24 09/28/2023 CBC (INCL UDES DIFF/ PLT) absolute eosinophils 118 cells /uL 15-500 normal Not Available [address], [address], 09/28/2023 06:28:26 09/27/19 24 09/28/2023 CBC (INCL UDES DIFF/ PLT) absolute basophils 71 cells /uL 0-200 normal Not Available [address], [address], 09/28/2023 06:28:26 09/27/19 24 09/28/2023 CBC (INCL UDES DIFF/ PLT) neutrophils 64.6 % normal Not Available [address], [address], 09/28/2023 06:28:26 09/27/19 24 09/28/2023 CBC (INCL UDES DIFF/ PLT) lymphocytes 23.3 % normal Not Available [address], [address], 09/28/2023 06:28:26 09/27/19 24 09/28/2023 CBC (INCL UDES DIFF/ PLT) monocytes 8.9 % normal Not Available [address], [address], 09/28/2023 06:28:26 09/27/19 24 09/28/2023 CBC (INCL UDES DIFF/ PLT) eosinophils 2.0 % normal Not Available [address], [address], 09/28/2023 06:28:26 09/27/19 24 09/28/2023 CBC (INCL UDES DIFF/ PLT) basophils 1.2 % normal Not Available [address], [address], 09/28/2023 06:28:26 09/27/19 24 09/28/2023 MANAN TIN ferritin 26 NG/mL 16-288 normal Not Available [address], [address], 09/28/2023 06:28:27 09/27/19 24 09/28/2023 T4, FREE T4, free 1.4 NG/dL 0.8-1. [address] [facility] [place] [address] [place], [address], 09/28/2023 06:28:28 09/27/19 24 09/28/2023 TSH TSH 3.20 mIU/L 0.40-4 .50 normal Not Available [facility] [address] [place], [address], 09/28/2023 06:28:29 04/27/20 21 04/26/2021 US, thyro id No observ ation record ed. [id number] [facility] [address], [place], [address], 09/27/2022 08:28:14 06/20/20 22 06/16/2022 bone densi ty No observ ation record ed. [id number] [facility] [address], [place], [address], 09/27/2022 08:28:14 06/20/20 22 06/20/2022 MAMMO , scree álvaro, digit al, bilat eral No observ ation record ed. [id number] [facility] [address], [place], [address], 09/27/2022 08:28:14 06/20/20 22 06/20/2022 MAMMO , scree álvaro, digit al, bilat eral No observ ation record ed. [id number] [facility] [address], [place], [address], 09/27/2022 08:28:14 Result Notes None recorded. Problems Name Problem SNOMED Code Status Onset Date Resolution Date Notes Provider Name and Address Organization Details Recorded Time Hypertensive disorder 42603771 Active 2018 Not Available [facility] 3 08:23:29 Hypothyroidis m 01105598 Active 2018 Not Available [facility] 08:[facility]29 Hyperlipidemi a 14984636 Active 2018 Not Available [facility] 3 08:23:29 Ferritin level below reference range 202588176 Active 2019 Not Available [facility] 3 08:23:29 Anemia 659389352 Active 2020 Not Available [facility] 3 08:23:29 Hereditary hemochromatos is 05704538 Active 2023 GALE Ledezma [address] [facility], [place], [address] , [place] [facility] [address] 4 16:23:14 Problem Notes None recorded. Procedures Surgical History Date Name Laterality Status Provider Name and Address Organization Details Recorded Time 01/07/20 Date of Last Colonoscopy completed Not Available [facility] 09/27/2022 08:19:14 Imaging Results None recorded. Procedure Notes None recorded. Medical Equipment None Reported. Allergies Allergen ID Allergen Name Allergen Category Reaction Reaction Severity Criticality Documentation Date Start Date Code Code System Note Provider Name and Address Organization Details Recorded Time Substance with sulfonami de structure and antibacte rial mechanism of action (substanc e) medicatio n Not available Not available Not available 09/27/2022 62133 [id number] SNOMED Not Available [facility] 3 08:28:03 Medications Name Sig Start Date [...] in 20 mg tablet TAKE 1 TABLET DAILY active Not Available Not Available No t Available lisinopri l 10 mg tablet TAKE 1 TABLET DAILY (NEED APPOINTM ENT FOR ANY FURTHER REFILLS) active Not Available Not Available No t Available Synthroid 75 mcg tablet TAKE 1 TABLET [...] Available Not Available No t Available [facility] [place] 3-6-9 2020 active Not Available Not Available [...] Available Not Available Not Available Afluria Quad (PF) 60 mcg (15 mcg x [...] Heart rate Body temperature Body weight Systolic And Diastolic Provider Name and Address Organization Details Last Updated DateTime 3 27.9 kg/m2 167.64 cm 98 % 98 % 84 /min 97.2 [degF] 04581.4 8 g 136/82 mm[Hg] Not Available [facility] 3 08:20:33 Date Recorded Body weight Body mass index (BMI) Body height Body temperature Heart rate Oxygen saturation Oxygen saturation in Arterial blood by Pulse oximetry Respiratory rate Systolic And Diastolic Provider Name and Address Organization Details Last Updated DateTime 4 04107.4 4 g 28.7 kg/m2 167.64 cm 97.8 [degF] 84 /min 97 % 97 % 16 /min 128/84 mm[Hg] Danette Yadav RN [place] [facility] 4 15:57:44 Date Recorded Body mass index (BMI) Body height Oxygen saturation Oxygen saturation in Arterial blood by Pulse oximetry Heart rate Body temperature Body weight Systolic And Diastolic Provider Name and Address Organization Details Last Updated DateTime 1 29.3 kg/m2 168.91 cm 97 % 97 % 84 /min 97.2 [degF] 09615 g 136/84 mm[Hg] Not Available [facility] 3 08:20:32 Date Recorded Body mass index (BMI) Body height Oxygen saturation Oxygen saturation in Arterial blood by Pulse oximetry Heart rate Body temperature Body weight Systolic And Diastolic Provider Name and Address Organization Details Last Updated DateTime 2 29.7 kg/m2 167.64 cm 98 % 98 % 96 /min 97.2 [degF] 42437 g 120/82 mm[Hg] Not Available [facility] 3 08:20:33 Date Recorded Body mass index (BMI) Body height Oxygen saturation Oxygen saturation in Arterial blood by Pulse oximetry Heart rate Body temperature Body weight Systolic And Diastolic Provider Name and Address Organization Details Last Updated DateTime 2 28.2 kg/m2 167.64 cm 98 % 98 % 97 /min 97.7 [degF] 99369.9 5 g 120/80 mm[Hg] Not Available [facility] 3 08:20:33 Social History Question Answer Notes LastModified by Organizat ion Details LastModified Time Tobacco Smoking Status Never Smoker BENITEZ Britton MA Ogone [facility] 09/18/2023 15:52:23 What Is Your Level Of Caffeine Consumption? Moderate [id number] Information not available 09/27/2022 In The 14 Days Before Symptom Onset, Have You Had Close Contact With A Laboratory-confirm ed COVID-19 While That Case Was Ill? No [email or web address] Information n ot available 09/18/2023 In The 14 Days Before Symptom Onset, Have You Had Close Contact With A Person Who Is Under Investigation For COVID-19 While That Person Was Ill? No [email or web address] Information not available 09/18/2023 What Type Of Diet Are You Following? REGULAR [id number] Information not available 09/27/2022 Are There Any Guns Present In Your Home? No [email or web address] Information not available 09/18/2023 What Was The Date Of Your Most Recent Tobacco Screening? 10/07/2020 [email or web address] Information not available 09/18/2023 Have You Ever Been Counseled For Unhealthy Alcohol Use? No [email or web address] Information not available 09/18/2023 Has Tobacco Cessation Counseling Been Provided? No [email or web address] Information not available 09/18/2023 Have You Recently Traveled Abroad? No [email or web address] Information not available 09/18/2023 Do You Have Any Dietary Restrictions? No [email or web address] Information not available 09/18/2023 Sex: Unknown Functional Status Question Answer Note LastModified by Organizat ion Details LastModified Time Do you use any illicit or recreational drugs? No [email or web address] Information not available 09/18/2023 Do you or have you ever used any other forms of tobacco or nicotine? No [email or web address] Information not available 09/18/2023 What is your level of alcohol consumption? Occasional [id number] Information not available 09/27/2022 What is your exercise level? Moderate [id number] Information not available 09/27/2022 Mental Status None recorded. Family History Relationship Description Onset Age of this Age Resolved Age Notes LastModified by Organization Details LastModified Time Father Hypertensive disorder [id number] Not available 09/27/2022 08:19:18 Mother Hypertensive disorder [id number] Not available 09/27/2022 08:19:18 Medical History Condition Response BLINDNESS N RHEUMATIC FEVER N BLADDER PROBLEMS N KIDNEY STONES N OTHER # 1 N POLIO N LUNG DISEASE/DISORDER N RADIATION / CHEMOTHERAPY N COPD N Other # 2 N BLOOD DISEASES N SURGERY N EAR OR HEARING PROBLEMS N MUMPS N FEMALE PROBLEMS / INFECTIONS N BOWEL PROBLEMS N DEPRESSION (INCLUDING POST ) N STROKE/TIA N THYROID DISEASE N ULCERS [...] N CHRONIC PAIN SYNDROME N HYPOTHYROIDISM N CONSTIPATION N CAROTID BLOCKAGE N BACK / NECK PROBLEMS N HAVE YOU BEEN HOSPITALIZED OR SEEN IN [facility] IN THE PAST YEAR ? N ATHEROSCLEROSIS [...] UNSPECIFIED 1 completed Not Available [facility] 09/27/2022 08:27:50 SARS-COV-2 (COVID-19) vaccine, UNSPECIFIED 1 completed Not Available [facility] 09/27/2022 08:27:50 Influenza, split virus, quadrivalent, preservative 2 completed Not Available [facility] 09/27/2022 08:27:51 Influenza, split virus, quadrivalent, preservative 0 completed Not Available [facility] 09/27/2022 08:27:51 Influenza, split virus, quadrivalent, preservative 9 completed Not Available [facility] 09/27/2022 08:27:51 Past Encounters Encounter ID Performer Location Encounter Start Date Encounter Closed Date Diagnosis/Indication Diagnosis SNOMED-CT Code Diagnosis ICD10 Code Diagnosis IMO Codes Diagnosis Note [id number] [facility] [place] [address] [place] [address] 10/06/2020 00:00:00 10/07/2020 17:14:00 [id number] [facility] [place] [address] [place] [address] 11/04/2020 00:00:00 11/04/2020 17:00:13 [id number] Michaela Val[address]a [address] [facility] [place] [address] [place] [address] 02/23/2021 00:00:00 02/23/2021 09:42:47 [id number] [address] [facility] [place] [address] [place] [address] 02/27/2022 00:00:00 02/27/2022 10:34:14 [id number] [facility] [place] [address] [place] [address] 05/08/2022 00:00:00 05/08/2022 12:56:29 [id number] [address] [facility] [place] [address] [place] [address] 09/13/2022 00:00:00 09/13/2022 10:28:20 [id number] [address] [facility] [place] [address] [place] [address] 09/18/2023 15:43:33 09/18/2023 17:08:16 Hypothyroidism 31804870 E03.9 Hyperlipidemia 09273055 E78.5 Anemia 904531187 D64.9 Hereditary hemochromatosis 54443287 E83.110 Hypertensive disorder 38 782557 I10 Health Concerns Section Related Observation LastModified by Organization Detai ls LastModified Time None Recorded Concern Status LastModified by Organization Details LastModified Time None Recorded Advance Directives Directive None Recorded Payers Insurance Date Sequence Insurance Name Policy Number Policy [place] Covered Member ID [place] Member ID Guarantor Name 12/18/2023 [facility] Sahara Cancino SELF SELF Sahara Cancino 12/18/2023 1 [facility] [id number] Sahara Cancino [id number] Sahara Cancino Notes Date Note Type Note Provider Name and Address Organization Details Recorded Time 09/18/2023 text/html ROS as noted in the HPI diagnosed with hemochromatosis GALE Ledezma [address] [facility] [address], [place], [address], [facility] 12/11/2023 14:30:12 OBGyn Episode No OBEpisode recorded.
--- OUTSIDE RECORDS SUMMARY | 2025-05-20 19:47 | XMS_ITS | Clinical Summary ---
Author Organization [facility] Address [address] [place] [address] Care Team Providers Care Portable Machine Sander Name Role Phone Nia Pickard Primary Care Provider + [phone] Allergies Active Allergy Reactions Criticality Noted Date [...] Active Problems No known active problems Immunizations Immunization Administration Dates Next Due MODERNA COVID-19 (12+) MRNA, LNP-S, PF, 100 MCG/ 0.5 ML DOSE 05/31/2021,10/09/2020,09/11/2020 MODERNA COVID-19 (PRIVATE WATCHMAN CATRACHITA GYPSY), MRNA, LNP-S, PF, 50 MCG/ 0.25 ML DOSE 11/07/2021 Tdap (Historical Only-select from Portapure) 02/17/2020 Family History Medical History Relation Comments [...] 9:57 AM CDT Height 172.7 cm (5' 8) 02/17/2020 9:57 AM CDT Body Mass Index 28.43 02/17/2020 9:57 AM CDT Plan of Treatment Health Maintenance Due Date Last Done Comments Colorectal Cancer Screening Colonoscopy (10 Years) 1961 Hepatitis C 1979 Pneumococcal Vaccine: 50+ Years (1 of 1 - PCV) 2011 Mammogram Screening 02/08/2019 02/08/2018, 02/01/2018, 01/16/2017, Additional history exists Annual Physical 02/16/2021 02/17/2020 Cervical Cancer Screening Pap with HPV Testing (Age 30 to 64) Every 5 Years 02/06/2022 02/06/2017, 02/01/2016, 01/25/2015, Additional history exists Cervical Cancer Screening Pap Smear (Age 30 to 64) Every 3 Years 02/16/2023 02/17/2020, 02/10/2019, 02/07/2018 Cervical Cancer Screening with HPV 02/16/2023 COVID-19 Vaccine ( season) 2025 11/07/2021, 05/31/2021, 10/09/2020, Additional history exists Influenza Adult (#1) 2025 05/05/2022, 05/05/2021, 04/14/2020, Additional history exists DTaP, Tdap and Td Vaccines (3 - Td or Tdap) 02/16/2030 02/17/2020, 04/19/2017 RSV Immunization or 60+ Years (1 - 1-dose 75+ series) 2036 Zoster Vaccines Completed 06/06/2022, 02/01/2022 Hepatitis A Vaccines Aged Out No long er eligible based on patient's age to complete this topic Meningococcal B Vaccine Aged Out No l [...] AM CDT) CLINICAL INFORMATION: Information not provided [facility] [employer] [place], [place] Clinical Information: INFORMATION NOT PROVIDED [facility] [place], [place] Date of Last Pap INFORMATION NOT PROVIDED [facility] [place] Previous Biopsy? INFORMATION NOT PROVIDED [facility] [place] SOURCE (QST) Information not provided [facility] [place] STATEMENT OF ADEQUACY: [facility] [employer] [place], [place] Comment: Satisfactory for evaluation. Endocervical/transformation zone component present. PAP INTERPRETATION/RESU LTS Negative for intraepithelial lesion or malignancy. 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 [address] COMMENT: [employer] [place], [place] Comment: EXPLANATORY NOTE: The Pap is [...] Agency Comment Performing Organization Information: Site ID: SL Name: [facility] Address: [facility] [place] [address] Director: Nany Subramanian us Nia BEASLEY PATHOLOGY/CYTOLOGY ORDERABLE S Final Result [employer] - KATHERINE ORD[place] [employer] [place] [address] [address] [place] [address], * MAMMOGRAM GENERIC (02/08/2018) Anatomical Region Laterality Modality Other 02/08/2018 Narrative 02/08/2018 Ordered by an unspecified provider. us Documents Scanned SCANNING Final Result * OUTSIDE CYTOPATH VAG/CERV PAP WITH HPV (02/06/2017) 02/06/2017 Narrative 02/06/2017 Ordered by an unspecified provider. us Documents Scanned SCANNING Final Result from Last 3 Months or Most Recently Relevant to Health Maintenance Insurance [employer] Care Teams Portable Machine Sander Relationship Specialty [place] [address] [place] [address] PCP - General PHYSICIAN MEDICAL OFFICE TECHNOLOGY INSTRUCTOR 02/17/20
--- OUTSIDE RECORDS SUMMARY | 2025-05-20 19:47 | XMS_ITS | Encounter Summary ---
Author Organization [facility] Address [address] [place] [address] Care Team Providers Care Biological Engineer Name Role Phone Neal Barger DO Primary Care Provider Neal Barger DO Primary Care Provider Miriam Laurent Primary Care Pr ovider Encounter Details Date Type Department Care Team (Late st Contact Info) Description 10/12/2016 Orders Only [facility] Provider, MD Haley [address] [place] [address] Social History Tobacco Use Types Packs/Day Years Used Date Smoking Tobacco: Never Assessed Alcohol Use Standard Drinks/Week Comments Yes 0 (1 standard drink = 0.6 oz pur e alcohol) Comments Unknown Sex and Gender Information Value Date Recorded Sex Assigned at Not on file 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
--- OUTSIDE RECORDS SUMMARY | 2025-05-20 19:47 | XMS_ITS | Clinical Summary ---
Author Organization [facility] Abimael Yo Address [facility] [place] [address] Care Team Providers Care Sales Recruiting Coordinator Name Role Phone Unavailable Primary Care Provider Unavailabl e Allergies Active Allergy Reactions Criticality Noted Date [...] Encounters Date Type Department Care Team Description 03/03/2025 External Device Data STL ABSTRACTION Provider, Abstract [...] Sign Reading Time Taken Comments Blood Pressure 139/81 11/05/2024 1:09 PM CDT Pulse 89 11/05/2024 1:09 PM CDT Temperature 36 C (96.8 F) 11/05/2024 1:09 PM CDT Respiratory Rate 16 11/05/2024 1:09 PM CDT Oxygen Saturation 98% 11/05/2024 1:09 PM CDT Inhaled Oxygen Concentration - - Weight 78.3 kg (172 lb 9.6 oz) 11/05/2024 1:09 P M CDT Height 170.2 cm (5' 7) 02/12/2023 1:07 PM CDT Body Mass Index 27.03 02/12/2023 1:07 PM CDT Plan of Treatment Upcoming Encounters Date Type Department Care Team (Late st Contact Info) Description 05/28/2025 4:30 PM CDT Telephone Check Up [facility] Oncology and Hematology - [place] [address] [place] [address] [facility] [address] [place] [address] Kip Mccarty MD [address] [facility] [place] [address] Health Maintenance Due Date Last Done Comments Pre-Diabetes and Diabetes Screening 1961 HPV/Cotest (21-29) 1982 HPV/Cotest (30-65) 1991 BREAST CANCER SCREENING 2001 COLORECTAL SCREENING 2006 Colorectal Cancer Screening 2006 FIT-DNA Q 3 years 2006 FIT/FOBT Q 1 year 2006 Flex Sig/CT Colonography Q 5 years 2006 ZOSTER VACCINE (1 of 2) 2011 Preventative Visit- Commercial 07/30/2024 09/05/2022 , 02/17/2020 INFLUENZA VACCINE (#1) 2025 04/28/2023 COVID-19 Vaccine (2024-2 6 season) 2025 11/07/2021, 05/31/2021, 10/09/2020, Additional history exists CERVICAL CANCER SCREENING 10/02/2027 PAP SMEAR 10/02/2027 10/01/2024, 08/30, 09/05/2022, Additional history exists DTAP/TDAP/TD VACCINES (2 - T d or Tdap) 02/16/2030 02/17/2020 RSV VACCINE (60+ or ) (1 - 1-dose 75+ series) 2036 Insurance [facility] [id number]
--- OUTSIDE RECORDS SUMMARY | 2025-05-20 19:47 | XMS_ITS | Data Portability ---
Author Organization [facility] Address [address] [place] [address] [place] [address] Care Team Providers Care Custody Officer Name Role Phone ENIDELIA WHITLEY Primary Care Provider DINA SANDOVAL Primary Care Provider [phone] Assessment Encounter Date Assessment Date Assessment LastModified [...] a year unless there are new symptoms. [email or web address] Not available 10/01/2024 17:09:17 Plan of Treatment Reminders Order Date Submit Date Provider Last Modified By Organization Details Last Modified Time Details Appointments None recorded. Lab None recorded. Referral None recorded. Procedures None recorded. Surgeries None recorded. Imaging MAMMO, diagnostic, digital, unilateral - Right breast lump noted at 5 o'clock position 2024 025 [facility], [address], [address] [place] [address], [place], [address], 12:10:10 MAMMO, screening, digital, bilateral 2023 024 [facility], [address], [place], [address], 4 17:47:44 Medication Orders None recorded. Patient [...] Repor t Case: [id number] Autho velia joe Provi eleni: Maria Guadalupe Steele, JAYANT [...] was confi rmed by an addit ional dieter ner. FINAL DIAGN OSIS: Negat jess for Intra epith elial Lesio n or Kathy olsen (NIL) . Too mccarty shun d by Mari Sánchez ret, [...] s: LMP (if appli cable ): Clini ojhn Histo ry/Pr eviou s Pap: Type of [...] is recom abby d, as clini larry warra nted. Not Available [facility] (Lab) [address], [place], [address], 09/07/2022 15:23:07 09/14/19 24 09/14/2023 IMAGE GUIDE D PAP AND HPV REGAR DLESS image guided Pap, HPV regardless of Pap result SEE RESULT S BELOW CASE REPOR T: Cytol ogy Gynec ologi john Repor t Case: [id number] Autho velia g Provi eleni: Maria Guadalupe Steele, TOP KNITTER Colle cted: 09/14 1403 Order ing Locat ion: [place] [facility] Recei chip: 09/17 0736 First Scree n: [...] . Atrop hic cell naldo kiser. Elect perla mccarty shun d by Fatimah Enciso, CT on [...] lesio n and sampl ing techn ique. Bna nued regul ar scree álvaro is the best metho d of cance r preve ntion . If repor jeremiah cytol ogic findi ng do not corre late with physi john and/o r histo rical findi ngs, furth er inves tigat ion is recom abby d, as clini larry willoughby nted. Not Available [facility] (Lab) [address], [place], [address], 09/20/2023 08:46:55 10/02/19 25 10/01/2024 IMAGE GUIDE D PAP AND HPV REGAR DLESS image guided Pap, HPV regardless of Pap result SEE RESULT S BELOW CASE REPOR T: Cytol ogy Gynec ologi john Repor t Case: [id number] Autho velia g Provi eleni: Maria Guadalupe Steele NP Colle cted: 10/01 1706 Order ing Locat [...] . Atrop hic cell naldo kiser. 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 Not Available [facility] (Lab) [address], [place], [address], 10/05/2024 03:36:35 12/27/19 24 12/27/2023 MAMMO , scree álvaro, digit al, bilat eral No observ ation record ed. [facility] [address], [place], [address], 01/03/2024 11:18:28 08/22/19 25 08/22/2024 MAMMO , diagn ostic , digit al, unila teral No observ ation record ed. [facility] [address], [place], [address], 08/25/2024 17:50:27 12/31/19 25 12/29/2024 MAMMO , scree álvaro, digit al, bilat eral No observ ation record ed. [facility] [address], [place], [address], 01/01/2025 19:09:28 Result Notes None recorded. Problems Name Problem SNOMED Code Status Onset Date Resolution Date Notes Provider Name and Address Organization Details Recorded Time Screening for malignant neoplasm of colon Active 2010 Special screening for malignant neoplasms, colon;Prac christina ID: 0001 Not Available [facility] 0 18:04:29 Screening for malignant neoplasm of cervix Active 2011 Screening for malignant neoplasms of the cervix;Rec orded Elsewhere: No Locatio n: [facility] rce: EHR Chroni c: N Practice ID: 0001 Billa ble Time: 10:00:00 AM Not Available [facility] 0 18:04:27 Menopausa l symptom 65750644 Active 2011 Menopausal or female climacteri c states;Rec orded Elsewhere: No Locatio n: [facility] rce: EHR Chroni c: N Practice ID: 0001 Billa ble Time: 02:00:00 PM Not Available [facility] 0 18:04:28 Vaginitis and vulvovagi nitis Active 2011 Vaginitis; Recorded Elsewhere: No Locatio n: [facility] rce: EHR Chroni c: N Practice ID: 0001 Billa ble Time: 02:45:00 PM Not Available [facility] 0 18:04:27 Postmenop ausal bleeding 89525011 Active 2011 Postmenopa usal bleeding;R ecorded Elsewhere: No Locatio n: [facility] rce: EHR Chroni c: N Practice ID: 0001 Billa ble Time: 02:30:00 PM Not Available [facility] 0 18:04:27 Neoplasti c disease of uncertain behavior 987722367 Active 2011 Neoplasm of uncertain behavior, site unspecifie d;Recorded Elsewhere: No Locatio n: [facility] rce: EHR Chroni c: N Practice ID: 0001 Billa ble Time: 10:00:00 AM Not Available [facility] 0 18:04:27 Satisfact ory for evaluatio n but limited by absence of an endocervi john/trans formation zone component from a patient with a cervix 670930496 Active 2011 SAT CERV SMR-NO TRNSFRM;Re corded Elsewhere: No Locatio n: [facility] rce: EHR Chroni c: Y Practice ID: 0001 Billa ble Time: 11:00:00 AM Not Available [facility] 0 18:04:28 Abnormal cervical Papanicol aou smear 944268094 Active 2011 SAT CERV SMR-NO TRNSFRM;Re corded Elsewhere: No Locatio n: [facility] rce: EHR Chroni c: Y Practice ID: 0001 Billa ble Time: 11:00:00 AM Not Available [facility] 0 18:04:28 test negative 181365311 Active 2011 Negative Test;Pract ice ID: 0001 Not Available [facility] 0 18:04:30 Dysfuncti onal uterine bleeding Active 2011 Other disorders of menstruati on and other abnormal bleeding from female genital tract;Joshua rded Elsewhere: No Locatio n: [facility] rce: EHR Chroni c: N Practice ID: 0001 Billa ble Time: 04:45:00 PM Not Available [facility] 0 18:04:28 Cyst of ovary 81038621 Active 2012 Other and unspecifie d ovarian cyst;Recor ded Elsewhere: No Locatio n: [facility] rce: EHR Chroni c: N Practice ID: 0001 Billa ble Time: 09:00:00 AM Not Available [facility] 0 18:04:28 Overweigh t 572173101 Active 2013 Overweight ;Recorded Elsewhere: No Locatio n: [facility] rce: EHR Chroni c: N Practice ID: 0001 Billa ble Time: 02:00:00 PM Not Available [facility] 0 18:04:27 Abnormal cervical Papanicol aou smear with 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 930188999 Active 2013 Cervical high risk human papillomav irus (HPV) DNA test positive;R ecorded Elsewhere: No Locatio n: [facility] rce: EHR Chroni c: N Practice ID: 0001 Billa ble Time: 02:00:00 PM Not Available [facility] 0 18:04:28 Atypical glandular cells on cervical Papanicol aou smear 090590895 Active 2014 Abnormal glandular Papanicola ou smear of cervix;Rec orded Elsewhere: No Locatio n: [facility] rce: EHR Chroni c: N Practice ID: 0001 Billa ble Time: 01:00:00 PM Not Available [facility] 0 18:04:27 Specializ ed medical examinati on Active 2014 Gynecologi john Examinatio n;Recorded Elsewhere: No Locatio n: [facility] rce: EHR Chroni c: N Practice ID: 0001 Billa ble Time: 10:00:00 AM Not Available [facility] 0 18:04:27 Adult health examinati on Active 2014 ROUTINE MEDICAL EXAM;Recor ded Elsewhere: No Locatio n: [facility] rce: EHR Chroni c: N Practice ID: 0001 Billa ble Time: 10:00:00 AM Not Available [facility] 0 18:04:28 Urinary tract infectiou s disease 60428215 Active 2014 UTI;Record ed Elsewhere: No Locatio n: [facility] rce: EHR Chroni c: N Practice ID: 0001 Billa ble Time: 10:00:00 AM Not Available [facility] 0 18:04:29 Microscop ic hematuria 636939012 Active 2015 Other microscopi c hematuria; Recorded Elsewhere: No Locatio n: [facility] rce: EHR Chroni c: N Practice ID: 0001 Billa ble Time: 10:30:00 AM Not Available [facility] 0 18:04:[address] Concept Active 2015 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) w/o abn findings;R ecorded Elsewhere: No Locatio n: [facility] rce: EHR Chroni c: N Practice ID: 0001 Billa ble Time: 10:30:00 AM Not Available [facility] 0 18:04:27 Evaluatio n finding Active 2017 Oth abn and inconclusi ve findings on dx imaging of breast;Rec orded Elsewhere: No Locatio n: [facility] rce: EHR Chroni c: N Practice ID: 0001 Billa ble Time: 10:22:40 AM Not Available [facility] 0 18:04:28 Screening for malignant neoplasm of rectum Active 2018 Encounter for screening for malignant neoplasm of rectum;Rec orded Elsewhere: No Locatio n: [facility] rce: EHR Chroni c: N Practice ID: 0001 Billa ble Time: 10:30:00 AM Not Available [facility] 0 18:04:[address] Concept Active 2018 Encntr for general adult medical exam w/o abnormal findings;R ecorded Elsewhere: No Locatio n: [facility] rce: EHR Chroni c: N Practice ID: 0001 Billa ble Time: 10:30:00 AM Not Available [facility] 0 18:04:27 Evaluatio n finding Active 2018 Hematuria, unspecifie d;Recorded Elsewhere: No Locatio n: [facility] rce: EHR Chroni c: N Practice ID: 0001 Billa ble Time: 10:30:00 AM Not Available [facility] 0 18:04:27 Problem Notes None recorded. Procedures Surgical History Date Name Laterality Status Provider Name and Address Organization Details Recorded Time 12/27/19 24 Date of Last Mammogram completed [facility] 08/12/2024 17:04:01 09/14/19 24 Date of Last Pap Smear completed Naty Boateng [facility] 09/14/2023 11:01:27 01/23/20 20 Date of Last Colonoscopy completed [facility] 08/12/2024 17:04:01 04/15/19 89 Caesarean Section completed [facility] 09/05/2022 16:56:55 06/26/19 87 Caesarean Section completed [facility] 09/05/2022 16:56:[address] [facility] 09/05/2022 16:56:[address] [facility] 09/05/2022 16:56:55 cardiac radiofrequency ablation using ultrasound guidance completed RUPALI Carvajal [address], [place], [address], [facility] 09/05/2022 17:20:05 [facility]es[facility] 09/14/2023 10:59:46 Imaging Results None recorded. Procedure Notes None recorded. Medical Equipment None Reported. Allergies Allergen ID Allergen Name Allergen Category Reaction Reaction Severity Criticality Documentation Date Start Date Code Code System Note Provider Name and Address Organization Details Recorded Time 93467 Substance with sulfonami de structure and antibacte rial mechanism of action (substanc e) medicatio n Not available Not available Not available 07/16/2020 58174 8003 SNOMED Comme nt: [facility]at [facility]; Not Available [facility] 0 14:20:57 Medications Name Sig Start [...] Prescrib ed Elsewher e: Yes Loca tion: [facility] odify By: chris rehman DateTime : 01/05/20 12 10:00:00 AM Not Available Not Available Not Available Monistat 7 2 % vaginal cream insert 1 applicat orful by vaginal route every day at bedtime 06/06 completed Prescrib ed Elsewher e: No Locat ion: [facility] odify By: ngoc rehman DateTime : [...] Elsewher e: Yes Loca tion: [facility] odify By: niesha babcock DateTime : 02/11/20 19 10:30:00 AM Not Available Not Available Not Available aspirin 500 mg tablet take 2 tablet by oral route every 6 hours as needed 01/31 completed Prescrib ed Elsewher e: Yes Loca tion: [facility] odify By: sreedhar babcock DateTime : [...] Elsewher e: No Locat ion: [facility] odify By: sreedhar babcock DateTime : 01/26/20 15 10:00:00 AM Not Available Not Available Not Available lisinopri l 10 mg tablet 1 mg every day by oral route. active Not Available Not Available No t Available Calcium-6 00 600 mg (as calcium carbonate 1,500 mg) tablet 01/22 completed Prescrib ed Elsewher e: Yes Loca tion: [facility] odify By: chris rehman DateTime : [...] Elsewher e: Yes Loca tion: [facility] odify By: arnaldo aguilar DateTime : 01/04/20 12 10:41:43 PM Not Available Not Available Not Available lisinopri l 2.5 mg tablet take 1 tablet by oral route every day 09/05 completed Prescrib ed Elsewher e: Yes Loca tion: [facility] odify By: juanita rehman DateTime : [...] Not Available Not Available Not Available Norethind sctot/Ethi n Estradiol 0.5 mg-35 mcg tablet Take 1 tablet every day by oral route. 09/14 completed Not Available Not Available Not Available Prempro 0.45 mg-1.5 mg tablet TAKE 1 TABLET DAILY 08/31 completed Prescrib ed Elsewher e: No Locat ion: [facility] odify By: char rehman DateTime : 03/25/20 08:43:48 AM Not Available [...] Prescrib ed Elsewher e: No [facility]ify By: char rehman DateTime : 02/01/20 16 10:30:00 AM Not Available Not Available Not Available Fiber (psyllium husk) 0.52 gram capsule 01/25 completed Prescrib ed Elsewher e: Yes Loca tion: [facility] odify By: cmedical Encount er DateTime : 01/05/20 12 10:00:00 AM Not Available Not Available Not Available CoQ10 active Not Available Not Availa ble Not Available [place] 3 Fish Oil active Not Available Not Available Not Available meloxicam 7.5 mg/5 mL oral suspensio n take 5 millilit er by oral route every day 06/06 completed Prescrib ed Elsewher e: Yes Loca tion: [facility] odify By: ngoc rehman DateTime : 01/05/20 12 10:00:00 AM Not Available Not Available Not Available simvastat in (bulk) 09/05 completed Not Available Not Available Not Available Activella 0.5 mg-0.1 mg tablet take 1 tablet by oral route every day 01/14 completed Prescrib ed Elsewher e: No Locat ion: [facility] odify By: portia Junior ncounter DateTime : 01/15/20 12 02:00:00 PM Not Available Not Available Not Available Omnaris 50 mcg nasal spray spray 2 spray by intranas al route every day in each nostril 01/04 completed Prescrib ed Elsewher e: Yes Loca tion: [facility] odify By: juanita rehman DateTime : 01/04/20 12 10:41:43 PM Not Available Not Available Not Available B12 active Not Available Not Availa ble Not Available Lo Loestrin Fe 1 mg-10 mcg (24)/10 mcg (2) tablet TAKE 1 TABLET BY ORAL ROUTE EVERY DAY 01/31 completed Prescrib ed Elsewher e: No Locat ion: [facility] odify By: sreedhar Junior ncounter DateTime : 12/24/19 14 03:31:09 PM Not Available Not Available Not Available Fish Oil 120 mg-180 mg-500 mg capsule 01/22 completed Prescrib ed Elsewher e: Yes Loca tion: [facility] odify By: chris rehman DateTime : [...] Body mass index (BMI) Body weight Systolic And Diastolic Provider Name and Address Organization Details Last Updated DateTime 08/12/2024 168.91 cm 28.2 kg/m2 99284.29 g 140/84 mm[Hg] Huong Isaacs [facility] 08/12/2024 17:08:47 Date Recorded Body height Body mass index (BMI) Body weight Systolic And Diastolic Provider Name and Address Organization Details Last Updated DateTime 09/05/2022 168.91 cm 27.9 kg/m2 22178.1 g 136/89 mm[Hg] Martha Gasca [facility] 09/05/2022 16:56:46 Date Recorded Body weight Systolic And Diastolic Provider Name and Address Organization Details Last Updated DateTime 09/14/2023 56378.22 g 130/85 mm[Hg] Naty Boateng [facility] 09/14/2023 10:59:27 Date Recorded Body height Body mass index (BMI) Body weight Systolic And Diastolic Systolic And Diastolic Provider Name and Address Organization Details Last Updated DateTime 10/01/2024 168.91 cm 27.8 kg/m2 26451.66 g 149/84 mm[Hg] 150/90 mm[Hg] ZOFIA Patel [facility] 17:13:37 Social History Question Answer Notes LastModified by Organizat ion Details LastModified Time Tobacco Smoking Status Never Smoker Martha Gasca [facility], [facility] 09/05/2022 17:01:35 Do You Have An Advance Directive? No [email or web address] Information n ot available 08/12/2024 Are You Blind Or Do You Have [...] Or The Highest Degree You Have Received? [id number] Information not available 09/14/2023 Are There Any [...] IV Drugs? No Information not available 09/14/2023 Do You Have Difficulty Walking Or Climbing Stairs? No Information not available 09/05/2022 Sex: Unknown Functional Status Question Answer Note LastModified by Organizat ion Details LastModified Time Do you use any illicit or recreational drugs? No Information not available 09/14/2023 What is your level of alcohol consumption? None Information not available 09/05/2022 Are you able to walk independently without assistance or assistive devices? YESWOREST Information not available 09/05/2022 Are you able to care for yourself independently? 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 No Information not available 09/05/2022 What is your exercise level? Moderate Information not available 09/14/2023 Mental Status Question Answer Note LastModified by Organization D etails LastModified Time Do you feel stressed (tense, restless, nervous, or anxious, or unable to sleep at night)? [id number] [email or web address] Information not available 09/14/2023 Family History Relationship Description Onset Age of this Age Resolved Age Notes LastModified by Organization Details LastModified Time Paternal Grandmother Malignant neoplastic disease [email or web address] Not available 2024 17:04:00 Mother Disorder of thyroid gland [email or web address] Not available 2024 17:04:00 Mother Hypertensive disorder [email or web address] Not available 2024 17:04:00 Daughter Disorder of thyroid gland [email or web address] Not available 2024 17:04:00 Daughter Anxiety disorder [email or web address] Not available 2024 17:04:00 Sister Disorder of thyroid gland [email or web address] Not available 2024 17:04:00 Sister Hypertensive disorder [email or web address] Not available 2024 17:04:00 Father Malignant neoplastic disease [email or web address] Not available 2024 17:04:00 Father Hypertensive disorder Not available 2024 17:04:00 Notes:Father: Parkinson's di sease, Hypertension Maternal grandfather: Cancer, lung Mother: Thyroid disease, Hypertension Paternal grandfather: Stroke Paternal grandmother: Cancer, lung Sister: Thyroid disease Medical History Condition Response Allergies (Food, seasonal, environmental ) N Other Y Breast Cancer N Blood Transfusion N Drug/Latex Allergies/Reactions N Dermatologic Disorders N Lung Disease N Defects or Inherited Disease N Breast Problem N Gestational Diabetes N Hematologic disorders Y Anesthesia Complications N History of STI N Deep Vein Thrombosis N Polycystic ovary syndrome N Anxiety Disorder N Autoimmune disease N Arthritis N Polyps N Infertility N Acid Reflux (GERD) N History of abnormal pap N Cancer N Varicosities N Stroke N Neurologic/Epilepsy N Endometriosis N High Cholesterol Y Fibromyalgia N Headaches N Kidney Disease N Heart Problems Y Thyroid Problems Y Kidney or Bladder Problems N GI Problems N Eating Disorder N Anemia [...] ICD10 Code Diagnosis IMO Codes Diagnosis Note [id number] RUPALI Carvajal [place] [address] [address] 09/05/2022 16:41:43 09/05/2022 17:37:04 Gynecologic examination 35795804 Z01.419 Take Calcium with Vitamin D 12-1500mg daily. Do monthly self breast exams. It is advised to get annual flu shot in the fall and she could obtain at [facility] or [facility] care clinic. If you haven't received the Tdap [...] in 1 year or sooner if needed [id number] RUPALI Carvajal [place] [address] [address] 09/14/2023 10:52:09 09/14/2023 11:51:42 Gynecologic examination 49633618 Z01.419 WWEpap updateddec lined STI screeningm ammogram order givencolon oscopy UTDdexa due 2024routin e labs UTDRTC in 1 yr or sooner if needed Take Calcium with Vitamin D daily. Do monthly self breast exams. It is advised to get annual flu shot in the fall and she could obtain at [facility] or [facility] care clinic. If you haven't received the Tdap [...] time Screening for malignant neoplasm of breast 263842622 Z12.39 [id number] Kit Nye MD [place] [address] [address] 08/12/2024 17:01:42 08/12/2024 17:30:17 Mass of right breast 5529173795 8278225 N63.10 We discussed her breast exam findings and pt is counseled. Questions answered.I maging: Diagnostic mammogram of right breast with u/s ordered to further evaluate right breast mass. Order given, pt to call and schedule mammogram. Patient to continue to perform self-breas t exams and report any changes.FU for WWE on/after 09/14/24. [id number] RUPALI Carvajal [place] [address] [address] 10/01/2024 16:58:35 10/02/2024 11:16:05 Gynecologic examination 95783040 Z01.419 WWEpostmen opausalPap - done today per [...] None Recorded Advance Directives Directive N: Payers Insurance Date Sequence Insurance Name Policy Number Policy [place] Covered Member ID [place] Member ID Guarantor Name 01/16/2025 1 [facility] [id number] Sahara Cancino [id number] Sahara Cancino Notes Date Note Type Note Provider Name and Address Organization Details Recorded Time 3 text/html Annual Hr Coordinator Post-MenopausalReported by PatientGenitourinary symptomsFor menopausal symptoms, patient reportsno menopausal symptomsandnormal vaginal lubrication. For vaginal bleeding, patient reportshistory of menopause having occurredandno history of post menopausal bleeding. For urinary symptoms, patient reportsno hematuria,no incontinence,no nocturia, andno urinary frequency. For vulva, patient reportsno genital lesionandno vulvar atrophy. For vagina, patient reportsnormal vaginal dischargeandno vaginal atrophy.Breast symptomsFor breast, patient reportsno breast lump,no nipple discharge, andno breast pain.Psychological symptomsFor sexual complaints, patient reportsno sexual complaints. For psychological symptoms, patient reportsno depressionandno anxiety.Preventative measuresFor preventive measures, patient reportsencourage regular mammograms starting age 40,encourage self breast examination,encourage regular exercise,encourage no tobacco use,mammogram performed within the past year, andhistory of recent colonoscopy. RUPALI Carvajal [address], [place], [address], [facility] 09/05/2022 17:34:42 4 text/html Annual Hr Coordinator Post-MenopausalReported by PatientGenitourinary symptomsFor menopausal symptoms, patient reportsno menopausal symptomsandnormal vaginal lubrication. For vaginal bleeding, patient reportshistory of menopause having occurredandno history of post menopausal bleeding. For urinary symptoms, patient reportsno hematuria,no incontinence,no nocturia, andno urinary frequency. For vulva, patient reportsno genital lesionandno vulvar atrophy. For vagina, patient reportsnormal vaginal dischargeandno vaginal atrophy.Breast symptomsFor breast, patient reportsno breast lump,no nipple discharge, andno breast pain.Psychological symptomsFor sexual complaints, patient reportsno sexual complaints. For psychological symptoms, patient reportsno depressionandno anxiety.Preventative measuresFor preventive measures, patient reportsencourage regular mammograms starting age 40,encourage self breast examination,encourage regular exercise,encourage no tobacco use,needs to schedule mammogram,history of recent colonoscopy, andneeds to schedule bone density.h/o LEEP 30 years agolast abnormal pap 2014pap done 08/2022 normalmammogram 1 yr agocolonoscopy UTDdexa done 2021 - normal per pt has some vaginal dryness RUPALI Carvajal [address], [place], [address], [facility] 09/14/2023 11:50:22 5 text/html Patient here [...] breasts and belt-line that was prescribed by manager of health for skin irritation r/t friction caused by bras/underwear. SAGAR CAMARA NP [address], [place], [address], [facility] 08/12/2024 17:29:29 5 text/html Annual Hr Coordinator Post-MenopausalReported by PatientGenitourinary symptomsFor menopausal symptoms, patient reportsno menopausal symptomsandnormal vaginal lubrication. For vaginal bleeding, patient reportshistory of menopause having occurredandno history of post menopausal bleeding. For urinary symptoms, patient reportsno hematuria,no incontinence,no nocturia, andno urinary frequency. For vulva, patient reportsno genital lesionandno vulvar atrophy. For vagina, patient reportsnormal vaginal dischargeandno vaginal atrophy.Breast symptomsFor breast, patient reportsno breast lump,no nipple discharge, andno breast pain.Psychological symptomsFor sexual complaints, patient reportsno sexual complaints. For psychological symptoms, patient reportsno depressionandno anxiety.Preventative measuresFor preventive measures, patient reportsencourage regular mammograms starting age 40,encourage self breast examination,encourage regular exercise,encourage no tobacco use, andmammogram performed within the past year.64yo wwepostmenopausallast pap 09/14/2023 : nilm, HPV (-)h/o abnormal pap last 2013dexa UTD/PCPmammogram UTDcolonoscopy UTD/PCP RUPALI Carvajal [address], [place], [address], [facility] 10/02/2024 11:01:46 OBGyn Episode Ob Episode Information Episode Created Date Number of Fetuses Patient Bloodtype Patient rh Status Prepregnancy Weight lbs Domestic Partner Domestic Partner Phone Father Name Line Locator Status 09/05/19 23 1 CLOSED Fetus Data First Name Last Name Admitted to NICU Weight (g) Sex Living Outcome Pediatric Complications Fetus ID Race Codes Race Delivery Type 1502.29 6704 F Prematur e [id number] Primary Carlo Calculation Initial Carlo Date Initial [...] Domestic Partner Domestic Partner Phone Father Name Line Locator Status 09/05/19 23 1 CLOSED Fetus Data First Name Last Name Admitted to NICU Weight (g) Sex Living Outcome Pediatric Complications Fetus ID Race Codes Race Delivery Type 3798.83 3 F Full Term 52869 Repeat Carlo Calculation Initial Carlo Date Initial [...]
--- OUTSIDE RECORDS SUMMARY | 2025-05-20 19:47 | XMS_ITS | Clinical Summary ---
Author Organization [facility] [address] [place] Address [address] [place] [id number] Care Team Providers Care Station Usher Name Role Phone Miriam Laurent Primary Care Pr ovider Allergies Active Allergy Reactions Criticality Noted Date Comments Sulfa (Sulfonamide Antibiotics) Hives,Other (See comments),Shortness of breath High 06/09/2022 Sulfamethoxazole-Trimethop rim Itching Low 02/17/2020 Medications simvastatin (ZOCOR) 20 mg tablet take 1 tablet by oral route every day in the evening 0 0 4 Active Additional Information Patient not taking.Reported on 02/17/2025 lisinopril (PRINIVIL,ZESTRI L) 5 mg tablet take 1 tablet by oral route every day 0 0 4 Active Additional Information Patient taking differently: 10 mg oral Daily, Reported on 02/17/2025 mometasone (NASONEX) 50 mcg/actuation nasal spray spray 2 spray by intranasal route every day in each nostril 0 spray 0 7 Active coenzyme Q10 (CO Q-10) 100 mg capsule take 1 by Oral route once 0 0 7 Active metoprolol (LOPRESSOR) 25 mg tablet take 1 tablet by oral route every day as needed 60 1 4 Active Additional Information Patient not taking.Reported on 02/17/2025 chromium-brindal hare (APPETITE CONTROL) 200-500 mcg-mg tablet 0 3 Active aspirin (ASPIRIN LOW DOSE) 81 mg tablet take 1 tablet (81MG) by oral route every day 0 3 Active Additional Information Patient not taking.Reported on 02/17/2025 glucosamine-rosa droit-vit C-Mn (GLUCOSAMINE CHONDROITIN MAXSTR) 500-400 mg capsule take 2 Capsule by Oral route every day 0 3 Active Additional Information Patient not taking.Reported on 02/17/2025 lisinopril (PRINIVIL,ZESTRI L) 5 mg tablet take 1 tablet (5MG) by oral route every day 0 3 Active Additional Information Patient taking differently: 10 mg, Reported on 02/17/2025 methylcellulose, laxative, (FIBER THERAPY, M-CELLULOSE,) 500 mg tablet 500 mg. 0 3 Active Additional Information Patient not taking.Reported on 02/17/2025 simvastatin (ZOCOR) 20 mg tablet take 1 tablet (20MG) by oral route every day at bedtime 0 3 Active collagenase (SANTYL) ointment 0 3 Active Additional Information Patient not taking.Reported on 02/17/2025 cyanocobalamin (Vitamin B-12) 250 mcg tablet Take 2,000 tablets (500,000 mcg total) by mouth daily Active ascorbic acid (VITAMIN C) 100 mg tablet Take 1 tablet (100 mg total) by mouth daily Active fish,bora,flax oils-om3,6,9no1 ([place]ple [place] 3-6-9) 400-400-400 mg capsule 1 Active benzonatate (TESSALON) 100 mg capsuleIndicatio ns:Cough Take 1 capsule (100 mg total) by mouth 3 (three) times a day as needed for cough 21 capsule 4 Active Additional Information Patient not taking.Reported on 02/17/2025 EPINEPHrine 0.3 mg/0.3 mL auto-injection syringe as directed Active estrogens, conjugated,-medr oxyPROGESTERone (PREMPRO) 0.45-1.5 mg per tablet Take 1 tablet by mouth daily 1 Active sodium, potassium & mag sulfates (SUPREP BOWEL KIT) 17.5-3.13-1.6 gram recon soln MIX AND DRINK UTD Active omega-3 fatty acids-fish oil 300-1,000 mg capsule Take by mouth daily Active levothyroxine (Synthroid) 75 mcg tablet Take 1 tablet (75 mcg total) by mouth daily Active ipratropium (ATROVENT) 21 mcg (0.03 %) nasal spray Administer into each nostril 3 (three) times a day Active fluorouraciL (EFUDEX) 5 % cream Active ferrous sulfate ER 324 mg (65 mg iron) EC tablet Take 1 tablet (324 mg total) by mouth daily Active Active Problems Problem Noted Date Diagnosed Date Overweight 01/25/2025 Benign essential hypertension 01/15/2024 Thyroid nodule 01/15/2024 Overweight with body mass index (BMI) 25.0-29.9 01/15/2024 Hemochromatosis 09/17/2023 Anemia 11/14/2020 Low ferritin level 05/30/2020 Hyperlipidemia 02/18/2019 Hypertensive disorder 02/18/2019 Hypothyroidism 02/18/2019 Encounters Date Type Department Care Team Description 02/17/2025 10:30 AM CDT Office Visit [facility] at [address] [id number] Kalpana Ji NP Bacterial conjunctivitis of left eye (Primary Dx) from Last 3 Months Surgical History Surgery Date Site/Laterality Comments SECTION 1986 Caesarean Section SECTION 1988 Caesarean Section Medical History Medical History Date Comments Delivered by section Ce sarean delivery; Comments: B[place] 04/02/2014 - Family History Medical History Relation [...] on file 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 Gender Identity Not on file Sexual Orientation Not on file Obstetrics History Last Filed Vital Signs Vital Sign Reading Time Taken Comments Blood Pressure 132/66 02/17/2025 10:22 AM CDT Pulse 82 02/17/2025 10:22 AM CDT Temperature 36.2 C (97.2 F) 02/17/2025 10:22 AM CDT Respiratory Rate 21 02/17/2025 10:22 AM CDT Oxygen Saturation 97% 02/17/2025 10:22 AM CDT Inhaled Oxygen Concentration - - Weight 81.6 kg (180 lb) 02/17/2025 10:22 AM CDT Height 170.2 cm (5' 7) 02/17/2025 10:22 AM CDT Body Mass Index 28.19 02/17/2025 10:22 AM CDT Plan of Treatment Health Maintenance Due Date Last Done Comments Breast Cancer Screening-Mammogram 1961 Colon Cancer Screening-Colonoscopy 1961 Depression Screening 1961 Hepatitis C Screening 1961 Hepatitis B Screening 1979 Regular Well Visit/Exam 18-64 1979 Cervical Cancer Screening 02/16/2021 02/17/2020 Covid-19 Vaccine (7 - Moderna risk season) 2025 05/29/2024, 06/30/2023, 11/07/2021, Additional history exists Influenza Vaccine (#1) 2025 , 04/28/2023, 05/05/2022, Additional history exists DTaP/Tdap/Td Vaccine (3 - Td or Tdap) 02/16/2030 02/17/2020, 04/19/2017 Zoster Vaccine Completed 06/06/2022, 02/01/2022 Pneumococcal vaccine <65 Aged Out No longer eligible based on patient's age to complete this topic Insurance [facility] PL[facility] Care Teams Station Usher Relationship Specialty Start Date End Date Miriam Laurent PA [address] [place] [address] PCP - General Physician Residential Roofer 07/24/24
--- OUTSIDE RECORDS SUMMARY | 2025-05-20 19:47 | XMS_ITS | Data Portability ---
Author Organization [facility] Address [address] [place] [address] Care Team Providers Care Offal Separator Name Role Phone MIRIAM LAURENT Primary Care Provider Unavailab le Assessment Encounter Date Assessment Date Assessment LastModified by Organization Details LastModified Time 01/15/2024 01/15/2024 Mammogram end of november normal pap smear 2022-- Dr. Steele Eye exam: Dr. Milligan. UTD Dental visit: [facility] Colon[facility]: Dr. Vuong: every 5 years at first for polyps. f/u 10 years. she is 5 years or less in. Not available 01/15/2024 10:35:23 01/14/2025 01/14/2025 Mammogram end of november normal pap smear 2022-- Dr. Steele Eye exam: Dr. Milligan. NVD Dental visit: UTD at [facility] Colonoscopy: Dr. Vuong: every 5 years at first for polyps. f/u 10 years. she is 5 years or less in. Not available 01/14/2025 10:08:08 Plan of Treatment Reminders Order Date Submit Date Provider Last Modified By Organization Details Last Modified Time Details Appointments ANY 15 2025 08:30A M GALE Dalal Not available Not available Not available Lab CBC w/ auto diff 2024 025 [email or web address], [address], [place], [address], 01/27/2025 12:38:07 CMP, serum or plasma 2024 025 [facility], [address], [place], [address], 01/27/2025 12:38:11 vitamin B12 + folate, serum or blood 2024 025 [facility] [employer] [facility], [address], [place], [address], 01/27/2025 12:38:16 HbA1c (hemoglob in A1c), blood 2024 025 [facility], [address], [place], [address], 01/27/2025 12:38:22 TSH + free T4, serum 2024 025 [facility], [address], [place], [address], 01/19/2025 09:55:33 T3, free, serum or plasma 2024 025 [facility], [address], [place], [address], 01/27/2025 12:38:01 lipid panel, serum 2024 025 [facility], [address], [place], [address], 01/27/2025 12:37:50 CMP, serum or plasma 2023 024 [facility], [address] [place], [address], 01/29/2024 17:41:53 vitamin B12 + folate, serum or blood 2023 024 [facility], [address], [place], [address], 01/28/2024 14:08:43 lipid panel, serum 2023 024 [facility], [address], [place], [address], 01/29/2024 17:37:24 HbA1c (hemoglob in A1c), blood 2023 024 [facility], [address], [place], [address], 01/29/2024 17:38:00 TSH + free T4, serum 2023 024 [facility], [address], [place], [address], 01/29/2024 17:37:09 T3, free, serum or plasma 2023 024 [facility], [address], [place], [address], 01/29/2024 17:38:31 Referral otolaryng ologist referral 2023 024 [facility], [address], [place], [address], 01/29/2024 17:42:25 Procedures None recorded. Surgeries None recorded. Imaging US, thyroid 2024 025 [facility], [address] [facility] , [address], [place], [address], 01/19/2025 08:50:02 US, thyroid 2023 024 LAURIE Not available 01/25/2024 10:51:11 Medication Orders None recorded. Patient TargetsNo targets recorded. 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 [facility] [address], [place], [address], 12/29/2023 09:57:35 01/25/20 24 01/25/2024 US, thyro id No observ ation record ed. [facility] [address] [place], [address], 01/28/2024 14:01:31 03/21/20 24 03/20/2024 CT, neck, soft tissu e, w/ contr ast No observ ation record ed. [email or web address] [address], [place], [address], 03/21/2024 18:42:07 08/22/19 25 08/22/2024 MAMMO , diagn ostic , bilat eral No observ ation record ed. [email or web address] [address], [place], [address], 08/22/2024 13:36:41 12/31/19 25 12/29/2024 MAMMO , scree álvaro, digit al, bilat eral No observ ation record ed. [facility] [address], [place], [address], 01/21/2025 11:14:40 01/20/20 25 01/16/2025 US, thyro id No observ ation record ed. [facility] [address] [place] [address] [address], [place], [address], 01/21/2025 11:15:33 Result Notes None recorded. Problems Name Problem SNOMED Code Status Onset Date Resolution Date Notes Provider Name and Address Organization Details Recorded Time Body mass index 25-29 - overweight 648756900 Active 2023 GALE Dalal Attn: Accountin g,[address], [place], [address], [place] [facility] 4 10:38:58 Long-term drug therapy Active 2023 GALE Dalal Attn: Accountin g,[address], [place], [address], [place] [facility] 4 10:38:59 Hemochromatosi s 548110786 Active 2023 GALE Dalal Attn: Accountin g,[address], [place], [address], [place] [facility] 4 10:39:01 Thyroid nodule 183397965 Active 2023 GALE Dalal Attn: Accountin g,[address] , [place], [address], [place] [facility] 4 10:39:03 Benign essential hypertension 2220099 Active 2023 GALE Dalal Attn: Accountin g,[address] , [place], [address], [place] [facility] 4 10:39:04 Hypothyroidism 01384324 Active 2023 GALE Dalal Attn: Accountin g,[address], [place], [address], [place] [facility] 4 10:39:05 Hyperlipidemia 67607250 Active 2023 GALE Dalal Attn: Accountin g,[address] , [place], [address], [place] [facility] 4 10:39:06 Overweight in adulthood with body mass index of 25 or more but less than 30 969443021 Active 2024 GALE Dalal Attn: Rosa Maria diaz,[address], [place], [address], [facility] 5 23:56:41 Problem Notes None recorded. Procedures Surgical History Date Name Laterality Status Provider Name and Address Organization Details Recorded Time 2 Eye Surgery completed Nawaf Strickland MA [facility] 01/15/2024 10:52:11 section completed Nawaf Strickland MA [facility] 01/15/2024 10:52:41 LEEP completed Nawaf Strickland MA [facility] 01/15/2024 10:52:52 Imaging Results None recorded. Procedure Notes None recorded. Medical Equipment None Reported. Allergies Allergen ID Allergen Name Allergen Category Reaction Reaction Severity Criticality Documentation Date Start Date Code Code System Note Provider Name and Address Organization Details Recorded Time 223818 Substance with sulfonami de structure and antibacte rial mechanism of action (substanc e) medicatio n respirato ry distress Not available Not available 01/15/2024 31188 [id number] SNOMED Nawaf Strickland MA null, [facility] 4 09:59:31 Medications Name Sig Start Date Stop Date Status Note LastModified by Organization Details LastModified Time nystatin 1mu/oz, hydrocortis one 1%, zinc oxide 1% topical gel Apply to affected areas twice daily for 3 weeks then as needed. active Not Available Not Available No t Available prednisone 20 mg tablet TAKE 1 TABLET BY MOUTH DAILY FOR 5 DAYS 01/14 completed Not Available Not Available Not Available Synthroid 100 mcg tablet Take 1 tablet every day by oral route. 2024 active Not Available Not Available Not Avai lable ciprofloxac in 0.3 % eye drops INSTILL 2 DROPS IN LEFT EYE EVERY 4 HOURS FOR 7 DAYS active Not Available Not Available No t Available benzonatate 100 mg capsule TAKE 1 CAPSULE BY MOUTH THREE TIMES DAILY NEEDED 01/14 completed Not Available Not Available Not Available simvastatin 20 mg tablet Take 1 tablet every day by oral route. 2024 active Not Available Not Available Not Avai lable lisinopril 10 mg tablet Take 1 tablet every day by oral route. 2024 active Not Available Not Available Not Avai lable ipratropium bromide 21 mcg (0.03 %) nasal spray USE 2 SPRAYS IN EACH NOSTRIL THREE TIMES DAILY active Not Available Not Available No t Available ciprofloxac in 0.3 %-dexametha sone 0.1 % ear drops,suspe nsion SHAKE LIQUID AND INSTILL 4 DROPS TO AFFECTED EAR TWICE DAILY FOR 7 DAYS 01/14 completed Not Available Not Available Not Available Paxlovid 300 mg (150 mg x 2)-100 mg tablets in a dose pack TAKE 2 NIRMATREL VIR TABLETS AND 1 RITONAVIR TABLET TOGETHER BY MOUTH TWICE DAILY FOR 5 DAYS 01/14 completed Not Available Not Available Not Available Vitals Date Recorded Systolic And Diastolic Provider Name and Address Organization Details Last Updated DateTime 01/15/2024 136/82 mm[Hg] GALE Dalal Attn: Accounting,[address] [place], [address], [facility] 01/15/2024 10:43:41 Date Recorded Body height Body mass index (BMI) Body weight Respiratory rate Oxygen saturation Oxygen saturation in Arterial blood by Pulse oximetry Heart rate Systolic And Diastolic Provider Name and Address Organization Details Last Updated DateTime 4 167.64 cm 29.2 kg/m2 87640.8 6 g 18 /min 97 % 97 % 78 /min 132/82 mm[Hg] Nawaf Strickland MA [facility] 4 10:05:24 Date Recorded Heart rate Systolic And Diastolic Provider Name and Address Organization Details Last Updated DateTime 01/14/2025 92 /min 136/80 mm[Hg] GALE Dalal Attn: Accounting,[address] [place], [address], [facility] 01/25/2025 23:55:37 Date Recorded Body height Body mass index (BMI) Body weight Oxygen saturation Oxygen saturation in Arterial blood by Pulse oximetry Respiratory rate Systolic And Diastolic Systolic And Diastolic Provider Name and Address Organization Details Last Updated DateTime 5 167.64 cm 27.4 kg/m2 48975.7 g 100 % 100 % 18 /min 140/82 mm[Hg] 140/82 mm[Hg] Nawaf Strickland [place] [facility] 09:57:25 Social History Question Answer Notes LastModified by Organizat ion Details LastModified Time Tobacco Smoking Status Never Smoker Nawaf Strickland MA null, [place] [facility] [place] 01/15/2024 10:03:19 Do You Have An Advance Directive? No Information not available 01/15/2024 Are You Blind Or Do You Have Difficulty Seeing? No CONTACTS Information not available 01/15/2024 What Is Your Level Of Caffeine Consumption? Moderate 2-3 A WEEK Information not available 01/15/2024 In The 14 Days Before Symptom Onset, Have You Had Close Contact With A Laboratory-confir med COVID-19 While That Case Was Ill? No Information not available 01/15/2024 In The 14 Days Before Symptom Onset, Have You Had Close Contact With A Person Who Is Under Investigation For COVID-19 While That Person Was Ill? No Information not available 01/15/2024 Have You Been To An Area Known To Be High Risk For COVID-19? No Information not available 01/15/2024 Are You Deaf Or Do You Have Serious Difficulty Hearing? No Information not available 01/15/2024 What Type Of Diet Are You Following? REGULAR Information not available 01/15/2024 Are There Any Guns Present In Your Home? No Information not available 01/15/2024 What Was The Date Of Your Most Recent Tobacco Screening? 01/14/2025 Information not available 01/14/2025 Do You Use Your Seat Belt Or Car Seat Routinely? Yes Information not available 01/15/2024 Do You Have Smoke And Carbon Monoxide Detectors In Your Home? Yes Information not available 01/15/2024 Do You Use Sunscreen Routinely? No SUNSCREEN IN SUN Information not available 01/15/2024 Has Tobacco Cessation Counseling Been Provided? Yes Information not available 01/15/2024 On What Date Was Tobacco Cessation Counseling Provided? 01/14/2025 Information not available 01/14/2025 Sex: Female Functional Status Question Answer Note LastModified by Organizat ion Details LastModified Time Do you use any illicit or recreational drugs? No Information not available 01/15/2024 Do you or have you ever used any other forms of tobacco or nicotine? No Information not available 01/15/2024 What is your level of alcohol consumption? None Information not available 01/15/2024 Are you currently employed? Yes Information not available 01/15/2024 Are you able to care for yourself independently? 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 Moderate walk Information not available 01/15/2024 Mental Status None recorded. Family History Relationship Description Onset Age of this Age Resolved Age Notes LastModified by Organization Details LastModified Time Mother Disorder of thyroid gland tcarterma Not available 2023 10:53:07 Mother Hypercholest erolemia tcarterma Not available 2023 10:53:29 Sister Disorder of thyroid gland tcarterma Not available 2023 10:53:07 Sister Hypertensive disorder tcarterma Not available 2023 10:53:15 Sister Hypercholest erolemia tcarterma Not available 2023 10:53:29 Sister Migraine tcarterma Not availabl e 01/15/2024 10:53:37 Father Hypertensive disorder tcarterma Not available 2023 10:53:15 Father Hypercholest erolemia tcarterma Not available 2023 10:53:29 Medical History Condition Response Coronary Artery Disease N Other N Atrial Fibrillation N High Blood Pressure Y Kidney or Bladder Problems N Thyroid Problems Y GI Problems N Depression N COPD N Blood Clots N Skin Problems N Anemia N Heart Attack ([place]) N Anxiety Disorder N Diabetes N Muscle, Joint, or Bone Problems N Seizures/Epilepsy N Acid Reflux (GERD) N Cancer N Stroke N Asthma N Allergies N High Cholesterol Y Hepatitis N Liver Disease N Headaches N Heart Failure N Osteoporosis N Gynecological History Statement/Question Response Menses Monthly N Current Control Method Other Obstetrics History GPAL:G 2 P 1 1 0 2 Type Value Full Term 1 Induced 0 Spontaneous 0 Premature 1 Living 2 Total 2 Immunizations Vaccine Type Date Status Note Provider Nam e and Address Organization Details Recorded Time Influenza, split virus, trivalent, preservative 3 completed Not Available [facility] 01/14/2025 09:46:21 Influenza, split virus, trivalent, preservative 4 completed Not Available [facility] 01/14/2025 09:46:21 Influenza, split virus, trivalent, PF 5 completed Not Available [facility] 01/14/2025 09:46:21 Influenza, split virus, trivalent, PF 6 completed Not Available [facility] 01/14/2025 09:46:21 Tdap 7 completed Not Available [facility] 01/14/2025 09:46:21 Influenza, split virus, trivalent, preservative 7 completed Not Available [facility] 01/14/2025 09:46:21 Influenza, split virus, quadrivalent, PF 8 completed Not Available [facility] 01/14/2025 09:46:21 Influenza, MDCK, quadrivalent, PF 9 completed Not Available [facility] 01/14/2025 09:46:21 Influenza, split virus, quadrivalent, preservative 9 completed Not Available [facility] 01/14/2025 09:46:21 Tdap 0 completed Not Available [facility] 01/14/2025 09:46:21 Influenza, MDCK, quadrivalent, PF 0 completed Not Available [facility] 01/14/2025 09:46:21 COVID-19, mRNA, LNP-S, PF, 100 mcg/0.5mL dose or 50 mcg/0.25mL dose 1 completed Not Available [facility] 01/14/2025 09:46:21 COVID-19, mRNA, LNP-S, PF, 100 mcg/0.5mL dose or 50 mcg/0.25mL dose 1 completed Not Available [facility] 01/14/2025 09:46:21 Influenza, split virus, trivalent, preservative 1 completed Not Available [facility] 01/14/2025 09:46:21 COVID-19, mRNA, LNP-S, PF, 100 mcg/0.5mL dose or 50 mcg/0.25mL dose 1 completed Not Available [facility] 01/14/2025 09:46:21 COVID-19, mRNA, LNP-S, PF, 100 mcg/0.5mL dose or 50 mcg/0.25mL dose 2 completed Not Available [facility] 01/14/2025 09:46:21 zoster recombinant 2 completed Not Available [facility] 01/14/2025 09:46:21 Influenza, MDCK, quadrivalent, PF 2 completed Not Available [facility] 01/14/2025 09:46:21 zoster recombinant 2 completed Not Available [facility] 01/14/2025 09:46:21 RSV, recombinant, protein subunit RSVpreF, adjuvant reconstituted, 0.5 mL, PF 3 completed Not Available [facility] 01/14/2025 09:46:21 Influenza, split virus, quadrivalent, PF 3 completed Not Available [facility] 01/14/2025 09:46:21 COVID-19, mRNA, LNP-S, PF, 50 mcg/0.5 mL 3 completed Not Available [facility] 01/14/2025 09:46:21 Influenza, split virus, trivalent, PF 4 completed Not Available [facility] 01/14/2025 09:46:21 COVID-19, mRNA, LNP-S, PF, 50 mcg/0.5 mL 4 completed Not Available [facility] 01/14/2025 09:46:21 Past Encounters Encounter ID Performer Location Encounter Start Date Encounter Closed Date Diagnosis/Indication Diagnosis SNOMED-CT Code Diagnosis ICD10 Code Diagnosis IMO Codes Diagnosis Note [id number] Kevin Mandujano MD [facility] - [place] [address] [place] [address] 01/15/2024 09:41:52 01/15/2024 12:28:44 Hyperlipidemia 54137589 E78.5 on simvastati n 20mg daily. fasting lipids are due Hypothyroidism 14115939 E03.9 check updated Thyroid lab panel. on Synthroid 100mcg daily. Benign ess ential hypertension 9811832 I10 136/82 borderline today. On lisinopril 10mg daily. Long-term drug therapy 086894057 Z79.899 CMP and B12, folate labs due. Body mass index 25-29 - overweight 794022114 Z68.29 bmi 29 Thyroid nodule 447081108 E04.1 one nodule each side. follows with dr. young. check updated u/s and copy to ENT. Otalgia of right ear 028 1144368 H92.01 refer to ENT for right ear discomfort that is persistent . Hemochromatosis 80678037 [address] Joy. sees him every 6 months . UTD on CBC and iron. Adult [facility] examination 454288889 Z00.01 new pt exam. Diabetes m ellitus screening 625229228 Z13.1 a1c annual screening due. [id number] Kevin Mandujano MD [facility] [place] [address] [place] [address] 01/14/2025 09:45:16 01/14/2025 12:03:47 Overweight in adulthood with body mass index of 25 or more but less than 30 364632897 E66.3 Z68.27 5187273231 bmi 27.4 Adult [facility] th examination 823358745 Z00.01 Annual wellness exam completed Hyperlipidemia 78452902 E78.5 on simvastati n 20mg daily. fasting lipids are due Hypothyroidism 78392236 E03.9 check updated Thyroid lab panel. on Synthroid 100mcg daily. Benign ess ential hypertension 3786773 I10 136/82 borderline today. On lisinopril 10mg daily. Continue healthy diet modificati ons, exercise and keeping caffeine and sodium controlled in the diet. Thyroid nodule 424975293 E04.1 one nodule each side. follows with dr. young. check updated u/s and copy to ENT. Hemochromatosis 47388791 [address] Joy. sees him every 6 months . UTD on CBC and iron. Long-term drug therapy 940598713 Z79.899 CMP and B12, folate labs due. Body mass index 25-29 - overweight 546456729 Z68.29 bmi 29 Diabetes m ellitus screening 190368288 Z13.1 a1c annual screening due. Health Concerns Section Related Observation LastModified by Organization Detai ls LastModified Time None Recorded Concern Status LastModified by Organization Details LastModified Time None Recorded Advance Directives Directive N: Payers Insurance Date Sequence Insurance Name Policy Number Policy [place] Covered Member ID [place] Member ID Guarantor Name 01/26/2025 1 [facility] [id number] Saharajuan miguel Cancino [id number] Sahara Cancino Notes Date Note Type Note Provider Name and Address Organization Details Recorded Time 4 text/html HyperlipidemiaReported by Patientpt is taking simvastatin 20mg daily. due for updated labs. HypertensionReported by Patientpt is taking lisinopril 10mg daily. EaracheReported by PatientOnset jul/aug. Right ear felt like hot ice pick in ear, tender anterior and posterior, flashes of pain. didn't see anyone for it. In november went to urgent care and nothing was seen, given drops but it goes away after minutes or hours. ThyroidReported by Patientpt is on synthroid 100mcg daily via [facility]. GALE Dalal Attn: Accounting,[address] [facility], [place], [address], [facility] 01/31/2024 22:28:00 5 text/html HyperlipidemiaReported by Patientpt is taking simvastatin 20mg daily. due for updated labs. HypertensionReported by Patientpt is taking lisinopril 10mg daily. ThyroidReported by Patientpt is on synthroid 100mcg daily via [facility]. GALE Dalal Attn: Accounting,[address] [facility], [place], [address], [facility] 01/25/2025 23:57:21 OBGyn Episode No OBEpisode recorded.
--- OUTSIDE RECORDS SUMMARY | 2025-05-20 19:47 | XMS_ITS | Encounter Summary ---
Author Organization [facility] Address [address] [place] [address] Care Team Providers Care Meteorologist Liaison Name Role Phone Neal Barger DO Primary Care Provider Neal Barger DO Primary Care Provider Miriam Laurent Primary Care Pr ovider Encounter Details Date Type Department Care Team (Late st Contact Info) Description 08/24/2016 Orders Only [facility] Provider, MD Haley [address] [place] [address] Social History Tobacco Use Types Packs/Day Years Used Date Smoking Tobacco: Never Assessed Alcohol Use Standard Drinks/Week Comments Yes 0 (1 standard drink = 0.6 oz pur e alcohol) Comments Unknown Sex and Gender Information Value Date Recorded Sex Assigned at Not on file 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
== END 2025-05-20 15:32 | disposition home or self-care (01) ==
LOC: ANHLAB 15:32
PROVIDERS: PCP Physician Assistant; Visit Provider Internal Medicine Hematology & Oncology
DX: E83.19 Other disorders of iron metabolism (principal)
CPT/HCPCS: 36415; 82607; 82728; 82746; 83540; 83550; 85027